=== PATIENT | male | born 1985 | race Caucasian/White ===

== ENCOUNTER 2019-04-16 21:51 | Emergency (ER) | payer SELFPAY ==
[~2019-04-16] VITALS: Ht 180.3 cm; Wt 70.3 kg
[~2019-04-16 21:51] MED LIST: ACHD5005 PO; NAPR-243 PO; PENI500T PO; TRM50T PO
--- NOTE | 2019-04-16 23:16 | NUR ---
pt relates alcohol tonoc and denies illegal drugs. positive pulse and sensation right foot. done seing pt now.
--- NOTE | 2019-04-16 23:56 | ED Lower Extremity ---
General Chief Complaint: Lower Extremity Stated Complaint: KICKED DEEP FREEZE/R FOOT PAIN Nursing Triage Note: pt here with " lizabeth and my stepson" who is a child. pt alert gcs 15. pt relates he kicked a deep freezer 3 hrs ago. pt c/o pain right lateral foot. pain rating 10. positive pulse and sensation right foot. on exam pt has ? deformity right lateral foot just below lateral ankle. no obvious injury right ankle and pt denies pain in ankle. no obvious injury toes or dorsal foot noted. Nursing Sepsis Screen: No Definite Risk Source: patient, family Exam Limitations: no limitations (WIL TERRY) History of Present Illness Date Seen by Provider: Apr 16, 2019 Time Seen by Provider: 23:45 Initial Comments Pt presents with left foot pain from kicking a deep freezer about 3 hours ago. He was drinking a little earlier tonight and kicked the freezer. The pain is over the 4th and 5 metatarsal area with mild bruising and swelling. The pain is worse with movement of the toes and to pressure. He states it is difficult to wa lk on the foot. Onset: this evening Pain/Injury Location: right 4th toe, right 5th toe Method of Injury: direct blow Modifying Factors: Worse With Movement (WIL TERRY) Onset: this evening Severity: moderate Method of Injury: direct blow Modifying Factors: Worse With Movement; Improves With Rest (SIL KERN MD) Allergies and Home Medications Allergies Coded Allergies: No Known Allergies (Unverified Allergy, Mild, 10/15/09) Home Medications Hydrocodone Bit/Acetaminophen 1 Each Tablet, 1-2 EACH PO Q 4 HOURS PRN PAIN Prescribed by: JOSE RAUL TOPETE on 12/21/11 1051 Patient Home Medication List Home Medication List Reviewed: Yes (SIL KERN MD) Review of Systems Constitutional: no symptoms reported EENTM: no symptoms reported Respiratory: no symptoms reported Cardiovascular: no symptoms reported Gastrointestinal: no symptoms reported Genitourinary: no symptoms reported Musculoskeletal: see HPI Skin: other (Mild edema and bruising over the injured area) Psychiatric/Neurological: No Symptoms Reported (WIL TERRY) Constitutional: no symptoms reported Respiratory: no symptoms reported Cardiovascular: no symptoms reported Musculoskeletal: joint pain, muscle pain Skin: change in color; No lesions (SIL KERN MD) Past Jtpsaax-Eckjel-Vlhyiy Hx Past Med/Social Hx: Reviewed Nursing Past Med/Soc Hx (SIL KERN MD) Patient Social History Alcohol Use: Occasionally Uses Recreational Drug Use: No Smoking Status: Current Everyday Smoker Recent Foreign Travel: No Contact w/Someone Who Travel: No Recent Infectious Disease Expo: No Physical Abuse: No Sexual Abuse: No (WIL TERRY) Alcohol Use: Regular Use (SIL KERN MD) Family Medical History No Pertinent Family Hx (SIL KERN MD) Physical Exam Vital Signs Vital Signs - First Documented 04/16/19 23:06 Temp 98.0 Pulse 88 Resp 16 B/P (MAP) 127/103 (111) Pulse Ox 94 O2 Delivery Room Air (SIL KERN MD) Vital Signs Capillary Refill : Less Than 3 Seconds (WIL TERRY) Height, Weight, BMI Height: 5'11.00" Weight: 155lbs. oz. 70.561598ms; BMI Method:Stated General Appearance: WD/WN, no apparent distress Cardiovascular: normal peripheral pulses, no edema, no JVD Feet: left foot non-tender, left foot normal range of motion; right foot bone tenderness, right foot limited range of motion, right foot pain, right foot swelling Neurologic/Tendon: normal sensation, normal motor functions, normal tendon functions, responds to pain, no evidence tendon injury Skin: normal color, warm/dry (WIL TERRY) General Appearance: WD/WN, no apparent distress Cardiovascular: regular rate, rhythm, no murmur Respiratory: lungs clear, normal breath sounds Feet: right foot other (small amount of ecchymosis to the lateral aspect of the foot over the fourth/fifth metatarsal base. Good range of motion. No obvious lesions otherwise.) Neurologic/Psychiatric: alert, oriented x 3 Skin: warm/dry, ecchymosis (as described above) (SIL KERN MD) Progress/Results/Core Measures Results/Orders My Orders Orders - SIL KERN MD Foot, Right, 3 View (04/16/19 23:46) (SIL KERN MD) Vital Signs/I&O 04/16/19 23:06 Temp 98.0 Pulse 88 Resp 16 B/P (MAP) 127/103 (111) Pulse Ox 94 O2 Delivery Room Air (SIL KERN MD) Blood Pressure Mean: 111 Progress Progress Note : Time: 23:45 Progress Note Seen by me. Pt has mild bruising and swelling over the right 4th and 5th metatarsals. It is tender to touch. Possible fracture. Xray of foot order by Dr. Kern. (WIL TERRY) Progress Note : Progress Note Seen and evaluated. I agree with above except as indicated. Have directed the plan of care. Patient is here with right foot pain after kicking a freezer. He admits to drinking alcohol tonight. States he does not think he has a problem with that but we'll continue to monitor. We did discuss concerns for alcoholism. X-ray ordered and shows no acute fracture. Discharged home with return precautions. Patient verbalize understanding instructions and agreement with plan. (SIL KERN MD) Diagnostic Imaging Diagonstic Imaging: Xray Plain Films/CT/US/NM/MRI: other Comments Right foot 3 views shows no acute fracture Reviewed: Reviewed by Me (SIL KERN MD) Departure Impression Primary Impression: Contusion of foot Qualified Codes: S90.31XA - Contusion of right foot, initial encounter Disposition: 01 HOME, SELF-CARE Condition: Improved Departure-Patient Inst. Decision time for Depature: 00:38 (SIL KERN MD) Referrals: NO,LOCAL PHYSICIAN (PCP/Family) Primary Care Physician Patient Instructions: Contusion (DC) Add. Discharge Instructions: All discharge instructions reviewed with patient and/or family. Voiced u nderstanding. Use ice packs over areas of concern 20 minutes per hour as needed for pain and swelling. You may take ibuprofen 600 mg every 8 hours as needed for pain. You may also take Tylenol/acetaminophen 1000 mg every 8 hours as needed for pain. Follow-up with her in a few days for recheck. Return for worse pain, swelling, difficulty walking or other concerns as needed. Work/School Note: Work Release Form Date Seen in the Emergency Department: Apr 16, 2019 Return to Work: Apr 18, 2019 Restrictions: No Restrictions WIL TERRY Apr 16, 2019 23:56 SIL KERN MD Apr 17, 2019 00:40
--- NOTE | 2019-04-17 00:31 | NUR ---
SAID JUST ICE BAG. TECH GOT THAT FOR PT.
[2019-04-17 00:47] VITALS: BP 0/0
--- NOTE | 2019-04-17 00:47 | NUR ---
D/C INSTRUCTIONS TO PT. TOLD TO READ ALL PAPERS. NO SCRIPTS GIVEN. PT LEFT IN W/C WITH SAVANNAH. I HELPED PT TO THE CAR. PT KNOWS F/I./ I WENT OVER THE HANDTYPED BY DR GUAJARDO ON THE CHART. PT HAD NO IV. WORK RELEASE GIVEN. NO D/C VS TAKEN. PT WAS OUT IN W/R WAITING FOR HIS D/C INSTRUCTIONS.
--- NOTE | 2019-04-17 05:50 | Diagnostic Imaging Report ---
EXAMINATION: Right foot at 1157 PM INDICATION: Injury, foot pain Three views were obtained. There are no prior studies available for comparison. There is no fracture, dislocation or acute bony abnormality evident. The Lisfranc joint is well maintained. The soft tissues are unremarkable. IMPRESSION: There is no evidence for an acute bony abnormality. Dictated on workstation # [id number]
== END 2019-04-17 00:47 | disposition home or self-care (01) ==
LOC: EDUNIT# 21:51 → ER 21:52
DX: S90.31XA Contusion of right foot, initial encounter (principal); R40.2412 Glasgow coma scale score 13-15, at arrival to emergency department; F17.200 Nicotine dependence, unspecified, uncomplicated; W22.8XXA Striking against or struck by other objects, initial encounter
CPT/HCPCS: 73630

== ENCOUNTER 2019-05-21 14:10 | Outpatient (CLI) | payer OTHER ==
[~2019-05-21] VITALS: Ht 180.3 cm; Wt 70.4 kg
[2019-05-23] MEDS ORDERED: ACHD5005 PO (09:01)
== END 2019-05-21 16:07 | disposition home or self-care (01) ==
LOC: PREOP 14:10
PROVIDERS: ATTEND Surgery
DX: Z01.818 Encounter for other preprocedural examination (principal)

== ENCOUNTER 2020-04-23 20:43 | Emergency (ER) | payer SELFPAY ==
[2020-04-23] MEDS ORDERED: HYDROcodone/APAP 5 MG/325 MG (LORTAB) TAB ONE (20:59)
[2020-04-23] MEDS ORDERED: RX-HYDROCODONE/APAP 5/325 MG #4 TAB PK PO ONE (22:11)
--- NOTE | 2020-04-24 14:09 | Diagnostic Imaging Report ---
Chuckie Brito Date of : 1985. Right foot 3 views on 04/23 at 9:41 PM. Indication: Fall from a ladder. 3 views of the right foot were obtained. There is a comminuted fracture of the calcaneus with loss of Boehler's angle. Fracture lines extend into the subtalar joint. Midfoot is unremarkable. The metatarsals and phalanges appear to be intact. IMPRESSION: Comminuted intra-articular calcaneus fracture. Dictated by: Dictated on workstation # [id number]
--- NOTE | 2020-04-24 14:09 | Diagnostic Imaging Report ---
Chuckie Brito Date of : 1985 Right ankle 3 views on 04/23 at 9:35 PM. Indication: Fall from a ladder. 3 views of the right ankle were obtained. Ankle mortise is well maintained. Talar dome is smooth. There is a comminuted fracture of the calcaneus with loss of Boehler's angle. Fracture lines extend into this subtalar joint. Moderate soft tissue swelling about the lateral ankle is noted. IMPRESSION: Comminuted intra-articular calcaneus fracture. Dictated by: Dictated on workstation # [id number]
--- NOTE | 2020-04-24 14:10 | Diagnostic Imaging Report ---
Chuckie Brito Date of : 1985. Right tibia and fibula 2 views on 04/23 at 9:44 PM. Indication: Fall from ladder. 2 views of the right tibia and fibula were obtained. Alignment at the knee and ankle appears normal. There is comminuted fracture of the calcaneus with intra-articular extension into the subtalar joint. Impression: Calcaneus fracture. Tibia and fibula appear to be intact. There is moderate soft tissue swelling about the ankle. Dictated by: Dictated on workstation # [id number]
[2020-04-24 16:44] LABS: HEMATOCRIT 41 % (40-54); HEMOGLOBIN 14.4 G/DL (13.3-17.7); MEAN CORPUSCULAR HEMOGLOBIN 33 PG (25-34); MEAN CORPUSCULAR HGB CONC 35 G/DL (32-36); MEAN CORPUSCULAR VOLUME 96 FL (80-99); PLATELET COUNT 181 10^3/uL (130-400); RED CELL DISTRIBUTION WIDTH 13.4 % (10.0-14.5); WHITE BLOOD COUNT 6.9 10^3/uL (4.3-11.0)
[2020-04-24 16:45] LABS: BASOPHILS % (AUTO) 0 % (0-10); EOSINOPHILS # (AUTO) 0.1 10^3/uL (0.0-0.3); EOSINOPHILS % (AUTO) 1 % (0-10); LYMPHOCYTES # (AUTO) 0.9 X 10^3 (1.0-4.0); LYMPHOCYTES % (AUTO) 13 % (12-44); MEAN PLATELET VOLUME 9.4 FL (7.4-10.4); MONOCYTES # (AUTO) 0.9 X 10^3 (0.0-1.0); MONOCYTES % (AUTO) 14 % (0-12); NEUTROPHILS % (AUTO) 73 % (42-75); SODIUM 139 MMOL/L (135-145)
[2020-04-24 16:46] LABS: ALANINE AMINOTRANSFERASE 28 U/L (0-55); ALBUMIN 4.5 GM/DL (3.2-4.5); ALKALINE PHOSPHATASE 90 U/L (40-136); BILIRUBIN,TOTAL 0.8 MG/DL (0.1-1.0); BUN/CREATININE RATIO 15; CALCIUM 9.5 MG/DL (8.5-10.1); CARBON DIOXIDE 22 MMOL/L (21-32); CHLORIDE 103 MMOL/L (98-107); CREATININE SERUM 0.92 MG/DL (0.60-1.30); GFR ESTIMATED > 60; GLUCOSE 88 MG/DL (70-105); POTASSIUM 3.5 MMOL/L (3.6-5.0); TOTAL PROTEIN 7.3 GM/DL (6.4-8.2)
== END 2020-04-23 23:10 | disposition home or self-care (01) ==
LOC: EDUNIT# 20:43 → ER 20:43
DX: S92.062A Displaced intraarticular fracture of left calcaneus, initial encounter for closed fracture (principal); S92.061A Displaced intraarticular fracture of right calcaneus, initial encounter for closed fracture; W11.XXXA Fall on and from ladder, initial encounter; Y92.59 Other trade areas as the place of occurrence of the external cause; Y99.0 Civilian activity done for income or pay
CPT/HCPCS: 29515; 73590; 73610; 73630; 80053; 85025; 99284; G0480; 36415; 80320

== ENCOUNTER 2020-10-05 10:03 | Emergency (ER) | payer MEDICAID ==
[~2020-10-05] VITALS: Ht 177 cm; Wt 68.0 kg
--- NOTE | 2020-10-05 11:45 | ED Upper Extremity ---
General Chief Complaint: Laceration Stated Complaint: R HAND LACERATION Nursing Triage Note: laceration of right 2nd finger Nursing Sepsis Screen: No Definite Risk Source: patient Exam Limitations: no limitations History of Present Illness Date Seen by Provider: Oct 05, 2020 Time Seen by Provider: 11:43 Initial Comments Laceration to the pad of the middle phalanx middle finger right hand. Tetanus up-to-date. This is from the sharp edge of a toaster at home just prior to arrival. Onset: just prior to arrival Severity: moderate Pain/Injury Location: right hand Modifying Factors: Worse With Movement Allergies and Home Medications Allergies Coded Allergies: NKANo Known Allergies (Unverified Allergy, Mild, 10/15/09) Home Medications Hydrocodone Bit/Acetaminophen 1 Tab Tab, 1 TAB PO Q6H PRN for PAIN-MODERATE Prescribed by: JOSHUA BENJAMIN on 05/23/19 0901 Patient Home Medication List Home Medication List Reviewed: Yes Review of Systems Constitutional: see HPI EENTM: see HPI Respiratory: no symptoms reported Cardiovascular: no symptoms reported Genitourinary: no symptoms reported Musculoskeletal: no symptoms reported Skin: no symptoms reported Psychiatric/Neurological: No Symptoms Reported Past Ncpokmo-Opjpji-Wmhfsf Hx Patient Social History Type Used: Cigarettes Recent Infectious Disease Expo: No Recent Hopitalizations: No Seasonal Allergies Seasonal Allergies: No Past Medical History Surgeries: Yes (teeth removed, ) Respiratory: No Currently Using CPAP: No Currently Using BIPAP: No Cardiac: No Neurological: No Genitourinary: No Gastrointestinal: No Musculoskeletal: No Endocrine: No HEENT: No Cancer: No Psychosocial: No Integumentary: No Blood Disorders: No Family Medical History No Pertinent Family Hx Physical Exam Vital Signs Vital Signs - First Documented 10/05/20 10:56 Temp 36.8 Pulse 77 Resp 16 B/P (MAP) 114/79 (91) Capillary Refill : Less Than 3 Seconds Height, Weight, BMI Height: 5'11.00" Weight: 155lbs. oz. 70.063408es; 21.00 BMI Method:Stated General Appearance: WD/WN, no apparent distress Respiratory: no respiratory distress, no accessory muscle use Shoulder: normal inspection, non-tender Hand: normal inspection, non-tender, laceration (1 cm superficial laceration to the pad of the middle phalanx middle finger right hand without active bleeding. Closed with skin affix tissue adhesive) Neurologic/Psychiatric: alert, normal mood/affect, oriented x 3 Skin: normal color, warm/dry Progress/Results/Core Measures Results/Orders Vital Signs/I&O 10/05/20 10:56 Temp 36.8 Pulse 77 Resp 16 B/P (MAP) 114/79 (91) Blood Pressure Mean: 91 Departure Impression Primary Impression: Finger laceration Disposition: 01 HOME, SELF-CARE Condition: Stable Departure-Patient Inst. Decision time for Depature: 11:45 Referrals: NO,LOCAL PHYSICIAN (PCP/Family) Primary Care Physician Patient Instructions: Laceration Repair With Glue (DC) Add. Discharge Instructions: 1. Let the glue fall off on its own in 3 to 5 days. Do not apply any lotions creams or ointments. Try to keep from bending the finger much. All discharge instructions reviewed with patient and/or family. Voiced understanding. CED SCHUMACHER APRN Oct 05, 2020 11:45
[2020-10-05 12:00] VITALS: BP 114/79
== END 2020-10-05 12:00 | disposition home or self-care (01) ==
LOC: EDUNIT# 10:03 → ER 10:05
DX: S61.312A Laceration without foreign body of right middle finger with damage to nail, initial encounter (principal); W45.8XXA Other foreign body or object entering through skin, initial encounter
CPT/HCPCS: 99282

== ENCOUNTER 2020-10-24 23:58 | Emergency (ER) | payer MEDICAID ==
[~2020-10-24] VITALS: Ht 177 cm; Wt 68.0 kg
--- NOTE | 2020-10-25 00:08 | ED Psychosocial ---
General Stated Complaint: ETOH Source: patient, EMS, spouse Exam Limitations: no limitations History of Present Illness Date Seen by Provider: Oct 24, 2020 Time Seen by Provider: 23:57 Initial Comments Patient presents ER by EMS from side of the road where police found him wandering. EMS says the relates he had been drinking vodka tonight and was asleep on the couch when she went to bed and he could not have been gone for more than about 90 minutes. Temperature was 93 degrees when EMS encountered him. They initiated 2 IVs and a liter of warm saline. Patient does not give much meaningful history about what he was doing tonight of them drinking and he needs to urinate. He denies pain anywhere, shortness of air. He was able to move himself across the bed under his own power. Allergies and Home Medications Allergies Coded Allergies: DENISEANo Known Allergies (Unverified Allergy, Mild, 10/15/09) Home Medications Hydrocodone Bit/Acetaminophen 1 Tab Tab, 1 TAB PO Q6H PRN for PAIN-MODERATE Prescribed by: JOSHUA BENJAMIN on 05/23/19 0901 Patient Home Medication List Home Medication List Reviewed: Yes Review of Systems Constitutional: No chills, No diaphoresis EENTM: No ear discharge, No ear pain Respiratory: No cough, No short of breath Cardiovascular: No edema, No palpitations Gastrointestinal: No abdominal pain, No nausea, No vomiting Genitourinary: No discharge, No dysuria Musculoskeletal: No back pain, No joint pain All Other Systems Reviewed Negative Unless Noted: Yes Past Ndivewx-Ppzuhq-Bfkjxu Hx Patient Social History Alcohol Use: Regular Use Smoking Status: Current Everyday Smoker Type Used: Cigarettes Recent Hopitalizations: No Seasonal Allergies Seasonal Allergies: No Past Medical History Surgeries: Yes (teeth removed, "FATTY TUMOR REMOVED FROM RT CHIN/NECK) Respiratory: No Currently Using CPAP: No Currently Using BIPAP: No Cardiac: No Neurological: No Genitourinary: No Gastrointestinal: No Musculoskeletal: No Endocrine: No HEENT: No Cancer: No Psychosocial: No Integumentary: No Blood Disorders: No Family Medical History No Pertinent Family Hx Physical Exam Vital Signs - First Documented 10/24/20 23:58 Temp 34.7 Pulse 79 Resp 18 B/P (MAP) 127/97 (107) Pulse Ox 97 O2 Delivery Room Air Capillary Refill : Height, Weight, BMI Height: 5'11.00" Weight: 155lbs. oz. 70.602415mf; 21.00 BMI Method:Stated General Appearance: WD/WN, mild distress HEENT: PERRL/EOMI (4 mm bilateral reactive. Negative for raccoon sign.), normal ENT inspection, TMs normal (Negative for hemotympanum or arcos sign), pharynx normal Neck: non-tender, full range of motion, normal inspection Respiratory: lungs clear, normal breath sounds, no respiratory distress, no accessory muscle use Cardiovascular: normal peripheral pulses, regular rate, rhythm Peripheral Pulses: 2+ Radial Pulses (R), 2+ Radial Pulses (L) Gastrointestinal: non tender, soft Neurologic/Psychiatric: alert, normal mood/affect, other (Oriented to person but not time place or situation. Cooperative.) Behavior/Eye Contact: cooperative, good eye contact Thoughts/Hallucinations: normal thought pattern, no apparent hallucination Skin: normal color, cool Progress/Results/Core Measures Results/Orders Lab Results Laboratory Tests Test 10/25/20 00:00 10/25/20 00:08 Range/Units White Blood Count 7.1 4.3-11.0 10^3/uL Red Blood Count 4.85 4.30-5.52 10^6/uL Hemoglobin 15.3 13.3-17.7 g/dL Hematocrit 45 40-54 % Mean Corpuscular Volume 93 80-99 fL Mean Corpuscular Hemoglobin 32 25-34 pg Mean Corpuscular Hemoglobin Concent 34 32-36 g/dL Red Cell Distribution Width 13.5 10.0-14.5 % Platelet Count 246 130-400 10^3/uL Mean Platelet Volume 9.3 9.0-12.2 fL Immature Granulocyte % (Auto) 0 % Neutrophils (%) (Auto) 62 42-75 % Lymphocytes (%) (Auto) 28 12-44 % Monocytes (%) (Auto) 7 0-12 % Eosinophils (%) (Auto) 2 0-10 % Basophils (%) (Auto) 1 0-10 % Neutrophils # (Auto) 4.4 1.8-7.8 10^3/uL Lymphocytes # (Auto) 2.0 1.0-4.0 10^3/uL Monocytes # (Auto) 0.5 0.0-1.0 10^3/uL Eosinophils # (Auto) 0.2 0.0-0.3 10^3/uL Basophils # (Auto) 0.0 0.0-0.1 10^3/uL Immature Granulocyte # (Auto) 0.0 0.0-0.1 10^3/uL Sodium Level 144 135-145 MMOL/L Potassium Level 4.1 3.6-5.0 MMOL/L Chloride Level 111 H 98-107 MMOL/L Carbon Dioxide Level 20 L 21-32 MMOL/L Anion Gap 13 5-14 MMOL/L Blood Urea Nitrogen 12 7-18 MG/DL Creatinine 0.94 0.60-1.30 MG/DL Estimat Glomerular Filtration Rate > 60 BUN/Creatinine Ratio 13 Glucose Level 92 70-105 MG/DL Calcium Level 8.2 L 8.5-10.1 MG/DL Corrected Calcium 7.9 L 8.5-10.1 MG/DL Magnesium Level 2.3 1.6-2.4 MG/DL Total Bilirubin 0.2 0.1-1.0 MG/DL Aspartate Amino Transf (AST/SGOT) 20 5-34 U/L Alanine Aminotransferase (ALT/SGPT) 13 0-55 U/L Alkaline Phosphatase 109 40-136 U/L Total Protein 7.4 6.4-8.2 GM/DL Albumin 4.4 3.2-4.5 GM/DL Serum Alcohol 368 *H <10 MG/DL Urine Color YELLOW Urine Clarity CLEAR Urine pH 6.0 5-9 Urine Specific [place] <=1.005 1.016-1.022 Urine Protein NEGATIVE NEGATIVE Urine Glucose (UA) NEGATIVE NEGATIVE Urine Ketones NEGATIVE NEGATIVE Urine Nitrite NEGATIVE NEGATIVE Urine Bilirubin NEGATIVE NEGATIVE Urine Urobilinogen 0.2 < = 1.0 MG/DL Urine Leukocyte Esterase NEGATIVE NEGATIVE Urine RBC (Auto) NEGATIVE NEGATIVE Urine RBC NONE /HPF Urine WBC NONE /HPF Urine Squamous Epithelial Cells 0-2 /HPF Urine Crystals NONE /LPF Urine Bacteria NEGATIVE /HPF Urine Casts NONE /LPF Urine Mucus SMALL H /LPF Urine Culture Indicated NO Urine Opiates Screen NEGATIVE NEGATIVE Urine Oxycodone Screen NEGATIVE NEGATIVE Urine Methadone Screen NEGATIVE NEGATIVE Urine Propoxyphene Screen NEGATIVE NEGATIVE Urine Barbiturates Screen NEGATIVE NEGATIVE Ur Tricyclic Antidepressants Screen NEGATIVE NEGATIVE Urine Phencyclidine Screen NEGATIVE NEGATIVE Urine Amphetamines Screen NEGATIVE NEGATIVE Urine Methamphetamines Screen NEGATIVE NEGATIVE Urine Benzodiazepines Screen NEGATIVE NEGATIVE Urine Cocaine Screen NEGATIVE NEGATIVE Urine Cannabinoids Screen NEGATIVE NEGATIVE My Orders Orders - ZOFIA CALERO Cbc With Automated Diff (10/25/20 00:02) Comprehensive Metabolic Panel (10/25/20 00:02) Magnesium (10/25/20 00:02) Alcohol (10/25/20 00:02) Ua Culture If Indicated (10/25/20 00:02) Drug Screen Stat (Urine) (10/25/20 00:02) Ct Head/Cervical Spine Wo (10/25/20 00:02) Vital Signs/I&O 10/24/20 23:58 Temp 34.7 Pulse 79 Resp 18 B/P (MAP) 127/97 (107) Pulse Ox 97 O2 Delivery Room Air Progress Progress Note : Time: 00:07 Progress Note The patient is about 95 degrees at the time he arrives. We are going to continue some warming fluids, blankets and get some blood in urine. Diagnostic Imaging Diagonstic Imaging: CT Plain Films/CT/US/NM/MRI: c-spine, head Comments No acute intracranial hemorrhage, mass-effect, midline shift, tumor or fracture of the calvarium. Normal cervical spine CT. Reviewed: Reviewed [facility] Study, Reviewed by Me Departure Impression Primary Impression: Alcohol intoxication Qualified Codes: F10.920 - Alcohol use, unspecified with intoxication, uncomplicated Additional Impression: Hypothermia Qualified Codes: T68.XXXA - Hypothermia, initial encounter Disposition: 01 HOME, SELF-CARE Condition: Improved Departure-Patient Inst. Decision time for Depature: 00:52 Referrals: NO,LOCAL PHYSICIAN (PCP/Family) Primary Care Physician Patient Instructions: Alcohol Intoxication ED, Hypothermia Add. Discharge Instructions: Stay home under supervision. Use of blankets, drinking of mildly warm fluids such as water, tea etc. are recommended. Abstain from alcohol for now. Follow-up with your primary care doctor as necessary. Work/School Note: Work Release Form Date Seen in the Emergency Department: Oct 25, 2020 Return to Work: Oct 26, 2020 Restrictions: No Restrictions ZOFIA CALERO Oct 25, 2020 00:08
[2020-10-25 00:17] LABS: BILIRUBIN,URINE NEGATIVE (NEGATIVE); CLARITY,URINE CLEAR; COLOR,URINE YELLOW; GLUCOSE, URINE (UA) NEGATIVE (NEGATIVE); KETONES,URINE NEGATIVE (NEGATIVE); LEUKOCYTE ESTERASE ,URINE NEGATIVE (NEGATIVE); NITRITE,URINE NEGATIVE (NEGATIVE); PROTEIN,URINE NEGATIVE (NEGATIVE)
[2020-10-25 00:20] LABS: ALBUMIN 4.4 GM/DL (3.2-4.5)
[2020-10-25 00:21] LABS: BASOPHILS % (AUTO) 1 % (0-10); CHLORIDE 111 MMOL/L (98-107); EOSINOPHILS # (AUTO) 0.2 10^3/uL (0.0-0.3); EOSINOPHILS % (AUTO) 2 % (0-10); HEMATOCRIT 45 % (40-54); HEMOGLOBIN 15.3 g/dL (13.3-17.7); LYMPHOCYTES % (AUTO) 28 % (12-44); MEAN CORPUSCULAR HEMOGLOBIN 32 pg (25-34); MEAN CORPUSCULAR HGB CONC 34 g/dL (32-36); MEAN CORPUSCULAR VOLUME 93 fL (80-99); MEAN PLATELET VOLUME 9.3 fL (9.0-12.2); MONOCYTES # (AUTO) 0.5 10^3/uL (0.0-1.0); MONOCYTES % (AUTO) 7 % (0-12); NEUTROPHILS # (AUTO) 4.4 10^3/uL (1.8-7.8); NEUTROPHILS % (AUTO) 62 % (42-75); PLATELET COUNT 246 10^3/uL (130-400); POTASSIUM 4.1 MMOL/L (3.6-5.0); SODIUM 144 MMOL/L (135-145); WHITE BLOOD COUNT 7.1 10^3/uL (4.3-11.0)
[2020-10-25 00:22] LABS: CALCIUM 8.2 MG/DL (8.5-10.1)
[2020-10-25 00:23] LABS: GLUCOSE 92 MG/DL (70-105); TOTAL PROTEIN 7.4 GM/DL (6.4-8.2)
[2020-10-25 00:24] LABS: CARBON DIOXIDE 20 MMOL/L (21-32)
[2020-10-25 00:25] LABS: BILIRUBIN,TOTAL 0.2 MG/DL (0.1-1.0)
[2020-10-25 00:26] LABS: BACTERIA,URINE NEGATIVE /HPF; SQUAMOUS EPITHELIAL CELL,UR 0-2 /HPF
[2020-10-25 00:26] LABS: ALKALINE PHOSPHATASE 109 U/L (40-136)
[2020-10-25 00:27] LABS: CREATININE SERUM 0.94 MG/DL (0.60-1.30); GFR ESTIMATED > 60
[2020-10-25 00:28] LABS: BUN/CREATININE RATIO 13
[2020-10-25 00:30] LABS: ALANINE AMINOTRANSFERASE 13 U/L (0-55); MAGNESIUM 2.3 MG/DL (1.6-2.4)
[2020-10-25 00:31] LABS: AMPHETAMINE SCREEN, URINE NEGATIVE (NEGATIVE); BARBITURATE SCREEN URINE NEGATIVE (NEGATIVE); BENZODIAZEPINES SCREEN URINE NEGATIVE (NEGATIVE); CANNABINOID SCREEN, URINE NEGATIVE (NEGATIVE); COCAINE SCREEN URINE NEGATIVE (NEGATIVE); METHADONE STAT NEGATIVE (NEGATIVE); METHAMPHETAMINE SCREEN URINE S NEGATIVE (NEGATIVE); OPIATE SCREEN URINE NEGATIVE (NEGATIVE); OXYCODONE STAT NEGATIVE (NEGATIVE); PROPOXYPHENE STAT NEGATIVE (NEGATIVE); TRICYCLIC ANTIDEPRESSANTS SCRE NEGATIVE (NEGATIVE)
[2020-10-25 00:59] VITALS: BP 118/79
--- NOTE | 2020-10-25 05:16 | Diagnostic Imaging Report ---
PROCEDURE: CT head and CT cervical spine without contrast. TECHNIQUE: Multiple contiguous axial images were obtained through the brain and cervical spine without the use of intravenous contrast. Sagittal and coronal reformations through the cervical spine were then performed. Auto Exposure Controls were utilized during the CT exam to meet ALARA standards for radiation dose reduction. INDICATION: Trauma There are no prior studies available for comparison. CT HEAD: There is no mass, shift of the midline or hemorrhage to suggest an acute intracranial abnormality. The ventricles are not abnormally dilated. The bone windows show no evidence for a fracture or for a destructive lesion. The orbits are symmetrical and within normal limits. There is mucosal thickening of both maxillary antra. The sinuses are otherwise generally clear. IMPRESSION: 1. There is no evidence for an acute intracranial abnormality. 2. If clinical concern regarding an underlying abnormality persists, then MRI would be recommended for further study. CT cervical spine: The reconstructed parasagittal images show the vertebral body heights and alignment to be generally within normal limits. The intervertebral disc spaces are fairly well-maintained. There is no high-grade central stenosis noted. There is no fracture or acute bony abnormality appreciated. There is no sign of retropharyngeal edema. The thyroid gland is not well visualized. The lung apices were not included on this exam either. IMPRESSION: 1. There is no evidence for an acute bony abnormality in the cervical spine. 2. I agree with the [facility] interpretation of the study. Dictated by: Dictated on workstation # [id number]
== END 2020-10-25 01:10 | disposition home or self-care (01) ==
LOC: EDUNIT# 23:58 → ER 10-25
DX: F10.129 Alcohol abuse with intoxication, unspecified (principal); T68.XXXA Hypothermia, initial encounter; F17.210 Nicotine dependence, cigarettes, uncomplicated; X31.XXXA Exposure to excessive natural cold, initial encounter
CPT/HCPCS: 70450; 72125; 80053; 80306; 81000; 83735; 85025; 99283; G0480; 36415; 80320

== ENCOUNTER 2021-01-08 23:55 | Observation (INO) | payer MEDICAID ==
[~2021-01-08] VITALS: Ht 177.8 cm; Wt 65.4 kg
[2021-01-09] MEDS ORDERED: LACTATED RINGERS 1,000 ML IV ONE (00:15)
[2021-01-09 00:20] LABS: BILIRUBIN,URINE NEGATIVE (NEGATIVE); CLARITY,URINE CLEAR; COLOR,URINE YELLOW; GLUCOSE, URINE (UA) NEGATIVE (NEGATIVE); KETONES,URINE NEGATIVE (NEGATIVE); LEUKOCYTE ESTERASE ,URINE NEGATIVE (NEGATIVE); NITRITE,URINE NEGATIVE (NEGATIVE); PROTEIN,URINE NEGATIVE (NEGATIVE)
[2021-01-09 00:36] LABS: CHLORIDE 106 MMOL/L (98-107); POTASSIUM 3.6 MMOL/L (3.6-5.0); SODIUM 143 MMOL/L (135-145)
[2021-01-09 00:37] LABS: ALBUMIN 4.7 GM/DL (3.2-4.5); BASOPHILS % (AUTO) 1 % (0-10); EOSINOPHILS # (AUTO) 0.1 10^3/uL (0.0-0.3); EOSINOPHILS % (AUTO) 2 % (0-10); HEMATOCRIT 46 % (40-54); HEMOGLOBIN 15.7 g/dL (13.3-17.7); LYMPHOCYTES % (AUTO) 36 % (12-44); MEAN CORPUSCULAR HEMOGLOBIN 32 pg (25-34); MEAN CORPUSCULAR HGB CONC 34 g/dL (32-36); MEAN CORPUSCULAR VOLUME 93 fL (80-99); MEAN PLATELET VOLUME 9.3 fL (9.0-12.2); MONOCYTES # (AUTO) 0.6 10^3/uL (0.0-1.0); MONOCYTES % (AUTO) 10 % (0-12); NEUTROPHILS # (AUTO) 2.9 10^3/uL (1.8-7.8); NEUTROPHILS % (AUTO) 52 % (42-75); PLATELET COUNT 289 10^3/uL (130-400); WHITE BLOOD COUNT 5.7 10^3/uL (4.3-11.0)
--- NOTE | 2021-01-09 00:38 | ED General ---
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 ) History of Present Illness Date Seen by Provider: January 09, 2021 Time Seen by Provider: 00:10 Initial Comments PT ARRIVES VIA EMS FROM HOME EMS REPORT THAT FAMILY/ CALLED FOR PATIENT THAT WAS "UNRESPONSIVE" WHEN EMS ARRIVED, PT WAS AWAKE, SITTING UP AND TALKING AND IS INTOXICATED ON ARRIVAL HERE, ASKED PT WHY HE IS HERE AND HE STATES "BECAUSE I HAD TOO MUCH TO DRINK" STATES HE DRINKS HEAVILY EVERY DAY--ADMITS TO DRINKING 1/2 TO 1 PINT OF VODKA EVERY DAY STATES "I'VE HAD ALOT MORE THAN THAT" BUT STATES HE HAS NO IDEA HOW MUCH HE HAS ACTUALLY DRANK TONIGHT STATES HE STARTED DRINKING WHEN HE GOT HOME FROM WORK BETWEEN 1700 AND 1800. PT HAS NO COMPLAINTS IS UNKNOWN IF HE HAS EVER HAD ANY ALCOHOL WITHDRAWL SYMPTOMS IN THE PAST EMS REPORT THAT WAS UNABLE TO GIVE ANY HISTORY ON PT, STATING "WE HAVEN'T REALLY BEEN VERY LONG" DID NOT ACCOMPANY PT TO HOSPITAL OR CALL AT ANY TIME DURING ER STAY PCP: DINORA-K, PER PT Allergies and Home Medications Allergies Coded Allergies: NKANo Known Allergies (Unverified Allergy, Mild, 10/15/09) Home Medications Hydrocodone Bit/Acetaminophen 1 Tab Tab, 1 TAB PO Q6H PRN for PAIN-MODERATE Prescribed by: JOSHUA BENJAMIN on 05/23/19 0901 Patient Home Medication List Home Medication List Reviewed: Yes Review of Systems Review of Systems Constitutional: see HPI Respiratory: no symptoms reported Cardiovascular: no symptoms reported Gastrointestinal: no symptoms reported Genitourinary: no symptoms reported Musculoskeletal: no symptoms reported Skin: other (ABRASION ON RIGHT LOWER LEG. CHRONIC PSORIASIS) Psychiatric/Neurological: See HPI Hematologic/Lymphatic: No Symptoms Reported Immunological/Allergic: no symptoms reported Past Srqmaha-Vjmknn-Ukkgmd Hx Past Med/Social Hx: Reviewed and Corrections made Patient Social History Alcohol Use: Regular Use Alcohol Beverage of Choice: Vodka Drug of Choice: THC Smoking Status: Current Everyday Smoker Type Used: Cigarettes Recent Hopitalizations: No Substance type: Marijuana Immunizations Up To Date Tetanus Booster (TDap): Less than 5yrs Seasonal Allergies Seasonal Allergies: No Past Medical History Surgeries: Yes (TEETH REMOVED, "FATTY TUMOR" REMOVED FROM RT CHIN/NECK) Respiratory: No Currently Using CPAP: No Currently Using BIPAP: No Cardiac: No Neurological: No Genitourinary: No Gastrointestinal: No Musculoskeletal: Yes ("BROKE HIS BACK" --NO SURGERY, PER PT ) Endocrine: No HEENT: Yes (MULTIPLE DENTAL EXTRACTIONS) Cancer: No Psychosocial: Yes (SUBSTANCE ABUSE) Integumentary: Yes Psoriasis Blood Disorders: No Family Medical History No Pertinent Family Hx SOCIAL HISTORY: -ETOH--DRINKS 1/2 TO 1 PINT OF VODKA EVERY DAY, SOMETIMES MORE THAN THAT -DRUGS--REGULAR MARIJUANA USE -SMOKES 1 PPD Physical Exam Vital Signs Vital Signs - First Documented 01/09/21 00:15 Temp 36.2 Pulse 81 Resp 20 B/P (MAP) 113/92 (99) Pulse Ox 100 O2 Delivery Room Air Capillary Refill : Height, Weight, BMI Height: 5'11.00" Weight: 155lbs. oz. 70.926378ms; 21.00 BMI Method:Stated General Appearance: No Apparent Distress, WD/WN, Thin, Other (REEKS OF ETOH, DESPITE WEARING N95 PLUS SURGICAL MASK. PT IS AWAKE AND COOPERATIVE, WITH MODERATELY SLURRED SPEECH. ) HEENT: PERRL/EOMI, Normal ENT Inspection Neck: Normal Inspection, Non Tender Respiratory: Normal Breath Sounds, No Accessory Muscle Use, No Respiratory D istress Cardiovascular: Regular Rate, Rhythm, No Edema, No Murmur Gastrointestinal: Non Tender, Soft Back: Normal Inspection, No CVA Tenderness, No Vertebral Tenderness Extremity: Normal Capillary Refill, Normal Range of Motion, Non Tender, No Calf Tenderness, No Pedal Edema, Other (HAS SUPERFICIAL ABRASION TO LATERAL ASPECT OF RIGHT LOWER LEG--NO BLEEDING OR FOREIGN BODY) Neurologic/Psychiatric: Alert, Oriented x3, No Motor/Sensory Deficits, lead quality technician II- XII Norm as Tested, Other (DOES APPEAR INTOXICATED, BUT IS FAIR HISTORIAN ABOUT EVENTS OF THIS EVENING, ABLE TO FOLLOW COMMANDS, AND IS VERY COOPERATIVE AND RESPECTFUL AT THIS TIME. ) Skin: Normal Color, Warm/Dry, Other (ABRASION NOTED ABOVE. PT WITH EXTENSIVE PSORIATIC PLAQUES OVER ENTIRE BODY) Progress/Results/Core Measures Suspected Sepsis SIRS Temperature: Pulse: Respiratory Rate: Laboratory Tests 01/09/21 00:15: White Blood Count 5.7 Blood Pressure / Mean: Laboratory Tests 01/09/21 00:15: Creatinine 0.96, INR Comment 1.0, Platelet Count 289, Total Bilirubin 0.3 Results/Orders Lab Results Laboratory Tests Test 01/09/21 00:08 01/09/21 00:15 Range/Units Urine Color YELLOW Urine Clarity CLEAR Urine pH 6.0 5-9 Urine Specific Lott <=1.005 1.016-1.022 Urine Protein NEGATIVE NEGATIVE Urine Glucose (UA) NEGATIVE NEGATIVE Urine Ketones NEGATIVE NEGATIVE Urine Nitrite NEGATIVE NEGATIVE Urine Bilirubin NEGATIVE NEGATIVE Urine Urobilinogen 0.2 < = 1.0 MG/DL Urine Leukocyte Esterase NEGATIVE NEGATIVE Urine RBC (Auto) NEGATIVE NEGATIVE Urine RBC NONE /HPF Urine WBC NONE /HPF Urine Crystals PRESENT H /LPF Urine Bacteria NEGATIVE /HPF Urine Casts NONE /LPF Urine Mucus NEGATIVE /LPF Urine Culture Indicated NO Urine Opiates Screen NEGATIVE NEGATIVE Urine Oxycodone Screen NEGATIVE NEGATIVE Urine Methadone Screen NEGATIVE NEGATIVE Urine Propoxyphene Screen NEGATIVE NEGATIVE Urine Barbiturates Screen NEGATIVE NEGATIVE Ur Tricyclic Antidepressants Screen NEGATIVE NEGATIVE Urine Phencyclidine Screen NEGATIVE NEGATIVE Urine Amphetamines Screen NEGATIVE NEGATIVE Urine Methamphetamines Screen NEGATIVE NEGATIVE Urine Benzodiazepines Screen NEGATIVE NEGATIVE Urine Cocaine Screen NEGATIVE NEGATIVE Urine Cannabinoids Screen NEGATIVE NEGATIVE White Blood Count 5.7 4.3-11.0 10^3/uL Red Blood Count 4.93 4.30-5.52 10^6/uL Hemoglobin 15.7 13.3-17.7 g/dL Hematocrit 46 40-54 % Mean Corpuscular Volume 93 80-99 fL Mean Corpuscular Hemoglobin 32 25-34 pg Mean Corpuscular Hemoglobin Concent 34 32-36 g/dL Red Cell Distribution Width 13.6 10.0-14.5 % Platelet Count 289 130-400 10^3/uL Mean Platelet Volume 9.3 9.0-12.2 fL Immature Granulocyte % (Auto) 0 % Neutrophils (%) (Auto) 52 42-75 % Lymphocytes (%) (Auto) 36 12-44 % Monocytes (%) (Auto) 10 0-12 % Eosinophils (%) (Auto) 2 0-10 % Basophils (%) (Auto) 1 0-10 % Neutrophils # (Auto) 2.9 1.8-7.8 10^3/uL Lymphocytes # (Auto) 2.0 1.0-4.0 10^3/uL Monocytes # (Auto) 0.6 0.0-1.0 10^3/uL Eosinophils # (Auto) 0.1 0.0-0.3 10^3/uL Basophils # (Auto) 0.0 0.0-0.1 10^3/uL Immature Granulocyte # (Auto) 0.0 0.0-0.1 10^3/uL Prothrombin Time 13.6 12.2-14.7 SEC INR Comment 1.0 0.8-1.4 Activated Partial Thromboplast Time 32 24-35 SEC Sodium Level 143 135-145 MMOL/L Potassium Level 3.6 3.6-5.0 MMOL/L Chloride Level 106 98-107 MMOL/L Carbon Dioxide Level 22 21-32 MMOL/L Anion Gap 15 H 5-14 MMOL/L Blood Urea Nitrogen 13 7-18 MG/DL Creatinine 0.96 0.60-1.30 MG/DL Estimat Glomerular Filtration Rate > 60 BUN/Creatinine Ratio 14 Glucose Level 94 70-105 MG/DL Calcium Level 9.0 8.5-10.1 MG/DL Corrected Calcium 8.5-10.1 MG/DL Magnesium Level 2.3 1.6-2.4 MG/DL Total Bilirubin 0.3 0.1-1.0 MG/DL Aspartate Amino Transf (AST/SGOT) 31 5-34 U/L Alanine Aminotransferase (ALT/SGPT) 18 0-55 U/L Alkaline Phosphatase 112 40-136 U/L Total Protein 7.8 6.4-8.2 GM/DL Albumin 4.7 H 3.2-4.5 GM/DL Acetaminophen Level < 10 L 10-30 UG/ML Serum Alcohol 381 *H <10 MG/DL My Orders Orders - OCHOA DILLON DO Ed Iv/Invasive Line Start (01/09/21 00:12) Acetaminophen (01/09/21 00:12) Alcohol (01/09/21 00:12) Cbc With Automated Diff (01/09/21 00:12) Comprehensive Metabolic Panel (01/09/21 00:12) Drug Screen Stat (Urine) (01/09/21 00:12) Magnesium (01/09/21 00:12) Protime With Inr (01/09/21 00:12) Partial Thromboplastin Time (01/09/21 00:12) Ua Culture If Indicated (01/09/21 00:12) Ed Iv/Invasive Line Start (01/09/21 00:12) Lactated Ringers (Lr 1000 Ml Iv Solution (01/09/21 00:15) Dipht,Pertuss(Acell),Tet Adult (Boostrix (01/09/21 00:45) Wound Dressing-Ed (01/09/21 00:38) Medications Given in ED Current Medications Medications Dose Ordered Sig/Kaiden Route Start Time Stop Time Status Last Admin Dose Admin Diphtheria/ Tetanus/Acell Pertussis 0.5 ml ONCE ONCE IM 01/09/21 00:45 01/09/21 00:46 DC 01/09/21 00:43 0.5 ML Lactated Ringer's 1,000 ml @ 0 mls/hr Q0M ONCE IV 01/09/21 00:15 01/09/21 00:16 DC 01/09/21 00:28 1,000 MLS/HR Vital Signs/I&O 01/09/21 00:15 Temp 36.2 Pulse 81 Resp 20 B/P (MAP) 113/92 (99) Pulse Ox 100 O2 Delivery Room Air Capillary Refill : Progress Note : Progress Note GIVEN IV FLUIDS PT SLEPT VERY SOUNDLY FOR REMAINDER OF ER STAY--ROUSES BRIEFLY TO MODERATE AMOUNT OF VERBAL AND TACTILE STIMULI O2 SATS 98% ON ROOM AIR AND NO SNORING OR DIFFICULTY BREATHING. NO DETERIORATION IN PT'S CONDITION DURING ER STAY Departure Communication (Admissions) 0107--SPOKE WITH DR. UNDERWOOD, HOSPITALIST FOR [facility]. ACCEPTS PT FOR ADMIT TO ICU 0108--REPORT GIVEN TO E-ICU PHYSICIAN. NO ADDITIONAL RECOMMENDATIONS AT THIS TIME Impression Primary Impression: Alcohol intoxication in active alcoholic Additional Impressions: Nsxkpfxyig-iczizzkmz-tgukifi (DPT) vaccination administered at current visit Abrasion, right lower leg, initial encounter Disposition: ADMITTED INPATIENT Condition: Stable Admissions Decision to Admit Reason: Admit from ER (General) Decision to Admit/Date: January 09, 2021 Time/Decision to Admit Time: 01:05 Departure-Patient Inst. Referrals: NO,LOCAL PHYSICIAN (PCP/Family) Primary Care Physician OCHOA DILLON DO January 09, 2021 00:38
[2021-01-09 00:39] LABS: GLUCOSE 94 MG/DL (70-105); TOTAL PROTEIN 7.8 GM/DL (6.4-8.2)
[2021-01-09 00:40] LABS: CARBON DIOXIDE 22 MMOL/L (21-32)
[2021-01-09 00:41] LABS: BILIRUBIN,TOTAL 0.3 MG/DL (0.1-1.0)
[2021-01-09 00:42] LABS: BACTERIA,URINE NEGATIVE /HPF
[2021-01-09 00:43] LABS: ALKALINE PHOSPHATASE 112 U/L (40-136); CREATININE SERUM 0.96 MG/DL (0.60-1.30); GFR ESTIMATED > 60
[2021-01-09 00:44] LABS: BUN/CREATININE RATIO 14
[2021-01-09 00:45] LABS: MAGNESIUM 2.3 MG/DL (1.6-2.4)
[2021-01-09] MEDS ORDERED: TETANUS,DIPTH,PERTUSS P/F (BOOSTRIX) 0.5 ML VIAL IM ONE (00:45)
[2021-01-09 00:46] LABS: ALANINE AMINOTRANSFERASE 18 U/L (0-55)
[2021-01-09 00:48] LABS: AMPHETAMINE SCREEN, URINE NEGATIVE (NEGATIVE); BARBITURATE SCREEN URINE NEGATIVE (NEGATIVE); BENZODIAZEPINES SCREEN URINE NEGATIVE (NEGATIVE); CANNABINOID SCREEN, URINE NEGATIVE (NEGATIVE); COCAINE SCREEN URINE NEGATIVE (NEGATIVE); METHADONE STAT NEGATIVE (NEGATIVE); METHAMPHETAMINE SCREEN URINE S NEGATIVE (NEGATIVE); OPIATE SCREEN URINE NEGATIVE (NEGATIVE); OXYCODONE STAT NEGATIVE (NEGATIVE); PROPOXYPHENE STAT NEGATIVE (NEGATIVE); TRICYCLIC ANTIDEPRESSANTS SCRE NEGATIVE (NEGATIVE)
[2021-01-09 00:49] LABS: ACETAMINOPHEN < 10 UG/ML (10-30)
[2021-01-09 00:53] LABS: PROTHROMBIN TIME PATIENT 13.6 SEC (12.2-14.7)
[2021-01-09 02:25] VITALS: BP 116/69
[2021-01-09] MEDS ORDERED: ONDANSETRON 4 MG (ZOFRAN) ORAL DISSOLVE TAB SL PRN (02:45)
[2021-01-09] MEDS ORDERED: ONDANSETRON 4 MG/2 ML (SDV) Z0FRAN IV PRN (02:45)
[2021-01-09] MEDS ORDERED: LORazepam INJ 2 MG/ML (ATIVAN) VIAL IV PRN (02:45)
[2021-01-09] MEDS ORDERED: LORazepam 1 MG (ATIVAN) TAB PO PRN (02:45)
[2021-01-09] MEDS ORDERED: ANTACID SUSP 30 ML UDC (MYLANTA) PO PRN (02:45)
[2021-01-09] MEDS ORDERED: D5 1/2 NS 1000 ML IV SOLUTION 1,000 ML IV PRN (02:45)
[2021-01-09] MEDS ORDERED: 1/2 NS IV SOLUTION 1,000 ML IV PRN (02:45)
[2021-01-09] MEDS ORDERED: LORazepam INJ 2 MG/ML (ATIVAN) VIAL IM/IV PRN (02:45)
[2021-01-09] MEDS ORDERED: SENNA W/DOCUSATE (SENOKOT S) TABLET PO PRN (02:45)
[2021-01-09] MEDS: D5 1/2 NS W/KCL 20 MEQ/L 1,000 ML IV SCH ×2 (05:29→09:20)
--- NOTE | 2021-01-09 06:16 | Short Stay Summary-Hospitalist ---
History of Present Illness HPI/Chief Complaint Chief complaint: Severe alcohol intoxication History of present illness: This is a 35-year-old white male who consumed and enormous amount of alcohol who became inebriated at home and became unresponsive and paramedics were called patient was brought to the ER found to be not requiring of intubation but required close monitoring due to such a high level of alcohol level in his system. Currently he is stable and doing very well and having no concerns and will discharge. Source: patient Date Seen 01/09/21 Time Seen by a Provider: 11:00 Attending Physician Tanisha Sinclair DO PCP [place] [facility] Referring Physician Date of Admission January 09, 2021 at 01:10 Home Medications & Allergies Home Medications Reviewed patient Home Medication Reconciliation performed by pharmacy medication reconciliations certified bench jeweler technician and/or nursing. Patients Allergies have been reviewed. Allergies Allergies Coded Allergies NKANo Known Allergies (Unverified Allergy, Mild, 10/15/09) Past Ebflvzs-Jwyhjt-Ttrvdt Hx Past Med/Social Hx: Reviewed Nursing Past Med/Soc Hx, Reviewed and Corrections made Patient Social History Marrital Status: Alcohol Use: Regular Use Alcohol Beverage of Choice: Vodka Recreational Drug Use: No Drug of Choice: THC Smoking Status: Current Everyday Smoker Type Used: Cigarettes Recent Foreign Travel: No Contact w/other who traveled: No Recent Hopitalizations: No Recent Infectious Disease Expo: No Immunizations Up To Date Tetanus Booster (TDap): Unknown Seasonal Allergies Seasonal Allergies: No Past Medical History Currently Using CPAP: No Currently Using BIPAP: No Skin/Integumentary: Psoriasis History of Blood Disorders: No Family History No Pertinent Family Hx SOCIAL HISTORY: -ETOH--DRINKS 1/2 TO 1 PINT OF VODKA EVERY DAY, SOMETIMES MORE THAN THAT -DRUGS--REGULAR MARIJUANA USE -SMOKES 1 PPD Review of Systems Constitutional: see HPI Physical Exam Physical Exam Vital Signs Vital Signs - First Documented 01/09/21 00:15 Temp 36.2 Pulse 81 Resp 20 B/P (MAP) 113/92 (99) Pulse Ox 100 O2 Delivery Room Air Capillary Refill : Less Than 3 Seconds Height, Weight, BMI Height: 5'11.00" Weight: 155lbs. oz. 70.194533bm; 20.68 BMI Method:Stated General Appearance: No Apparent Distress, WD/WN, Thin, Other (REEKS OF ETOH, DESPITE WEARING N95 PLUS SURGICAL MASK. PT IS AWAKE AND COOPERATIVE, WITH MODERATELY SLURRED SPEECH. ) HEENT: PERRL/EOMI, Normal ENT Inspection Neck: Normal Inspection, Non Tender Respiratory: Normal Breath Sounds, No Accessory Muscle Use, No Respiratory Distress Cardiovascular: Regular Rate, Rhythm, No Edema, No Murmur Gastrointestinal: Non Tender, Soft Back: Normal Inspection, No CVA Tenderness, No Vertebral Tenderness Extremity: Normal Capillary Refill, Normal Range of Motion, Non Tender, No Calf Tenderness, No Pedal Edema, Other (HAS SUPERFICIAL ABRASION TO LATERAL ASPECT OF RIGHT LOWER LEG--NO BLEEDING OR FOREIGN BODY) Neurologic/Psychiatric: Alert, Oriented x3, No Motor/Sensory Deficits, equipment oiler II- XII Norm as Tested, Other (DOES APPEAR INTOXICATED, BUT IS FAIR HISTORIAN ABOUT EVENTS OF THIS EVENING, ABLE TO FOLLOW COMMANDS, AND IS VERY COOPERATIVE AND RESPECTFUL AT THIS TIME. ) Skin: Normal Color, Warm/Dry, Other (ABRASION NOTED ABOVE. PT WITH EXTENSIVE PSORIATIC PLAQUES OVER ENTIRE BODY) Results Results/Procedures Labs Laboratory Tests 01/09/21 00:15 Patient resulted labs reviewed. Short Stay Diagnosis Discharge Diagnosis-Short Stay Admission Diagnosis Severe alcohol intoxication Final Discharge Diagnosis Severe alcohol intoxication Conclusion Plan Discharge home Diagnosis/Problems Diagnosis/Problems (1) Alcohol intoxication in active alcoholic Status: Acute TANISHA SINCLAIR DO January 09, 2021 06:16
[2021-01-09] MEDS ORDERED: IBUP-2473 PO (09:11)
[2021-01-09] MEDS ORDERED: THIAMINE INJECTION 100 MG, FOLIC ACID INJECTION 1 MG, MAGNESIUM SULFATE 2 GM, VITAMIN M... IV SCH ×5 (10:00)
== END 2021-01-09 11:34 | disposition home or self-care (01) ==
LOC: EDUNIT# 23:55 → ER 23:56 → ICU 01-09 01:10
PROVIDERS: ADMIT Internal Medicine; ATTEND Internal Medicine
DX: F10.229 Alcohol dependence with intoxication, unspecified (principal); S80.811A Abrasion, right lower leg, initial encounter; R40.4 Transient alteration of awareness; F17.210 Nicotine dependence, cigarettes, uncomplicated; Z79.891 Long term (current) use of opiate analgesic
CPT/HCPCS: 80053; 80306; 81000; 83735; 85025; 85610; 85730; 99285; G0480 ×2; 36415; 80320; 80329; 90715; G0378

== ENCOUNTER 2021-06-28 21:10 | Observation (INO) | payer MEDICAID ==
[~2021-06-28] VITALS: Ht 177.8 cm; Wt 68.0 kg
[~2021-06-28 21:10] MED LIST changes: +IBUP-2473 PO
[2021-06-28] MEDS ORDERED: LACTATED RINGERS 1,000 ML IV ONE (21:30)
--- NOTE | 2021-06-28 21:37 | ED General ---
General Chief Complaint: Substance Abuse Stated Complaint: SEIZURE/WITHDRAWAL Nursing Triage Note: brought in by [facility] s/p 15 sec seizure. no hx seizures. reports normally drinking 2 pints vodka dly. no etoh in 2 days. 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 PT IS NOT NAUSEATED NOW PT DENIES ACTUAL HEADACHE, BUT STATES HIS HEAD IS "PULSATING"/"THROBBING" AND HE FEELS LIGHTHEADED NO VISION CHANGES NO NECK OR BACK PAIN NO PARESTHESIAS OR MOTOR DEFICITS NO CHEST PAIN NO SHORTNESS OF BREATH PT DOES HAVE WOUND TO RIGHT ELBOW, WITH SLIGHT OOZING OF BLOOD PT HAS LONGSTANDING HISTORY OF ALCOHOL ABUSE--STATES HE HAS DRANK DAILY FOR 5-6 YEARS PT ADMITS TO DRINKING 2 PINTS OF VODKA EVERY DAY STATES HE INTENTIONALLY STOPPED DRINKING "COLD TURKEY" 2 DAYS AGO STATES HE WAS IN REHAB ABOUT 6 MONTHS AGO AT [facility]. STATES HE WENT 72 DAYS WITHOUT DRINKING AT THAT TIME, THEN WENT BACK TO HEAVY DRINKING DAILY, SINCE THEN HAS NEVER HAD A SEIZURE BEFORE STATES NORMALLY IF HE WOULD STOP DRINKING, HE WOULD GET THE SHAKES STATES YESTERDAY HE DIDN'T FEEL GOOD--LAID ON COUCH ALL DAY, WAS LIGHTHEADED, HIS HEAD WAS THROBBING LAST TETANUS WAS ABOUT 1 YEAR AGO PT HAS NOT HAD COVID-19 VACCINE OR HAD COVID-19 INFECTION PCP: [facility],. NO RECENT VISIT THERE Allergies and Home Medications Allergies Coded Allergies: NKANo Known Allergies (Unverified Allergy, Mild, 10/15/09) Patient Home Medication List Home Medication List Reviewed: Yes Discontinued Medications Ibuprofen (Ibuprofen) 200 Mg Tablet, 400-600 MG PO Q8H PRN for PAIN-MILD (1-4), (Reported) Discontinued Reason: No Longer Taking Entered as Reported by: RACQUEL HODGES on 01/09/21 0911 Last Action: Discontinued Review of Systems Review of Systems Constitutional: see HPI, diaphoresis, dizziness, malaise, weakness EENTM: no symptoms reported Respiratory: no symptoms reported Cardiovascular: no symptoms reported Gastrointestinal: see HPI, nausea, vomiting Genitourinary: no symptoms reported Musculoskeletal: see HPI Skin: see HPI Psychiatric/Neurological: See HPI, Headache, Seizure; Denies Tingling; Tremors Hematologic/Lymphatic: No Symptoms Reported Immunological/Allergic: no symptoms reported Past Kyuztzu-Riaavg-Vymnrf Hx Patient Social History Tobacco Use?: Yes Tobacco type used: Cigarettes Substance use?: Yes Substance type: Marijuana Alcohol Use?: Yes Alcohol type: Hard Liquor Alcohol Frequency: Daily Pt feels they are or have been: No Immunizations Up To Date Tetanus Booster (TDap): Unknown Seasonal Allergies Seasonal Allergies: No Past Medical History Surgery/Hospitalization HX: DENTAL EXTRACTIONS Surgeries: Yes (TEETH REMOVED, "FATTY TUMOR" REMOVED FROM RT CHIN/NECK) Respiratory: No Currently Using CPAP: No Currently Using BIPAP: No Cardiac: No Neurological: No Genitourinary: No Gastrointestinal: No Musculoskeletal: Yes ("BROKE HIS BACK" --NO SURGERY, PER PT ) Endocrine: No HEENT: Yes (MULTIPLE DENTAL EXTRACTIONS) Cancer: No Psychosocial: Yes (SUBSTANCE ABUSE) Integumentary: Yes Psoriasis Blood Disorders: No Family Medical History No Pertinent Family Hx SOCIAL HISTORY: -ETOH--DRINKS 2 PINTS OF VODKA EVERY DAY, SOMETIMES MORE THAN THAT -DRUGS--REGULAR MARIJUANA USE -SMOKES 1 PPD Physical Exam Vital Signs Vital Signs - First Documented 06/28/21 21:10 Temp 35.9 Pulse 102 Resp 16 B/P (MAP) 126/96 (106) Pulse Ox 94 O2 Delivery Room Air Capillary Refill : Less Than 3 Seconds Height, Weight, BMI Height: 5'11.00" Weight: 155lbs. oz. 70.186608ch; 20.00 BMI Method:Stated General Appearance: No Apparent Distress, WD/WN, Thin, Other (HAIR IS DAMP; DOES NOT APPEAR POST ICTAL AT THIS TIME) HEENT: PERRL/EOMI, Normal ENT Inspection, Pharynx Normal Neck: Full Range of Motion, Normal Inspection, Non Tender, Supple Respiratory: Normal Breath Sounds, No Accessory Muscle Use, No Respiratory Distress Cardiovascular: Regular Rate, Rhythm, No Murmur Gastrointestinal: Non Tender, Soft Back: Normal Inspection Extremity: No Pedal Edema, Other (HAS 1 CM LACERATION TO LEFT ELBOW. NO BLEEDING. DEEP STRUCTURES INTACT; HAS MILD DIFFUSE TENDERNESS TO DORSAL ASPECT OF ELBOW. NO SWELLING OR BRUISING NOTED. NO ACTIVE BLEEDING. 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 Skin: Normal Color, Warm/Dry, Tattoos/Piercings (EXTENSIVE TATTOOS), Other (PSORIATIC PLAQUES OVER MOST OF BODY) Focused Exam Lactate Level 06/28/21 01:00: Lactic Acid Level 0.76 Lactic Acid Level Laboratory Tests Test 06/28/21 01:00 Lactic Acid Level 0.76 MMOL/L (0.50-2.00) Procedures/Interventions Other Wound Location RIGHT ELBOW Wound Length (cm): 1 Wound's Depth, Shape: superficial, linear Wound Explored: clean Staple Repair: Stapler Skin Precise (#2 MANISH PLACED) Sterile Dressing Applied?: Yes Progress/Results/Core Measures Suspected Sepsis SIRS Temperature: Pulse: 102 Respiratory Rate: 16 Laboratory Tests 06/28/21 21:13: White Blood Count 6.9 Blood Pressure 126 /96 Mean: 106 06/28/21 01:00: Lactic Acid Level 0.76 Laboratory Tests 06/28/21 21:13: Creatinine 1.12, Platelet Count 84L, Total Bilirubin 1.4H Results/Orders Lab Results Laboratory Tests Test 06/28/21 01:00 06/28/21 21:13 06/28/21 21:27 06/28/21 21:30 Range/Units Lactic Acid Level 0.76 0.50-2.00 MMOL/L White Blood Count 6.9 4.3-11.0 10^3/uL Red Blood Count 5.04 4.30-5.52 10^6/uL Hemoglobin 15.8 13.3-17.7 g/dL Hematocrit 46 40-54 % Mean Corpuscular Volume 92 80-99 fL Mean Corpuscular Hemoglobin 31 25-34 pg Mean Corpuscular Hemoglobin Concent 34 32-36 g/dL Red Cell Distribution Width 14.7 H 10.0-14.5 % Platelet Count 84 L 130-400 10^3/uL Mean Platelet Volume 10.8 9.0-12.2 fL Immature Granulocyte % (Auto) 0 % Neutrophils (%) (Auto) 61 42-75 % Lymphocytes (%) (Auto) 26 12-44 % Monocytes (%) (Auto) 11 0-12 % Eosinophils (%) (Auto) 1 0-10 % Basophils (%) (Auto) 0 0-10 % Neutrophils # (Auto) 4.2 1.8-7.8 10^3/uL Lymphocytes # (Auto) 1.8 1.0-4.0 10^3/uL Monocytes # (Auto) 0.8 0.0-1.0 10^3/uL Eosinophils # (Auto) 0.1 0.0-0.3 10^3/uL Basophils # (Auto) 0.0 0.0-0.1 10^3/uL Immature Granulocyte # (Auto) 0.0 0.0-0.1 10^3/uL Percent Immature Platelet Fraction 6.3 0.0-7.6 % Sodium Level 136 135-145 MMOL/L Potassium Level 3.6 3.6-5.0 MMOL/L Chloride Level 98 98-107 MMOL/L Carbon Dioxide Level 13 L 21-32 MMOL/L Anion Gap 25 H 5-14 MMOL/L Blood Urea Nitrogen 9 7-18 MG/DL Creatinine 1.12 0.60-1.30 MG/DL Estimat Glomerular Filtration Rate 75 BUN/Creatinine Ratio 8 Glucose Level 121 H 70-105 MG/DL Calcium Level 10.2 H 8.5-10.1 MG/DL Corrected Calcium 8.5-10.1 MG/DL Magnesium Level 1.7 1.6-2.4 MG/DL Total Bilirubin 1.4 H 0.1-1.0 MG/DL Aspartate Amino Transf (AST/SGOT) 137 H 5-34 U/L Alanine Aminotransferase (ALT/SGPT) 83 H 0-55 U/L Alkaline Phosphatase 125 40-136 U/L Total Creatine Kinase 290 H 30-200 U/L Creatine Kinase MB 2.6 <6.6 NG/ML Myoglobin 247.0 H 10.0-92.0 NG/ML Total Protein 7.9 6.4-8.2 GM/DL Albumin 4.7 H 3.2-4.5 GM/DL Amylase Level 62 25-125 U/L Lipase 33 8-78 U/L Serum Alcohol < 10 <10 MG/DL SARS-CoV-2 RNA (RT-PCR) Not Detected Not Detecte Urine Color ORANGE Urine Clarity CLEAR Urine pH 6.5 5-9 Urine Specific [place] >=1.030 1.016-1.022 Urine Protein 2+ H NEGATIVE Urine Glucose (UA) NEGATIVE NEGATIVE Urine Ketones NEGATIVE NEGATIVE Urine Nitrite NEGATIVE NEGATIVE Urine Bilirubin 1+ H NEGATIVE Urine Urobilinogen 2.0 < = 1.0 MG/DL Urine Leukocyte Esterase NEGATIVE NEGATIVE Urine RBC (Auto) 1+ H NEGATIVE Urine RBC 0-2 /HPF Urine WBC 0-2 /HPF Urine Crystals PRESENT H /LPF Urine Amorphous Sediment FEW NISHANT URATES H /LPF Urine Bacteria TRACE /HPF Urine Casts NONE /LPF Urine Mucus LARGE H /LPF Urine Culture Indicated NO Urine Opiates Screen NEGATIVE NEGATIVE Urine Oxycodone Screen NEGATIVE NEGATIVE Urine Methadone Screen NEGATIVE NEGATIVE Urine Propoxyphene Screen NEGATIVE NEGATIVE Urine Barbiturates Screen NEGATIVE NEGATIVE Ur Tricyclic Antidepressants Screen NEGATIVE NEGATIVE Urine Phencyclidine Screen NEGATIVE NEGATIVE Urine Amphetamines Screen NEGATIVE NEGATIVE Urine Methamphetamines Screen NEGATIVE NEGATIVE Urine Benzodiazepines Screen NEGATIVE NEGATIVE Urine Cocaine Screen NEGATIVE NEGATIVE Urine Cannabinoids Screen POSITIVE H NEGATIVE My Orders Orders - OCHOA DILLON DO Ed Iv/Invasive Line Start (06/28/21 21:16) Ekg Tracing (06/28/21 21:16) Monitor-Rhythm Ecg Trace Only (06/28/21 21:16) Alcohol (06/28/21 21:16) Amylase (06/28/21 21:16) Cbc With Automated Diff (06/28/21 21:16) Comprehensive Metabolic Panel (06/28/21 21:16) Creatine Kinase (06/28/21 21:16) Creatine Kinase Mb (06/28/21 21:16) Drug Screen Stat (Urine) (06/28/21 21:16) Lipase (06/28/21 21:16) Magnesium (06/28/21 21:16) Ua Culture If Indicated (06/28/21 21:16) Myoglobin Serum (06/28/21 21:16) Ct Head Wo (06/28/21 21:16) Ed Iv/Invasive Line Start (06/28/21 21:16) Wound Dressing-Ed (06/28/21 21:16) Ed Iv/Invasive Line Start (06/28/21 21:16) Lactated Ringers (Lr 1000 Ml Iv Solution (06/28/21 21:30) Chest 1 View, Ap/Pa Only (06/28/21 21:22) Covid 19 Inhouse Test (06/28/21 21:22) Elbow, Right, 3 Views (06/28/21 21:29) Medications Given in ED Current Medications Medications Dose Ordered Sig/Kaiden Route Start Time Stop Time Status Last Admin Dose Admin Lactated Ringer's 1,000 ml @ 0 mls/hr Q0M ONCE IV 06/28/21 21:30 06/28/21 21:31 DC 06/28/21 21:26 0 MLS/HR Vital Signs/I&O 06/28/21 21:10 Temp 35.9 Pulse 102 Resp 16 B/P (MAP) 126/96 (106) Pulse Ox 94 O2 Delivery Room Air 06/29/21 00:00 Intake Total 300 ml Balance 300 ml Capillary Refill : Less Than 3 Seconds Blood Pressure Mean: 106 Progress Note : Progress Note GIVEN IV FLUIDS PT HAD NO COMPLAINTS DURING ER STAY PT CALM, COOPERATIVE AND RESPECTFUL THROUGHOUT ER STAY ECG Initial ECG Impression Date: Jun 28, 2021 Initial ECG Impression Time: 21:22 Initial ECG Rate: 93 Initial ECG Rhythm: Normal Sinus Initial ECG Impression: Normal Diagnostic Imaging Comments CT HEAD---PER RADIOLOGIST REPORT AT 2200 NO ACUTE PROCESS CXR--PER RADIOLOGIST REPORT AT 2200 NO ACUTE PROCESS RIGHT ELBOW XRAYS --PER RADIOLOGIST REPORT AT 2204 NO ACUTE BONY INJURY, MANISH IN SOFT TISSUES Reviewed: Reviewed by [facility] Departure Communication (Admissions) 2153--REPORT TO E-ICU PHYSICIAN, NO ADDITIONAL RECOMMENDATIONS AT THIS TIME 2204--SPOKE WITH DR. VASQUEZ, HOSPITALIST FOR [facility], ACCEPTS PT FOR ADMIT. NO ADDITIONAL RECOMMENDATIONS AT THIS TIME Impression Primary Impression: NEW ONSET ALCOHOL WITHDRAWL SEIZURE Additional Impressions: Alcoholism Laceration of right elbow Contusion of right elbow Alcohol withdrawal seizure Elevated liver enzymes Marijuana use Disposition: ADMITTED INPATIENT Condition: Stable Admissions Decision to Admit Reason: Admit from ER (General) Decision to Admit/Date: Jun 28, 2021 Time/Decision to Admit Time: 22:00 Departure-Patient Inst. Referrals: [facility] (PCP/Family) Primary Care Physician Patient Instructions: ALCOHOL AND SUBSTANCE ABUSE OCHOA DILLON DO Jun 28, 2021 21:37
[2021-06-28 21:38] LABS: BASOPHILS % (AUTO) 0 % (0-10)
[2021-06-28 21:39] LABS: CLARITY,URINE CLEAR; COLOR,URINE ORANGE; GLUCOSE, URINE (UA) NEGATIVE (NEGATIVE); KETONES,URINE NEGATIVE (NEGATIVE); LEUKOCYTE ESTERASE ,URINE NEGATIVE (NEGATIVE); NITRITE,URINE NEGATIVE (NEGATIVE); PH,URINE 6.5 (5-9); PROTEIN,URINE 2+ (NEGATIVE)
[2021-06-28 21:40] LABS: ALBUMIN 4.7 GM/DL (3.2-4.5); CHLORIDE 98 MMOL/L (98-107); EOSINOPHILS # (AUTO) 0.1 10^3/uL (0.0-0.3); EOSINOPHILS % (AUTO) 1 % (0-10); HEMATOCRIT 46 % (40-54); HEMOGLOBIN 15.8 g/dL (13.3-17.7); LYMPHOCYTES # (AUTO) 1.8 10^3/uL (1.0-4.0); LYMPHOCYTES % (AUTO) 26 % (12-44); MEAN CORPUSCULAR HEMOGLOBIN 31 pg (25-34); MEAN CORPUSCULAR HGB CONC 34 g/dL (32-36); MEAN CORPUSCULAR VOLUME 92 fL (80-99); MEAN PLATELET VOLUME 10.8 fL (9.0-12.2); MONOCYTES # (AUTO) 0.8 10^3/uL (0.0-1.0); MONOCYTES % (AUTO) 11 % (0-12); NEUTROPHILS # (AUTO) 4.2 10^3/uL (1.8-7.8); NEUTROPHILS % (AUTO) 61 % (42-75); PLATELET COUNT 84 10^3/uL (130-400); POTASSIUM 3.6 MMOL/L (3.6-5.0); SODIUM 136 MMOL/L (135-145); WHITE BLOOD COUNT 6.9 10^3/uL (4.3-11.0)
[2021-06-28 21:41] LABS: AMYLASE 62 U/L (25-125); CALCIUM 10.2 MG/DL (8.5-10.1)
[2021-06-28 21:42] LABS: GLUCOSE 121 MG/DL (70-105); TOTAL PROTEIN 7.9 GM/DL (6.4-8.2)
[2021-06-28 21:43] LABS: CARBON DIOXIDE 13 MMOL/L (21-32)
[2021-06-28 21:44] LABS: BILIRUBIN,TOTAL 1.4 MG/DL (0.1-1.0)
[2021-06-28 21:46] LABS: ALKALINE PHOSPHATASE 125 U/L (40-136); CREATININE SERUM 1.12 MG/DL (0.60-1.30); GFR ESTIMATED 75
[2021-06-28 21:47] LABS: BUN/CREATININE RATIO 8
[2021-06-28 21:48] LABS: MAGNESIUM 1.7 MG/DL (1.6-2.4)
[2021-06-28 21:49] LABS: BILIRUBIN,URINE 1+ (NEGATIVE)
[2021-06-28 21:49] LABS: ALANINE AMINOTRANSFERASE 83 U/L (0-55)
[2021-06-28 21:50] LABS: CREATINE KINASE 290 U/L (30-200); LIPASE 33 U/L (8-78)
[2021-06-28 21:52] LABS: AMORPHOUS SEDIMENT,UR FEW AMOR URATES /LPF; BACTERIA,URINE TRACE /HPF; RBC,URINE 0-2 /HPF; WBC,URINE 0-2 /HPF
--- NOTE | 2021-06-28 21:56 | Diagnostic Imaging Report ---
PROCEDURE: CT head without contrast. TECHNIQUE: Multiple contiguous axial images were obtained through the brain without the use of intravenous contrast. Auto Exposure Controls were utilized during the CT exam to meet ALARA standards for radiation dose reduction. INDICATION: New onset seizure. COMPARISON: 10/25/2020. FINDINGS: There is no CT evidence of an acute intracranial abnormality. There is no evidence of intracranial hemorrhage. There is no mass effect or shift. There is no hydrocephalus. The basilar cisterns are patent. There is no abnormal extra-axial fluid collection. Hernandez-white matter differentiation appears maintained. There is no abnormal hypodensity evident within the basal ganglia or within the posterior fossa. The mastoid air cells are clear. The visualized paranasal sinuses clear. Orbital contents unremarkable. No calvarial abnormality is demonstrated. IMPRESSION: 1. No CT evidence of an acute intracranial abnormality. Dictated by: Dictated on workstation # [id number]
[2021-06-28 21:57] LABS: CREATINE KINASE MB 2.6 NG/ML (<6.6)
--- NOTE | 2021-06-28 21:59 | Diagnostic Imaging Report ---
INDICATION: Seizure. COMPARISON: None available. FINDINGS: The lungs appear clear without focal infiltrate or consolidation. There are no findings of an effusion. There is no evidence of a pneumothorax. Heart size and mediastinal contours appear appropriate. Pulmonary vascularity appears within normal limits. There is no acute or suspicious osseous abnormality demonstrated. IMPRESSION: No radiographic evidence of an acute cardiopulmonary process. Dictated by: Dictated on workstation # [id number]
--- NOTE | 2021-06-28 22:05 | Diagnostic Imaging Report ---
INDICATION: Elbow pain. Seizure. FINDINGS: There are skin shabana overlying the olecranon. Elbow alignment appears appropriate with a normal anterior humeral and radiocapitellar line. There is no elevation of the fat pads to suggest the presence of a joint effusion. No acute fracture is evident. IMPRESSION: 1. Normal elbow alignment without evidence of fracture or joint effusion. 2. Skin shabana and soft tissue swelling overlying the olecranon. Dictated by: Dictated on workstation # [id number]
[2021-06-28 22:07] LABS: AMPHETAMINE SCREEN, URINE NEGATIVE (NEGATIVE); BARBITURATE SCREEN URINE NEGATIVE (NEGATIVE); BENZODIAZEPINES SCREEN URINE NEGATIVE (NEGATIVE); CANNABINOID SCREEN, URINE POSITIVE (NEGATIVE); COCAINE SCREEN URINE NEGATIVE (NEGATIVE); METHADONE STAT NEGATIVE (NEGATIVE); METHAMPHETAMINE SCREEN URINE S NEGATIVE (NEGATIVE); OPIATE SCREEN URINE NEGATIVE (NEGATIVE); OXYCODONE STAT NEGATIVE (NEGATIVE); PROPOXYPHENE STAT NEGATIVE (NEGATIVE); TRICYCLIC ANTIDEPRESSANTS SCRE NEGATIVE (NEGATIVE)
--- NOTE | 2021-06-28 22:57 | Tele-ICU Consult ---
History of Present Illness History of Present Illness Date Seen by Provider: Jun 28, 2021 Time Seen by Provider: 22:53 Date of Admission 36 y old man with hx of eto habuse, presented with etoh related seizures/ withdrawal. Pt complained of headaches/ lightheadedness. ct head negative Allergies and Home Medications Allergies Coded Allergies: NKANo Known Allergies (Unverified Allergy, Mild, 10/15/09) Past Medical/Social/Family Hx Patient Social History Tobacco Use?: Yes Tobacco type used: Cigarettes Substance use?: Yes Substance type: Marijuana Alcohol Use?: Yes Alcohol type: Hard Liquor Alcohol Frequency: Daily Pt stated abuse/neglect: No Immunizations Up To Date Tetanus Booster (TDap): Less Than 5 Years Current Status Advance Directives: No Primary Language: Kiswahili Preferred Spoken Language: Kiswahili Implanted or Applied Medical D: None Family Medical History Family Hx: SOCIAL HISTORY: -ETOH--DRINKS 2 PINTS OF VODKA EVERY DAY, SOMETIMES MORE THAN THAT -DRUGS--REGULAR MARIJUANA USE -SMOKES 1 PPD Review of Systems Constitutional: see HPI Sepsis Event Evaluation Height, Weight, BMI Height: 5'11.00" Weight: 155lbs. oz. 70.399198eb; 20.00 BMI Method:Stated Exam Exam Patient acknowledged, consented, and participated in this virtual visit which was conducted using real time audio/video Vital Signs Date Time Temp Pulse Resp B/P (MAP) Pulse Ox O2 Delivery O2 Flow Rate FiO2 06/28/21 21:10 35.9 102 16 126/96 (106) 94 Room Air Height & Weight Height: 5'11.00" Weight: 155lbs. oz. 70.997713dj; 20.00 BMI Method:Stated General Appearance: No Apparent Distress, WD/WN, Thin, Other (HAIR IS DAMP; DOES NOT APPEAR POST ICTAL AT THIS TIME) HEENT: PERRL/EOMI, Normal ENT Inspection, Pharynx Normal Neck: Full Range of Motion, Normal Inspection, Non Tender, Supple Respiratory: Normal Breath Sounds, No Accessory Muscle Use, No Respiratory Distress Cardiovascular: Regular Rate, Rhythm, No Murmur Capillary Refill: Less Than 3 Seconds Extremity: No Pedal Edema, Other (HAS 1 CM LACERATION TO LEFT ELBOW. NO BLEEDING. DEEP STRUCTURES INTACT; HAS MILD DIFFUSE TENDERNESS TO DORSAL ASPECT OF ELBOW. NO SWELLING OR BRUISING NOTED. NO ACTIVE BLEEDING. 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 labs/ diagnostics/ notes reviewed; dw DIANE Spears MD Jun 28, 2021 22:57
[2021-06-28] MEDS ORDERED: ENOXAPARIN 40 MG/0.4 ML (LOVENOX) SYR SC SCH (23:00)
[2021-06-28 23:25] VITALS: BP 120/91
[2021-06-29] MEDS: D5 LR IV SOLUTION 1,000 ML IV SCH ×2 (00:10→06:44)
[2021-06-29] MEDS ORDERED: LORazepam INJ 2 MG/ML (ATIVAN) VIAL IV PRN (00:30)
[2021-06-29] MEDS ORDERED: ONDANSETRON 4 MG/2 ML (SDV) Z0FRAN IV PRN (00:30)
[2021-06-29] MEDS ORDERED: LORazepam 1 MG (ATIVAN) TAB PO PRN (00:30)
[2021-06-29] MEDS ORDERED: 1/2 NS IV SOLUTION 1,000 ML IV PRN (00:30)
[2021-06-29] MEDS ORDERED: SENNA W/DOCUSATE (SENOKOT S) TABLET PO PRN (00:30)
[2021-06-29] MEDS ORDERED: D5 1/2 NS 1000 ML IV SOLUTION 1,000 ML IV PRN (00:30)
[2021-06-29] MEDS ORDERED: ONDANSETRON 4 MG (ZOFRAN) ORAL DISSOLVE TAB SL PRN (00:30)
[2021-06-29] MEDS ORDERED: LORazepam INJ 2 MG/ML (ATIVAN) VIAL IM/IV PRN (00:30)
[2021-06-29] MEDS ORDERED: ANTACID SUSP 30 ML UDC (MYLANTA) PO PRN (00:30)
[2021-06-29] MEDS: ACETAMINOPHEN 500 MG TAB (TYLENOL) PO PRN ×2 (01:47→07:52)
[2021-06-29 06:08] LABS: MEAN CORPUSCULAR VOLUME 92 fL (80-99)
[2021-06-29 06:09] LABS: BASOPHILS % (AUTO) 1 % (0-10); EOSINOPHILS # (AUTO) 0.1 10^3/uL (0.0-0.3); EOSINOPHILS % (AUTO) 2 % (0-10); HEMATOCRIT 39 % (40-54); HEMOGLOBIN 13.8 g/dL (13.3-17.7); LYMPHOCYTES # (AUTO) 0.6 10^3/uL (1.0-4.0); LYMPHOCYTES % (AUTO) 16 % (12-44); MEAN CORPUSCULAR HEMOGLOBIN 32 pg (25-34); MEAN CORPUSCULAR HGB CONC 35 g/dL (32-36); MEAN PLATELET VOLUME 10.8 fL (9.0-12.2); MONOCYTES # (AUTO) 0.3 10^3/uL (0.0-1.0); MONOCYTES % (AUTO) 8 % (0-12); NEUTROPHILS # (AUTO) 2.7 10^3/uL (1.8-7.8); NEUTROPHILS % (AUTO) 74 % (42-75); PLATELET COUNT 43 10^3/uL (130-400); WHITE BLOOD COUNT 3.7 10^3/uL (4.3-11.0)
[2021-06-29 06:23] LABS: POTASSIUM 3.1 MMOL/L (3.6-5.0)
[2021-06-29 06:24] LABS: CALCIUM 9.1 MG/DL (8.5-10.1)
[2021-06-29 06:29] LABS: CREATININE SERUM 0.79 MG/DL (0.60-1.30); PHOSPHORUS 2.4 MG/DL (2.3-4.7)
[2021-06-29 06:31] LABS: MAGNESIUM 1.7 MG/DL (1.6-2.4)
[2021-06-29] MEDS ORDERED: MAGNESIUM 1 GM/100 ML IVPB 200 ML IV ONE (06:41)
[2021-06-29] MEDS ORDERED: KCL 20 MEQ TAB (K-DUR) PO ONE ×3 (06:41→09:00)
[2021-06-29] MEDS: MAGNESIUM 1 GM/100 ML IVPB 100 ML IV SCH ×2 (06:43→07:46)
[2021-06-29] MEDS ORDERED: MULTIVIT W/MINERALS TAB (THERAGRAN M) PO SCH (07:00)
[2021-06-29] MEDS ORDERED: THIAMINE 100 MG (VITAMIN B-1) TAB PO SCH (07:00)
--- NOTE | 2021-06-29 08:04 | Tele-ICU Progress Note ---
Subjective Date Seen by a Provider: Jun 29, 2021 Time Seen by a Provider: 13:31 Subjective/Events-last exam 35 yo M being treated for EtOH withdrawal, Not on IV Precedex, thiamine, folic acid, Does not need IV Atvian, CIWA score 0 anion gap has resolved, Mg 1.7, Sepsis Event Evaluation Height, Weight, BMI Height: 5'11.00" Weight: 155lbs. oz. 70.538102np; 21.51 BMI Method:Stated Focused Exam Lactate Level 06/28/21 01:00: Lactic Acid Level 0.76 Exam Exam Patient acknowledged, consented, and participated in this virtual visit which was conducted using real time audio/video Vital Signs Date Time Temp Pulse Resp B/P (MAP) Pulse Ox O2 Delivery O2 Flow Rate FiO2 06/29/21 07:30 36.5 06/29/21 06:00 76 16 119/91 97 Room Air 06/29/21 05:00 69 11 112/87 95 Room Air 06/29/21 04:00 64 15 117/90 96 Room Air 06/29/21 04:00 36.9 Room Air 06/29/21 03:15 99 Room Air 06/29/21 03:00 63 14 117/109 98 Room Air 06/29/21 02:00 64 15 140/80 96 Room Air 06/29/21 01:45 65 16 137/74 96 Room Air 06/29/21 01:30 70 8 131/91 95 Room Air 06/29/21 01:15 68 12 124/84 98 Room Air 06/29/21 01:00 80 10 130/89 99 Room Air 06/29/21 01:00 69 06/29/21 00:45 73 10 123/89 99 Room Air 06/29/21 00:30 72 13 126/94 98 Room Air 06/29/21 00:21 98 Room Air 06/29/21 00:17 36.7 76 20 126/94 98 Room Air 06/29/21 00:07 78 06/28/21 23:25 36.3 71 16 120/91 98 Room Air 06/28/21 21:10 35.9 102 16 126/96 (106) 94 Room Air I & O 06/29/21 07:00 Intake Total 3000 ml Output Total 1000 ml Balance 2000 ml Height & Weight Height: 5'11.00" Weight: 155lbs. oz. 70.123518fj; 21.51 BMI Method:Stated General Appearance: No Apparent Distress, WD/WN, Thin, Other (HAIR IS DAMP; DOES NOT APPEAR POST ICTAL AT THIS TIME) HEENT: PERRL/EOMI, Normal ENT Inspection, Pharynx Normal Neck: Full Range of Motion, Normal Inspection, Non Tender, Supple Respiratory: Lungs Clear, Normal Breath Sounds, No Accessory Muscle Use, No Respiratory Distress Cardiovascular: Regular Rate, Rhythm, No Edema, No Murmur Capillary Refill: Less Than 3 Seconds Extremity: No Pedal Edema, Other (HAS 1 CM LACERATION TO LEFT ELBOW. NO BLEEDING. DEEP STRUCTURES INTACT; HAS MILD DIFFUSE TENDERNESS TO DORSAL ASPECT OF ELBOW. NO SWELLING OR BRUISING NOTED. NO ACTIVE BLEEDING. 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
[2021-06-29] MEDS ORDERED: FOLIC ACID 1 MG TAB PO SCH (09:00)
[2021-06-29] MEDS ORDERED: IBUP-2473 PO (10:11)
--- NOTE | 2021-06-29 13:18 | Short Stay Summary ---
HPI History of Present Illness: 35 yo M with known alcholism. Brought in after witnessed seizure at home. This AM patient states that he is feeling much better. He denies ever having a seizure in the past when coming off alcohol. Patient has been a heavy drinker for about 5-6 years. Earlier this year he went thru inpatient rehab. States that he was drinking 2 pints of liquor a day. He has been apart of the outpatient program at [facility] but had stopped going for a few months. Denies any chest pain, shortness of breath. States that his left elbow is sore where he has the abrasion. Source: patient Exam Limitations: no limitations Date seen by provider: Jun 29, 2021 Time Seen by Provider: 12:20 Attending Physician Geeta Wallace MD PCP [facility] Date of Admission Jun 28, 2021 at 22:00 Home Medications Home Medications Reviewed patient Home Medication Reconciliation performed by pharmacy medication reconciliations hvac field service technician and/or nursing. Patients Allergies have been reviewed. Allergies Coded Allergies: NKANo Known Allergies (Unverified Allergy, Mild, 10/15/09) WUA-Pkiztr-Kvufmb Hx Patient Social History Living Status: Lives at home with and kids Employed/Student: unemployed Drug of Choice: THC Smoking Status: Current Everyday Smoker Recent Hopitalizations: No Alcohol Use?: Yes Substance type: Marijuana Tobacco type used: Cigarettes Have you traveled recently?: No Immunizations Up To Date Tetanus Booster (TDap): Unknown Past Medical History Alcholism Family Medical History Significant Family History: No Pertinent Family Hx Other Significan Family Hx: SOCIAL HISTORY: -ETOH--DRINKS 2 PINTS OF VODKA EVERY DAY, SOMETIMES MORE THAN THAT -DRUGS--REGULAR MARIJUANA USE -SMOKES 1 PPD Review of Systems ([facility]) Constitutional: no symptoms reported; No chills, No dizziness, No malaise EENTM: no symptoms reported Respiratory: no symptoms reported; No cough, No dyspnea on exertion, No short of breath Cardiovascular: no symptoms reported; No chest pain, No edema, No palpitations Gastrointestinal: no symptoms reported; No abdominal pain, No constipation, No diarrhea, No nausea, No vomiting Genitourinary: no symptoms reported; No dysuria, No frequency, No hematuria Musculoskeletal: joint pain (Right elbow and left shoulder) Skin: no symptoms reported Psychiatric/Neurological: Anxiety, Depressed Reviewed Test Results Reviewed Test Results Lab Laboratory Tests Test 06/28/21 21:13 06/28/21 21:27 06/28/21 21:30 06/29/21 05:36 Range/Units White Blood Count 6.9 3.7 L 4.3-11.0 10^3/uL Red Blood Count 5.04 4.26 L 4.30-5.52 10^6/uL Hemoglobin 15.8 13.8 13.3-17.7 g/dL Hematocrit 46 39 L 40-54 % Mean Corpuscular Volume 92 92 80-99 fL Mean Corpuscular Hemoglobin 31 32 25-34 pg Mean Corpuscular Hemoglobin Concent 34 35 32-36 g/dL Red Cell Distribution Width 14.7 H 14.6 H 10.0-14.5 % Platelet Count 84 L 43 L 130-400 10^3/uL Mean Platelet Volume 10.8 10.8 9.0-12.2 fL Immature Granulocyte % (Auto) 0 0 % Neutrophils (%) (Auto) 61 74 42-75 % Lymphocytes (%) (Auto) 26 16 12-44 % Monocytes (%) (Auto) 11 8 0-12 % Eosinophils (%) (Auto) 1 2 0-10 % Basophils (%) (Auto) 0 1 0-10 % Neutrophils # (Auto) 4.2 2.7 1.8-7.8 10^3/uL Lymphocytes # (Auto) 1.8 0.6 L 1.0-4.0 10^3/uL Monocytes # (Auto) 0.8 0.3 0.0-1.0 10^3/uL Eosinophils # (Auto) 0.1 0.1 0.0-0.3 10^3/uL Basophils # (Auto) 0.0 0.0 0.0-0.1 10^3/uL Immature Granulocyte # (Auto) 0.0 0.0 0.0-0.1 10^3/uL Percent Immature Platelet Fraction 6.3 5.8 0.0-7.6 % Sodium Level 136 136 135-145 MMOL/L Potassium Level 3.6 3.1 L 3.6-5.0 MMOL/L Chloride Level 98 103 98-107 MMOL/L Carbon Dioxide Level 13 L 23 21-32 MMOL/L Anion Gap 25 H 10 5-14 MMOL/L Blood Urea Nitrogen 9 6 L 7-18 MG/DL Creatinine 1.12 0.79 0.60-1.30 MG/DL Estimat Glomerular Filtration Rate 75 112 BUN/Creatinine Ratio 8 8 Glucose Level 121 H 100 70-105 MG/DL Calcium Level 10.2 H 9.1 8.5-10.1 MG/DL Corrected Calcium 8.5-10.1 MG/DL Magnesium Level 1.7 1.7 1.6-2.4 MG/DL Total Bilirubin 1.4 H 0.1-1.0 MG/DL Aspartate Amino Transf (AST/SGOT) 137 H 5-34 U/L Alanine Aminotransferase (ALT/SGPT) 83 H 0-55 U/L Alkaline Phosphatase 125 40-136 U/L Total Creatine Kinase 290 H 30-200 U/L Creatine Kinase MB 2.6 <6.6 NG/ML Myoglobin 247.0 H 10.0-92.0 NG/ML Total Protein 7.9 6.4-8.2 GM/DL Albumin 4.7 H 3.2-4.5 GM/DL Amylase Level 62 25-125 U/L Lipase 33 8-78 U/L Serum Alcohol < 10 <10 MG/DL SARS-CoV-2 RNA (RT-PCR) Not Detected Not Detecte Urine Color ORANGE Urine Clarity CLEAR Urine pH 6.5 5-9 Urine Specific Clifford >=1.030 1.016-1.022 Urine Protein 2+ H NEGATIVE Urine Glucose (UA) NEGATIVE NEGATIVE Urine Ketones NEGATIVE NEGATIVE Urine Nitrite NEGATIVE NEGATIVE Urine Bilirubin 1+ H NEGATIVE Urine Urobilinogen 2.0 < = 1.0 MG/DL Urine Leukocyte Esterase NEGATIVE NEGATIVE Urine RBC (Auto) 1+ H NEGATIVE Urine RBC 0-2 /HPF Urine WBC 0-2 /HPF Urine Crystals PRESENT H /LPF Urine Amorphous Sediment FEW NISHANT URATES H /LPF Urine Bacteria TRACE /HPF Urine Casts NONE /LPF Urine Mucus LARGE H /LPF Urine Culture Indicated NO Urine Opiates Screen NEGATIVE NEGATIVE Urine Oxycodone Screen NEGATIVE NEGATIVE Urine Methadone Screen NEGATIVE NEGATIVE Urine Propoxyphene Screen NEGATIVE NEGATIVE Urine Barbiturates Screen NEGATIVE NEGATIVE Ur Tricyclic Antidepressants Screen NEGATIVE NEGATIVE Urine Phencyclidine Screen NEGATIVE NEGATIVE Urine Amphetamines Screen NEGATIVE NEGATIVE Urine Methamphetamines Screen NEGATIVE NEGATIVE Urine Benzodiazepines Screen NEGATIVE NEGATIVE Urine Cocaine Screen NEGATIVE NEGATIVE Urine Cannabinoids Screen POSITIVE H NEGATIVE Phosphorus Level 2.4 2.3-4.7 MG/DL Physical Exam-(CHC) Physical Exam Vital Signs VS - Last 72 Hours, by Label 06/28/21 06/28/21 06/29/21 06/29/21 21:10 23:25 00:07 00:17 Temp 35.9 36.3 36.7 Pulse 102 71 78 76 Resp 16 16 20 B/P (MAP) 126/96 (106) 120/91 126/94 Pulse Ox 94 98 98 O2 Delivery Room Air Room Air Room Air 06/29/21 06/29/21 06/29/21 06/29/21 00:21 00:30 00:45 01:00 Pulse 72 73 69 Resp 13 10 B/P (MAP) 126/94 123/89 Pulse Ox 98 98 99 O2 Delivery Room Air Room Air Room Air 06/29/21 06/29/21 06/29/21 06/29/21 01:00 01:15 01:30 01:45 Pulse 80 68 70 65 Resp 10 12 8 16 B/P (MAP) 130/89 124/84 131/91 137/74 Pulse Ox 99 98 95 96 O2 Delivery Room Air Room Air Room Air Room Air 06/29/21 06/29/21 06/29/21 06/29/21 02:00 03:00 03:15 04:00 Temp 36.9 Pulse 64 63 Resp 15 14 B/P (MAP) 140/80 117/109 Pulse Ox 96 98 99 O2 Delivery Room Air Room Air Room Air Room Air 06/29/21 06/29/21 06/29/21 06/29/21 04:00 05:00 06:00 07:00 Pulse 64 69 76 61 Resp 15 11 16 13 B/P (MAP) 117/90 112/87 119/91 116/46 Pulse Ox 96 95 97 97 O2 Delivery Room Air Room Air Room Air Room Air 06/29/21 06/29/21 06/29/21 06/29/21 07:00 07:30 08:00 08:32 Temp 36.5 Pulse 61 62 Resp 14 B/P (MAP) 118/91 Pulse Ox 96 99 O2 Delivery Room Air Room Air 06/29/21 06/29/21 06/29/21 06/29/21 09:00 10:00 11:00 11:30 Temp 36.6 Pulse 62 98 79 Resp 11 13 15 B/P (MAP) 116/93 130/89 111/84 Pulse Ox 96 97 97 O2 Delivery Room Air Room Air Room Air 06/29/21 12:33 Pulse Ox 99 O2 Delivery Room Air Capillary Refill : Less Than 3 Seconds General Appearance: WD/WN, no apparent distress, thin HEENT: PERRL/EOMI Neck: non-tender, full range of motion, supple Respiratory: chest non-tender, lungs clear, normal breath sounds, no respiratory distress, no accessory muscle use Cardiovascular: normal peripheral pulses, regular rate, rhythm, no edema, no murmur Gastrointestinal: normal bowel sounds, non tender, soft Back: no CVA tenderness Extremities: no pedal edema, no calf tenderness, normal capillary refill, other (Abrasion on right elbow with closure) Neurologic/Psychiatric: senior manager II-XII nml as tested, no motor/sensory deficits, alert, normal mood/affect, oriented x 3 Lymphatic: no adenopathy Short Stay Diagnosis Discharge Diagnosis-Short Stay Admission Diagnosis EtOH withdraw Seizure EtOH Dependence Abrasion of Right elbow Final Discharge Diagnosis Same as above Conclusion Plan 35 yo with new EtOH withdraw seizure EtOH Withdraw Seizure - Continue Folic Acid and Thiamine supplementation - Patient established with outpatient treatment - CIWS 0, patient would like to go home Abrasion of right elbow - Closure C/D/I Plan to d/c home today with close f.u with [facility] outpatient treatment services Was the Problem List Reviewed?: Yes Assessment/Plan Assessment/Plan Admission Status: Observation GEETA WALLACE MD Jun 29, 2021 13:18
[2021-06-29] MEDS ORDERED: THIA100T80 PO (13:19)
[2021-06-29] MEDS ORDERED: FOLI1TAB33 PO (13:19)
--- NOTE | 2021-06-29 13:20 | Discharge Summary ---
Discharge [facility] Reconcile Patient Problems Problems Reviewed?: Yes Discharge Medications New, Converted or Re-Newed RX: Transmitted to Pharmacy New Medications: Folic Acid (Folic Acid) 1 Mg Tablet 1 MG PO DAILY, #10 TAB Thiamine HCl (Vitamin B-1) 100 Mg Tablet 100 MG PO DAILY@0700, #10 TAB Discontinued Medications: Ibuprofen (Ibuprofen) 200 Mg Tablet 400 MG PO Q8H PRN for PAIN-MILD (1-4), TAB Patient Instructions Goal/Follow Up Appt: F.u with Dariusz Iniguez with the [facility] outpatient addiction treatment program, patient is already established Needs to establish care with medical provider Activity & Diet Discharge Diet: No Restrictions Activity as Tolerated: Yes CHAKA CALVILLO MD Jun 29, 2021 13:20
[2021-06-30] MEDS ORDERED: POTASSIUM CL 10MEQ/50ML IVPB 50 ML IV SCH (06:00)
[2021-06-30] MEDS ORDERED: KCL 20 MEQ TAB (K-DUR) PO SCH (06:00)
[2021-06-30] MEDS ORDERED: MAGNESIUM 1 GM/100 ML IVPB 100 ML IV SCH (06:00)
== END 2021-06-29 14:03 | disposition other institution (70) ==
LOC: EDUNIT# 21:10 → ER 21:10 → ICU 21:11 → UNDOADMIN 22:00 → UNDODISIN 06-29 13:50
PROVIDERS: ADMIT Internal Medicine; ATTEND Internal Medicine
DX: R56.9 Unspecified convulsions (principal); S50.311A Abrasion of right elbow, initial encounter; F10.20 Alcohol dependence, uncomplicated; F17.210 Nicotine dependence, cigarettes, uncomplicated; R79.89 Other specified abnormal findings of blood chemistry
CPT/HCPCS: 12001; 70450; 71045; 73080; 80048; 80053; 80306; 81000; 82150; 82550; 82553; 83605; 83690; 83735 ×2; 83874; 84100; 85025 ×2; 87081; 87636; 93005; 93041; 96360; 99285; G0378; G0480; 36415; 80320

== ENCOUNTER 2021-07-01 15:56 | Emergency (ER) | payer MEDICAID ==
[~2021-07-01] VITALS: Ht 170 cm; Wt 77.0 kg
[~2021-07-01 15:56] MED LIST changes: +FOLI1TAB33 PO; +THIA100T80 PO
[2021-07-01 16:31] LABS: BASOPHILS % (AUTO) 1 % (0-10); EOSINOPHILS # (AUTO) 0.1 10^3/uL (0.0-0.3); EOSINOPHILS % (AUTO) 2 % (0-10); HEMATOCRIT 40 % (40-54); LYMPHOCYTES # (AUTO) 0.7 10^3/uL (1.0-4.0); LYMPHOCYTES % (AUTO) 19 % (12-44); MEAN CORPUSCULAR HEMOGLOBIN 32 pg (25-34); MEAN CORPUSCULAR HGB CONC 35 g/dL (32-36); MEAN CORPUSCULAR VOLUME 92 fL (80-99); MEAN PLATELET VOLUME 10.1 fL (9.0-12.2); MONOCYTES # (AUTO) 0.5 10^3/uL (0.0-1.0); MONOCYTES % (AUTO) 14 % (0-12); NEUTROPHILS # (AUTO) 2.3 10^3/uL (1.8-7.8); NEUTROPHILS % (AUTO) 64 % (42-75); PLATELET COUNT 69 10^3/uL (130-400); WHITE BLOOD COUNT 3.6 10^3/uL (4.3-11.0)
[2021-07-01 16:33] LABS: BILIRUBIN,URINE NEGATIVE (NEGATIVE); CLARITY,URINE CLEAR; COLOR,URINE YELLOW; GLUCOSE, URINE (UA) NEGATIVE (NEGATIVE); KETONES,URINE NEGATIVE (NEGATIVE); LEUKOCYTE ESTERASE ,URINE NEGATIVE (NEGATIVE); NITRITE,URINE NEGATIVE (NEGATIVE); PH,URINE 7.5 (5-9); PROTEIN,URINE NEGATIVE (NEGATIVE)
[2021-07-01 16:40] LABS: ALBUMIN 4.2 GM/DL (3.2-4.5)
[2021-07-01 16:41] LABS: CHLORIDE 102 MMOL/L (98-107); POTASSIUM 3.4 MMOL/L (3.6-5.0); SODIUM 136 MMOL/L (135-145)
[2021-07-01 16:41] LABS: BACTERIA,URINE NEGATIVE /HPF
[2021-07-01 16:43] LABS: GLUCOSE 111 MG/DL (70-105); TOTAL PROTEIN 7.1 GM/DL (6.4-8.2)
[2021-07-01 16:44] LABS: CARBON DIOXIDE 20 MMOL/L (21-32)
[2021-07-01 16:45] LABS: BILIRUBIN,TOTAL 0.8 MG/DL (0.1-1.0)
[2021-07-01 16:46] LABS: AMPHETAMINE SCREEN, URINE NEGATIVE (NEGATIVE); BARBITURATE SCREEN URINE NEGATIVE (NEGATIVE); BENZODIAZEPINES SCREEN URINE NEGATIVE (NEGATIVE); CANNABINOID SCREEN, URINE NEGATIVE (NEGATIVE); COCAINE SCREEN URINE NEGATIVE (NEGATIVE); METHADONE STAT NEGATIVE (NEGATIVE); METHAMPHETAMINE SCREEN URINE S NEGATIVE (NEGATIVE); OPIATE SCREEN URINE NEGATIVE (NEGATIVE); OXYCODONE STAT NEGATIVE (NEGATIVE); PROPOXYPHENE STAT NEGATIVE (NEGATIVE); TRICYCLIC ANTIDEPRESSANTS SCRE NEGATIVE (NEGATIVE)
[2021-07-01 16:47] LABS: ALKALINE PHOSPHATASE 96 U/L (40-136); CREATININE SERUM 0.95 MG/DL (0.60-1.30); GFR ESTIMATED 90
[2021-07-01 16:48] LABS: BUN/CREATININE RATIO 9
[2021-07-01 16:49] LABS: MAGNESIUM 1.5 MG/DL (1.6-2.4)
[2021-07-01 16:50] LABS: ALANINE AMINOTRANSFERASE 42 U/L (0-55)
[2021-07-01] MEDS ORDERED: HYDR50CA3 PO ×2 (17:08→17:12)
--- NOTE | 2021-07-01 17:09 | ED General ---
General Chief Complaint: General Problems/Pain Stated Complaint: SEIZURES Nursing Triage Note: ARRIVED VIA WC TO ROOM 01. STATES HE WAS JUST RELEASED FROM HOSPITAL WITH ETOH WITHDRAW SEIZURE. STATES TODAY HE FEELS VERY SHAKEY, ANXIOUS, ET EMOTIONAL. DENIES ETOH SINCE LAST TUESDAY. DENIES HAVING A SEIZURE TODAY. Source of Information: Patient History of Present Illness Date Seen by Provider: Jul 01, 2021 Time Seen by Provider: 16:14 Initial Comments PT ARRIVES VIA POV FROM HOME PT ADMITTED 06/28-06/29/21 FOR NEW ONSET ALCOHOL WITHDRAWL SEIZURE PT WITH LONGSTANDING ALCOHOL ABUSE, LAST DRINK WAS AROUND 06/26/21 PT WAS DISMISSED WITH RX'S FOR FOLIC ACID AND THIAMINE--JUST PICKED UP RX'S TODAY, AND TOOK FOLIC ACID. HAS NOT TAKEN THIAMINE YET. PT C/O CONTINUED FEELING OF SHAKINESS, SLIGHT NAUSEA AND SLIGHT DIZZINESS, WELL FEELING ANXIOUS HAS NOT HAD ANY SEIZURES SINCE HE WAS ADMITTED TO THE HOSPITAL HAS BEEN EATING AND DRINKING NORMALLY PT [facility]ET--GIVES NO EXPLANATION--STATES "JUST HAVEN'T GOTTEN AROUND TO DOING THAT YET" PCP: [facility] Allergies and Home Medications Allergies Coded Allergies: NKANo Known Allergies (Unverified Allergy, Mild, 10/15/09) Patient Home Medication List Home Medication List Reviewed: Yes Folic Acid (Folic Acid) 1 Mg Tablet, 1 MG PO DAILY Prescribed by: CHAKA CALVILLO on 06/29/21 1319 Hydroxyzine Pamoate (Hydroxyzine Pamoate) 50 Mg Capsule, 50 MG PO TID Prescribed by: OCHOA DILLON on 07/01/21 171 Thiamine HCl (Vitamin B-1) 100 Mg Tablet, 100 MG PO DAILY@0700 Prescribed by: CHAKA CALVILLO on 06/29/21 1319 Discontinued Medications Ibuprofen (Ibuprofen) 200 Mg Tablet, 400-600 MG PO Q8H PRN for PAIN-MILD (1-4), (Reported) Discontinued Reason: No Longer Taking Entered as Reported by: RACQUEL HODGES on 01/09/21 0911 Ibuprofen (Ibuprofen) 200 Mg Tablet, 400 MG PO Q8H PRN for PAIN-MILD (1-4), (Reported) Entered as Reported by: RACQUEL HODGES on 06/29/21 1011 Review of Systems Review of Systems Constitutional: see HPI, dizziness EENTM: no symptoms reported Respiratory: no symptoms reported Cardiovascular: no symptoms reported Gastrointestinal: see HPI; No abdominal pain, No diarrhea, No loss of appetite; nausea; No vomiting Genitourinary: no symptoms reported Musculoskeletal: no symptoms reported Skin: no symptoms reported Psychiatric/Neurological: See HPI, Anxiety; Denies Headache; Tremors Hematologic/Lymphatic: No Symptoms Reported Immunological/Allergic: no symptoms reported Past Zasncwf-Bgrnnf-Rgkoxw Hx Patient Social History Tobacco Use?: Yes Tobacco type used: Cigarettes Smoking Status: Current Everyday Smoker Substance use?: Yes Substance type: Marijuana Alcohol Use?: Yes Alcohol type: Hard Liquor Alcohol Frequency: Daily Immunizations Up To Date Tetanus Booster (TDap): Unknown Seasonal Allergies Seasonal Allergies: No Past Medical History Surgery/Hospitalization HX: DENTAL EXTRACTIONS Surgeries: Yes (TEETH REMOVED, "FATTY TUMOR" REMOVED FROM RT CHIN/NECK) Respiratory: No Currently Using CPAP: No Currently Using BIPAP: No Cardiac: No Neurological: No Genitourinary: No Gastrointestinal: No Musculoskeletal: Yes ("BROKE HIS BACK" --NO SURGERY, PER PT ) Endocrine: No HEENT: Yes (MULTIPLE DENTAL EXTRACTIONS) Cancer: No Psychosocial: Yes (SUBSTANCE ABUSE) Integumentary: Yes Psoriasis Blood Disorders: No Family Medical History No Pertinent Family Hx SOCIAL HISTORY: -ETOH--DRINKS 2 PINTS OF VODKA EVERY DAY, SOMETIMES MORE THAN THAT -DRUGS--REGULAR MARIJUANA USE -SMOKES 1 PPD Physical Exam Vital Signs Vital Signs - First Documented 07/01/21 16:08 Temp 36.3 Pulse 87 Resp 16 B/P (MAP) 130/88 (102) Pulse Ox 97 O2 Delivery Room Air Capillary Refill : Less Than 3 Seconds Height, Weight, BMI Height: 5'11.00" Weight: 155lbs. oz. 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 NO TREMORS NOTED AT THIS TIME) Skin: Normal Color, Warm/Dry; No Rash Progress/Results/Core Measures Suspected Sepsis SIRS Temperature: Pulse: 87 Respiratory Rate: 16 Laboratory Tests 07/01/21 16:20: White Blood Count 3.6L Blood Pressure 130 /88 Mean: 102 Laboratory Tests 07/01/21 16:20: Creatinine 0.95, Platelet Count 69L, Total Bilirubin 0.8 Results/Orders Lab Results Laboratory Tests Test 07/01/21 16:20 07/01/21 16:24 Range/Units White Blood Count 3.6 L 4.3-11.0 10^3/uL Red Blood Count 4.37 4.30-5.52 10^6/uL Hemoglobin 14.0 13.3-17.7 g/dL Hematocrit 40 40-54 % Mean Corpuscular Volume 92 80-99 fL Mean Corpuscular Hemoglobin 32 25-34 pg Mean Corpuscular Hemoglobin Concent 35 32-36 g/dL Red Cell Distribution Width 14.3 10.0-14.5 % Platelet Count 69 L 130-400 10^3/uL Mean Platelet Volume 10.1 9.0-12.2 fL Immature Granulocyte % (Auto) 0 % Neutrophils (%) (Auto) 64 42-75 % Lymphocytes (%) (Auto) 19 12-44 % Monocytes (%) (Auto) 14 H 0-12 % Eosinophils (%) (Auto) 2 0-10 % Basophils (%) (Auto) 1 0-10 % Neutrophils # (Auto) 2.3 1.8-7.8 10^3/uL Lymphocytes # (Auto) 0.7 L 1.0-4.0 10^3/uL Monocytes # (Auto) 0.5 0.0-1.0 10^3/uL Eosinophils # (Auto) 0.1 0.0-0.3 10^3/uL Basophils # (Auto) 0.0 0.0-0.1 10^3/uL Immature Granulocyte # (Auto) 0.0 0.0-0.1 10^3/uL Percent Immature Platelet Fraction 7.1 0.0-7.6 % Sodium Level 136 135-145 MMOL/L Potassium Level 3.4 L 3.6-5.0 MMOL/L Chloride Level 102 98-107 MMOL/L Carbon Dioxide Level 20 L 21-32 MMOL/L Anion Gap 14 5-14 MMOL/L Blood Urea Nitrogen 9 7-18 MG/DL Creatinine 0.95 0.60-1.30 MG/DL Estimat Glomerular Filtration Rate 90 BUN/Creatinine Ratio 9 Glucose Level 111 H 70-105 MG/DL Calcium Level 10.0 8.5-10.1 MG/DL Corrected Calcium 9.8 8.5-10.1 MG/DL Magnesium Level 1.5 L 1.6-2.4 MG/DL Total Bilirubin 0.8 0.1-1.0 MG/DL Aspartate Amino Transf (AST/SGOT) 47 H 5-34 U/L Alanine Aminotransferase (ALT/SGPT) 42 0-55 U/L Alkaline Phosphatase 96 40-136 U/L Total Protein 7.1 6.4-8.2 GM/DL Albumin 4.2 3.2-4.5 GM/DL Serum Alcohol < 10 <10 MG/DL Urine Color YELLOW Urine Clarity CLEAR Urine pH 7.5 5-9 Urine Specific [place] 1.020 1.016-1.022 Urine Protein NEGATIVE NEGATIVE Urine Glucose (UA) NEGATIVE NEGATIVE Urine Ketones NEGATIVE NEGATIVE Urine Nitrite NEGATIVE NEGATIVE Urine Bilirubin NEGATIVE NEGATIVE Urine Urobilinogen 1.0 < = 1.0 MG/DL Urine Leukocyte Esterase NEGATIVE NEGATIVE Urine RBC (Auto) NEGATIVE NEGATIVE Urine RBC NONE /HPF Urine WBC NONE /HPF Urine Crystals NONE /LPF Urine Bacteria NEGATIVE /HPF Urine Casts NONE /LPF Urine Mucus NEGATIVE /LPF Urine Culture Indicated NO Urine Opiates Screen NEGATIVE NEGATIVE Urine Oxycodone Screen NEGATIVE NEGATIVE Urine Methadone Screen NEGATIVE NEGATIVE Urine Propoxyphene Screen NEGATIVE NEGATIVE Urine Barbiturates Screen NEGATIVE NEGATIVE Ur Tricyclic Antidepressants Screen NEGATIVE NEGATIVE Urine Phencyclidine Screen NEGATIVE NEGATIVE Urine Amphetamines Screen NEGATIVE NEGATIVE Urine Methamphetamines Screen NEGATIVE NEGATIVE Urine Benzodiazepines Screen NEGATIVE NEGATIVE Urine Cocaine Screen NEGATIVE NEGATIVE Urine Cannabinoids Screen NEGATIVE NEGATIVE My Orders Orders - OCHOA DILLON DO Ed Iv/Invasive Line Start (07/01/21 16:19) Ekg Tracing (07/01/21 16:19) Monitor-Rhythm Ecg Trace Only (07/01/21 16:19) Alcohol (07/01/21 16:19) Cbc With Automated Diff (07/01/21 16:19) Comprehensive Metabolic Panel (07/01/21 16:19) Drug Screen Stat (Urine) (07/01/21 16:19) Magnesium (07/01/21 16:19) Ua Culture If Indicated (07/01/21 16:19) Potassium Chloride (Tablet) (Klor Con Ta (07/01/21 17:15) Magnesium Oxide Tablet (Mag Ox Tablet) (07/01/21 17:15) Vital Signs/I&O 07/01/21 16:08 Temp 36.3 Pulse 87 Resp 16 B/P (MAP) 130/88 (102) Pulse Ox 97 O2 Delivery Room Air Capillary Refill : Less Than 3 Seconds Blood Pressure Mean: 102 Progress Note : Progress Note UNEVENTFUL ER STAY ECG Initial ECG Impression Date: Jul 01, 2021 Initial ECG Impression Time: 16:16 Initial ECG Rate: 99 Initial ECG Rhythm: Normal Sinus Departure Impression Primary Impression: Alcoholism Additional Impressions: PERSISITENT ALCOHOL WITHDRAWL SYMPTOMS Anxiety Hypokalemia Hypomagnesemia Disposition: 01 HOME, SELF-CARE Condition: Stable Departure-Patient Inst. Decision time for Depature: 17:05 Referrals: [facility] (PCP/Family) Primary Care Physician Patient Instructions: Low Magnesium Level (DC), Alcohol Use Disorder (DC), Hypokalemia, Anxiety, Adult ED Add. Discharge Instructions: CONTINUE YOUR MEDICATIONS PRESCRIBED FOLLOW UP WITH [facility] ARRANGED All discharge instructions reviewed with patient and/or family. Voiced understanding. Scripts Hydroxyzine Pamoate (Hydroxyzine Pamoate) 50 Mg Capsule 50 MG PO TID for Anxiety, #15 CAP Prov: OCHOA DILLON DO 07/01/21 OCHOA DILLON DO Jul 01, 2021 17:09
[2021-07-01] MEDS ORDERED: KCL 10 MEQ TAB (MICRO K) PO ONE (17:15)
[2021-07-01] MEDS ORDERED: MAGNESIUM OXIDE (MAG-OX)400 MG TAB PO ONE (17:15)
[2021-07-01 17:17] VITALS: BP 120/82
== END 2021-07-01 17:17 | disposition home or self-care (01) ==
LOC: EDUNIT# 15:56 → ER 15:59
DX: F10.20 Alcohol dependence, uncomplicated (principal); F41.9 Anxiety disorder, unspecified; E87.6 Hypokalemia; E83.42 Hypomagnesemia; F17.210 Nicotine dependence, cigarettes, uncomplicated
CPT/HCPCS: 80053; 80306; 81000; 83735; 85025; 93005; 93041; 99284; G0480; 36415; 80320

== ENCOUNTER 2021-07-06 15:42 | Emergency (ER) | payer MEDICAID ==
[~2021-07-06] VITALS: Ht 177 cm; Wt 72.5 kg
[~2021-07-06 15:42] MED LIST changes: +HYDR50CA3 PO
[2021-07-06 15:52] VITALS: BP 126/81
== END 2021-07-06 15:52 | disposition home or self-care (01) ==
LOC: EDUNIT# 15:42 → ER 15:43
DX: Z48.02 Encounter for removal of sutures (principal)

== ENCOUNTER 2021-07-22 16:31 | Emergency (ER) | payer MEDICAID ==
[~2021-07-22] VITALS: Ht 177.8 cm; Wt 68.0 kg
[2021-07-22] MEDS ORDERED: ONDANSETRON 4 MG (ZOFRAN) ORAL DISSOLVE TAB PO STA (16:39)
--- NOTE | 2021-07-22 16:39 | ED Psychosocial ---
General Chief Complaint: Psych/Social Disorder Stated Complaint: ANXIETY Source: patient Exam Limitations: no limitations History of Present Illness Date Seen by Provider: Jul 22, 2021 Time Seen by Provider: 16:21 Initial Comments Patient to the ER by EMS from home chief complaint that he is feeling some restlessness short of breath tingling and numbness in his fingertips narrowed vision. He has a history of seizure disorder and does not know if it means of s eizures coming on. He says he had symptoms like this a couple weeks ago and came in and the ER doctor gave him some Vistaril. He says it has been helping a lot with the symptoms however he took his last dose yesterday. He has a follow- up appointment with psychiatry at [facility] August 28. He does endorse a history of anxiety. No chest pain. He feels little nauseated. Patient is also concerned that he could be detoxing. He says he drinks vodka daily and his last drink was this morning around 9 he had a pint of vodka. EMS notes his blood sugar was normal when they arrived. Allergies and Home Medications Allergies Coded Allergies: DENISEANo Known Allergies (Unverified Allergy, Mild, 10/15/09) Patient Home Medication List Home Medication List Reviewed: Yes Folic Acid (Folic Acid) 1 Mg Tablet, 1 MG PO DAILY Prescribed by: CHAKA CALVILLO on 06/29/21 1319 Hydroxyzine Pamoate (Hydroxyzine Pamoate) 50 Mg Capsule, 50 MG PO TID Prescribed by: OCHOA DILLON on 07/01/21 1712 Hydroxyzine Pamoate (Vistaril) 25 Mg Capsule, 25 MG PO Q6H PRN for ANXIETY Prescribed by: ZOFIA CALERO on 07/22/21 1646 Thiamine HCl (Vitamin B-1) 100 Mg Tablet, 100 MG PO DAILY@0700 Prescribed by: CHAKA CALVILLO on 06/29/21 1319 Review of Systems Constitutional: No chills, No diaphoresis; malaise EENTM: No ear discharge, No ear pain Respiratory: No phlegm, No short of breath Cardiovascular: No chest pain, No palpitations Gastrointestinal: No abdominal pain, No constipation, No diarrhea; nausea; No vomiting Genitourinary: No discharge, No dysuria Musculoskeletal: No back pain, No joint pain All Other Systems Reviewed Negative Unless Noted: Yes Past Gfwbtly-Xrxtvp-Bbqzzr Hx Patient Social History Use of E-Cig and/or Vaping dev: No Alcohol Use?: Yes Alcohol type: Hard Liquor Alcohol Frequency: Daily Immunizations Up To Date Tetanus Booster (TDap): Unknown Seasonal Allergies Seasonal Allergies: No Past Medical History Surgery/Hospitalization HX: DENTAL EXTRACTIONS Surgeries: Yes (TEETH REMOVED, "FATTY TUMOR" REMOVED FROM RT CHIN/NECK) Respiratory: No Currently Using CPAP: No Currently Using BIPAP: No Cardiac: No Neurological: No Genitourinary: No Gastrointestinal: No Musculoskeletal: Yes ("BROKE HIS BACK" --NO SURGERY, PER PT ) Endocrine: No HEENT: Yes (MULTIPLE DENTAL EXTRACTIONS) Cancer: No Psychosocial: Yes (SUBSTANCE ABUSE) Integumentary: Yes Psoriasis Blood Disorders: No Family Medical History No Pertinent Family Hx SOCIAL HISTORY: -ETOH--DRINKS 2 PINTS OF VODKA EVERY DAY, SOMETIMES MORE THAN THAT -DRUGS--REGULAR MARIJUANA USE -SMOKES 1 PPD Physical Exam Vital Signs - First Documented 07/22/21 16:32 Temp 36.9 Pulse 114 Resp 18 B/P (MAP) 149/99 (116) O2 Delivery Room Air Capillary Refill : Height, Weight, BMI Height: 5'11.00" Weight: 155lbs. oz. 70.444044ry; 26.00 BMI Method:Estimated General Appearance: mild distress, other (Disheveled) HEENT: PERRL/EOMI, pharynx normal Neck: full range of motion, supple, normal inspection Respiratory: lungs clear, normal breath sounds, no respiratory distress, no accessory muscle use Cardiovascular: normal peripheral pulses, regular rate, rhythm, tachycardia (110) Gastrointestinal: non tender, soft Extremities: non-tender, normal inspection, normal capillary refill Neurologic/Psychiatric: alert, oriented x 3, other (Anxious affect) Progress/Results/Core Measures Results/Orders My Orders Orders - ZOFIA CALERO Hydroxyzine Cap/Tab (Vistaril) (07/22/21 16:45) Ondansetron Oral Dissolve Tab (Zofran (07/22/21 16:39) Medications Given in ED Current Medications Medications Dose Ordered Sig/Kaiden Route Start Time Stop Time Status Last Admin Dose Admin Hydroxyzine Pamoate 25 mg ONCE ONCE PO 07/22/21 16:45 07/22/21 16:46 DC 07/22/21 16:43 25 MG Vital Signs/I&O 07/22/21 16:32 Temp 36.9 Pulse 114 Resp 18 B/P (MAP) 149/99 (116) O2 Delivery Room Air Progress Progress Note #1: Time: 16:40 Progress Note Patient is endorsing hallmark signs of a panic attack. We will give him some Vistaril, Zofran and ice chips and observe him for short period time. Patient is okay with this plan. With his recent drinking this morning is unlikely he is already detoxing after a pint of vodka. If after a short observation period he is able to tolerate p.o. fluids and he could go home and follow-up at his [facility] appointments. We will provide him with a prescription for some Vistaril. Progress Note #2: Time: 17:10 Progress Note The patient's nausea is gone. The patient is no longer feeling as anxious as before and is feeling much better. He says he is ready to go. We will send him a prescription to the pharmacy like he asked. Departure Impression Primary Impression: Anxiety Disposition: 01 HOME, SELF-CARE Condition: Stable Departure-Patient Inst. Decision time for Depature: 17:11 [facility] ([facility]Family) Primary Care Physician Patient Instructions: Panic Disorder (DC) Add. Discharge Instructions: Vistaril 1 tablet every 6 hours as necessary for anxiety attacks. Keep your scheduled follow-up appointment with your providers. All discharge instructions reviewed with patient and/or family. Voiced understanding. Scripts Hydroxyzine Pamoate (Vistaril) 25 Mg Capsule 25 MG PO Q6H PRN for ANXIETY, #30 CAP 0 Refills Prov: ZOFIA CALERO 07/22/21 ZOFIA CALERO Jul 22, 2021 16:39
[2021-07-22] MEDS ORDERED: hydrOXYzine (VISTARIL/ATARAX) 25 MG capsule/tablet PO ONE (16:45)
[2021-07-22] MEDS ORDERED: HYDR25CA PO (16:46)
[2021-07-22 17:15] VITALS: BP 134/70
[2021-07-23] MEDS ORDERED: LORA-404 PO (02:49)
[2021-07-23] MEDS ORDERED: FAMO-119 PO (02:50)
== END 2021-07-22 17:15 | disposition home or self-care (01) ==
LOC: EDUNIT# 16:31 → ER 16:34 → ER FS 17:15
DX: F41.9 Anxiety disorder, unspecified (principal); R00.0 Tachycardia, unspecified
CPT/HCPCS: 99283

== ENCOUNTER 2021-07-22 23:17 | Emergency (ER) | payer MEDICAID ==
[~2021-07-22] VITALS: Ht 180.3 cm; Wt 68.0 kg
[~2021-07-22 23:17] MED LIST changes: +HYDR25CA PO
[2021-07-23 00:12] LABS: BASOPHILS % (AUTO) 0 % (0-10); EOSINOPHILS % (AUTO) 1 % (0-10); HEMATOCRIT 41 % (40-54); HEMOGLOBIN 14.9 g/dL (13.3-17.7); LYMPHOCYTES # (AUTO) 1.4 10^3/uL (1.0-4.0); LYMPHOCYTES % (AUTO) 27 % (12-44); MEAN CORPUSCULAR HEMOGLOBIN 32 pg (25-34); MEAN CORPUSCULAR HGB CONC 36 g/dL (32-36); MEAN CORPUSCULAR VOLUME 88 fL (80-99); MEAN PLATELET VOLUME 9.3 fL (9.0-12.2); MONOCYTES # (AUTO) 0.4 10^3/uL (0.0-1.0); MONOCYTES % (AUTO) 9 % (0-12); NEUTROPHILS # (AUTO) 3.3 10^3/uL (1.8-7.8); NEUTROPHILS % (AUTO) 64 % (42-75); PLATELET COUNT 189 10^3/uL (130-400); WHITE BLOOD COUNT 5.2 10^3/uL (4.3-11.0)
[2021-07-23 00:15] LABS: ALBUMIN 4.3 GM/DL (3.2-4.5); POTASSIUM 3.5 MMOL/L (3.6-5.0)
[2021-07-23 00:16] LABS: CALCIUM 9.5 MG/DL (8.5-10.1)
[2021-07-23 00:19] LABS: BILIRUBIN,TOTAL 0.7 MG/DL (0.1-1.0)
[2021-07-23 00:21] LABS: CREATININE SERUM 0.94 MG/DL (0.60-1.30)
[2021-07-23 00:24] LABS: MAGNESIUM 1.5 MG/DL (1.6-2.4)
[2021-07-23 00:24] LABS: AMPHETAMINE SCREEN, URINE NEGATIVE (NEGATIVE); BARBITURATE SCREEN URINE NEGATIVE (NEGATIVE); BENZODIAZEPINES SCREEN URINE NEGATIVE (NEGATIVE); CANNABINOID SCREEN, URINE POSITIVE (NEGATIVE); COCAINE SCREEN URINE NEGATIVE (NEGATIVE); METHADONE STAT NEGATIVE (NEGATIVE); METHAMPHETAMINE SCREEN URINE S NEGATIVE (NEGATIVE); OPIATE SCREEN URINE NEGATIVE (NEGATIVE); OXYCODONE STAT NEGATIVE (NEGATIVE); PROPOXYPHENE STAT NEGATIVE (NEGATIVE); TRICYCLIC ANTIDEPRESSANTS SCRE NEGATIVE (NEGATIVE)
[2021-07-23] MEDS ORDERED: FAMOTIDINE 20MG/2ML IV (PEPCID) IV STA (00:37)
[2021-07-23 00:44] LABS: INR 0.9 (0.8-1.4)
[2021-07-23] MEDS ORDERED: ANTACID SUSP 30 ML UDC (MYLANTA) PO ONE (00:45)
[2021-07-23] MEDS ORDERED: LIDOCAINE 2% VISCOUS 15 ML UDC PO ONE (00:45)
[2021-07-23] MEDS ORDERED: LORazepam INJ 2 MG/ML (ATIVAN) VIAL IVP ONE (00:45)
[2021-07-23] MEDS ORDERED: ONDANSETRON 4 MG/2 ML (SDV) Z0FRAN IVP ONE (00:45)
[2021-07-23] MEDS ORDERED: LACTATED RINGERS 1,000 ML IV ONE (01:00)
[2021-07-23] MEDS ORDERED: MAGNESIUM 1 GM/100 ML IVPB 100 ML IV ONE (01:00)
[2021-07-23] MEDS ORDERED: RX-LORAZEPAM (ATIVAN) 0.5 MG TAB PPK#4 PO STA (01:46)
[2021-07-23] MEDS ORDERED: LORA-404 PO (02:49)
[2021-07-23] MEDS ORDERED: FAMO-119 PO (02:50)
--- NOTE | 2021-07-23 02:52 | ED Chest Pain ---
General Chief Complaint: Psych/Social Disorder Stated Complaint: CP,DIZZY,ANXIETY,SOB Nursing Triage Note: Pt ambulates to ED 7 with c/o chest pain, dizzyness, nausea, diaphoresis, and shaking. Pt reports this started 2 hours [employer]. He also states he just started a new dose of an anxiolytic (hydroxazine) today. He also states that he is afraid of having another seizure. He is at least a pint a day vodka drinker (or "whatever I can get my hands on") and has not had anything to drink today. He reports that he was in ICU a month ago for an alcohol withdrawal related seizure. Source: patient Exam Limitations: no limitations History of Present Illness Date Seen by Provider: Jul 23, 2021 Time Seen by Provider: 00:03 Allergies and Home Medications Allergies Coded Allergies: NKANo Known Allergies (Unverified Allergy, Mild, 10/15/09) Patient Home Medication List Home Medication List Reviewed: Yes Famotidine (Pepcid) 20 Mg Tablet, 20 MG PO BID Prescribed by: SUNDAR LEONARDO on 07/23/21 0250 Folic Acid (Folic Acid) 1 Mg Tablet, 1 MG PO DAILY Prescribed by: CHAKA CALVILLO on 06/29/21 1319 Hydroxyzine Pamoate (Hydroxyzine Pamoate) 50 Mg Capsule, 50 MG PO TID Prescribed by: OCHOA DILLON on 07/01/21 1712 Hydroxyzine Pamoate (Vistaril) 25 Mg Capsule, 25 MG PO Q6H PRN for ANXIETY Prescribed by: ZOFIA CALERO on 07/22/21 1646 Lorazepam (Ativan) 0.5 Mg Tablet, 1-2 MG PO Q6H PRN for ANXIETY Prescribed by: SUNDAR LEONARDO on 07/23/21 0249 Thiamine HCl (Vitamin B-1) 100 Mg Tablet, 100 MG PO DAILY@0700 Prescribed by: CHAKA CALVILLO on 06/29/21 1319 Past Dpluuam-Afviqt-Rwddvg Hx Patient Social History Tobacco Use?: Yes Tobacco type used: Cigarettes Smoking Status: Current Everyday Smoker Smokeless Tobacco Frequency: Never a User Use of E-Cig and/or Vaping dev: No Use of E-Cig and/or Vaping Lance: Never a User Substance use?: Yes Substance type: Marijuana Substance frequency: Once in a while Alcohol Use?: Yes Alcohol type: Hard Liquor Alcohol Frequency: Daily Pt feels they are or have been: No Immunizations Up To Date Tetanus Booster (TDap): Unknown First/Initial COVID19 Vaccinat: No Vaccine Seasonal Allergies Seasonal Allergies: No Past Medical History Surgery/Hospitalization HX: DENTAL EXTRACTIONS Surgeries: Yes (TEETH REMOVED, "FATTY TUMOR" REMOVED FROM RT CHIN/NECK) Respiratory: No Currently Using CPAP: No Currently Using BIPAP: No Cardiac: No Neurological: No Genitourinary: No Gastrointestinal: No Musculoskeletal: Yes ("BROKE HIS BACK" --NO SURGERY, PER PT ) Endocrine: No HEENT: Yes (MULTIPLE DENTAL EXTRACTIONS) Cancer: No Psychosocial: Yes (SUBSTANCE ABUSE) Integumentary: Yes Psoriasis Blood Disorders: No Family Medical History No Pertinent Family Hx SOCIAL HISTORY: -ETOH--DRINKS 2 PINTS OF VODKA EVERY DAY, SOMETIMES MORE THAN THAT -DRUGS--REGULAR MARIJUANA USE -SMOKES 1 PPD Physical Exam Vital Signs Vital Signs - First Documented 07/22/21 23:26 Temp 36.4 Pulse 101 Resp 22 B/P (MAP) 132/95 (107) Pulse Ox 99 O2 Delivery Room Air Capillary Refill : Less Than 3 Seconds Height, Weight, BMI Height: 5'11.00" Weight: 155lbs. oz. 70.044158kj; 20.00 BMI Method:Estimated Progress/Results/Core Measures Results/Orders Lab Results Laboratory Tests Test 07/22/21 23:44 07/22/21 23:45 07/23/21 02:07 Range/Units White Blood Count 5.2 4.3-11.0 10^3/uL Red Blood Count 4.68 4.30-5.52 10^6/uL Hemoglobin 14.9 13.3-17.7 g/dL Hematocrit 41 40-54 % Mean Corpuscular Volume 88 80-99 fL Mean Corpuscular Hemoglobin 32 25-34 pg Mean Corpuscular Hemoglobin Concent 36 32-36 g/dL Red Cell Distribution Width 13.9 10.0-14.5 % Platelet Count 189 130-400 10^3/uL Mean Platelet Volume 9.3 9.0-12.2 fL Immature Granulocyte % (Auto) 0 % Neutrophils (%) (Auto) 64 42-75 % Lymphocytes (%) (Auto) 27 12-44 % Monocytes (%) (Auto) 9 0-12 % Eosinophils (%) (Auto) 1 0-10 % Basophils (%) (Auto) 0 0-10 % Neutrophils # (Auto) 3.3 1.8-7.8 10^3/uL Lymphocytes # (Auto) 1.4 1.0-4.0 10^3/uL Monocytes # (Auto) 0.4 0.0-1.0 10^3/uL Eosinophils # (Auto) 0.0 0.0-0.3 10^3/uL Basophils # (Auto) 0.0 0.0-0.1 10^3/uL Immature Granulocyte # (Auto) 0.0 0.0-0.1 10^3/uL Erythrocyte Sedimentation Rate 3 0-15 MM/HR Prothrombin Time 13.0 12.2-14.7 SEC INR Comment 0.9 0.8-1.4 Activated Partial Thromboplast Time 30 24-35 SEC Sodium Level 139 135-145 MMOL/L Potassium Level 3.5 L 3.6-5.0 MMOL/L Chloride Level 104 98-107 MMOL/L Carbon Dioxide Level 18 L 21-32 MMOL/L Anion Gap 17 H 5-14 MMOL/L Blood Urea Nitrogen 13 7-18 MG/DL Creatinine 0.94 0.60-1.30 MG/DL Estimat Glomerular Filtration Rate 91 BUN/Creatinine Ratio 14 Glucose Level 89 70-105 MG/DL Calcium Level 9.5 8.5-10.1 MG/DL Corrected Calcium 9.3 8.5-10.1 MG/DL Magnesium Level 1.5 L 1.6-2.4 MG/DL Total Bilirubin 0.7 0.1-1.0 MG/DL Aspartate Amino Transf (AST/SGOT) 74 H 5-34 U/L Alanine Aminotransferase (ALT/SGPT) 31 0-55 U/L Alkaline Phosphatase 109 40-136 U/L Myoglobin 191.0 H 10.0-92.0 NG/ML Troponin I < 0.028 < 0.028 <0.028 NG/ML C-Reactive Protein High Sensitivity 0.02 0.00-0.50 MG/DL Total Protein 7.0 6.4-8.2 GM/DL Albumin 4.3 3.2-4.5 GM/DL Serum Alcohol 69 H <10 MG/DL Urine Opiates Screen NEGATIVE NEGATIVE Urine Oxycodone Screen NEGATIVE NEGATIVE Urine Methadone Screen NEGATIVE NEGATIVE Urine Propoxyphene Screen NEGATIVE NEGATIVE Urine Barbiturates Screen NEGATIVE NEGATIVE Ur Tricyclic Antidepressants Screen NEGATIVE NEGATIVE Urine Phencyclidine Screen NEGATIVE NEGATIVE Urine Amphetamines Screen NEGATIVE NEGATIVE Urine Methamphetamines Screen NEGATIVE NEGATIVE Urine Benzodiazepines Screen NEGATIVE NEGATIVE Urine Cocaine Screen NEGATIVE NEGATIVE Urine Cannabinoids Screen POSITIVE H NEGATIVE My Orders Orders - SUNDAR LLOYD MD Cbc With Automated Diff (07/23/21 00:03) Magnesium (07/23/21 00:03) Chest 1 View, Ap/Pa Only (07/23/21 00:03) Ekg Tracing (07/23/21 00:03) Comprehensive Metabolic Panel (07/23/21 00:03) Myoglobin Serum (07/23/21 00:03) Protime With Inr (07/23/21 00:03) Partial Thromboplastin Time (07/23/21 00:03) O2 (07/23/21 00:03) Monitor-Rhythm Ecg Trace Only (07/23/21 00:03) Ed Iv/Invasive Line Start (07/23/21 00:03) Troponin I (07/23/21 00:03) Alcohol (07/23/21 00:03) Drug Screen Stat (Urine) (07/23/21 00:03) Hs C Reactive Protein (07/23/21 00:13) Erythrocyte Sedimentation Rate (07/23/21 00:13) Lorazepam Injection (Ativan Injection) (07/23/21 00:45) Ondansetron Injection (Zofran Injectio (07/23/21 00:45) Lidocaine 2% Viscous 15 Ml (Xylocaine Vi (07/23/21 00:45) Antacid Suspension (Mylanta Suspension (07/23/21 00:45) Famotidine Injection (Pepcid Injection) (07/23/21 00:37) Lactated Ringers (Lr 1000 Ml Iv Solution (07/23/21 01:00) Magnesium 1 Gm/100 Ml Ivpb (Magnesium [place] (07/23/21 01:00) Troponin I (07/23/21 01:45) Rx-Lorazepam (Rx-Ativan) (07/23/21 01:46) Medications Given in ED Current Medications Medications Dose Ordered Sig/Kaiden Route Start Time Stop Time Status Last Admin Dose Admin Al Hydrox/Mg Hydrox/Simethicone 30 ml ONCE ONCE PO 07/23/21 00:45 07/23/21 00:46 DC 07/23/21 00:49 30 ML Lidocaine HCl 15 ml ONCE ONCE PO 07/23/21 00:45 07/23/21 00:46 DC 07/23/21 00:49 15 ML Lorazepam 1 mg ONCE ONCE IVP 07/23/21 00:45 07/23/21 00:46 DC 07/23/21 00:49 1 MG Ondansetron HCl 4 mg ONCE ONCE IVP 07/23/21 00:45 07/23/21 00:46 DC 07/23/21 00:49 4 MG Vital Signs/I&O 07/22/21 07/22/21 07/23/21 23:26 23:30 02:58 Temp 36.4 36.4 Pulse 101 85 Resp 22 16 B/P (MAP) 132/95 (107) 105/94 Pulse Ox 99 100 100 O2 Delivery Room Air Room Air Room Air Blood Pressure Mean: 107 Progress Progress Note : Progress Note Patient received IV hydration and a gram of magnesium was administered for his hypomagnesemia. GI cocktail was administered along with Pepcid and Zofran. This completely alleviated his chest pain. Ativan was given for his withdrawal symptoms which resolved his tremor and agitation. A take-home bottle was dispensed. See discharge instructions. Initial ECG Impression Date: Jul 23, 2021 Initial ECG Impression Time: 00:09 Initial ECG Rate: 84 Initial ECG Rhythm: Normal Sinus Comment Normal sinus rhythm. Minimal diffuse ST change suggestive of early repolarization pattern in a younger patient. No abnormal intervals or axis deviation. Departure Impression Primary Impression: Alcohol withdrawal seizure Qualified Codes: F10.239 - Alcohol dependence with withdrawal, unspecified; R56.9 - Unspecified convulsions Additional Impression: Atypical chest pain Disposition: 01 HOME, SELF-CARE Condition: Improved Departure-Patient Inst. Decision time for Depature: 02:45 [facility] (PCP/Family) Primary Care Physician Patient Instructions: Chest Pain, Alcohol Withdrawal (DC) Add. Discharge Instructions: If you continue abstaining from alcohol this morning, use Ativan (lorazepam) 0.5 mg 1 to 2 tablets every 4 hours as needed for withdrawal symptoms such as racing heart, tremoring, agitation, hallucinations, etc. Follow-up with your primary care team as soon as possible for assistance with withdraw and alcohol dependence. [facility] has resources to help with substance abuse and dependence. Please inquire when you call for follow-up. Your chest pain may be related to acid reflux. It is recommended that you take an antacid such as Pepcid (famotidine) for at least the next month. Call with questions or concerns. Return to the ER if you have worsening symptoms. All discharge instructions reviewed with patient and/or family. Voiced understanding. Scripts Famotidine (Pepcid) 20 Mg Tablet 20 MG PO BID, #60 TAB Prov: SUNDAR LLOYD MD 07/23/21 Lorazepam (Ativan) 0.5 Mg Tablet 1-2 MG PO Q6H PRN for ANXIETY, #10 TAB Prov: SUNDAR LLOYD MD 07/23/21 Copy Copies To 1: NESHA PEARSON JOSHUA T MD Jul 23, 2021 02:52
[2021-07-23 02:58] VITALS: BP 105/94
--- NOTE | 2021-07-23 04:09 | Diagnostic Imaging Report ---
Indication: Chest pain Portable chest 2:00 AM Heart size and pulmonary vascularity are normal. Lungs are clear. There are no effusions or pneumothoraces. IMPRESSION: No acute abnormalities in the chest Dictated by: Dictated on workstation # [id number]
== END 2021-07-23 02:58 | disposition home or self-care (01) ==
LOC: EDUNIT# 23:17 → ER 23:23
DX: F10.239 Alcohol dependence with withdrawal, unspecified (principal); R56.9 Unspecified convulsions; R07.89 Other chest pain; F17.210 Nicotine dependence, cigarettes, uncomplicated
CPT/HCPCS: 71045; 80053; 80306; 83735; 83874; 84484 ×2; 85025; 85610; 85652; 85730; 86141; 93005; 93041; 99284; G0480; 36415; 80320

== ENCOUNTER 2021-08-08 11:02 | Emergency (ER) | payer MEDICAID ==
[~2021-08-08] VITALS: Ht 177.8 cm; Wt 68.0 kg
[~2021-08-08 11:02] MED LIST changes: +FAMO-119 PO; +LORA-404 PO
--- NOTE | 2021-08-08 11:14 | ED General ---
General Stated Complaint: PANIC ATTACK/DETOX Source of Information: Patient, EMS Exam Limitations: No Limitations History of Present Illness Date Seen by Provider: Aug 08, 2021 Time Seen by Provider: 11:11 Initial Comments To ER by EMS with reports of panic attack secondary to alcohol detox. He drinks upwards of 1.5 pints of vodka per day last drink was yesterday. He has done this before and made it through it at home though he does have a history of seizure in the past where he fell and cracked his right elbow. He has done outpatient treatment with Ativan and has had great success with that. He is not suicidal or homicidal. He was at addiction treatment center in [place] in February and clean for 72 days before he relapsed. Timing/Duration: 1-2 Days Severity: Moderate Modifying Factors: improves with Movement Allergies and Home Medications Allergies Coded Allergies: DENISEANo Known Allergies (Unverified Allergy, Mild, 10/15/09) Patient Home Medication List Home Medication List Reviewed: Yes Famotidine (Pepcid) 20 Mg Tablet, 20 MG PO BID Prescribed by: SUNDAR LEONARDO on 07/23/21 0250 Folic Acid (Folic Acid) 1 Mg Tablet, 1 MG PO DAILY Prescribed by: CHAKA CALVILLO on 06/29/21 1319 Hydroxyzine Pamoate (Hydroxyzine Pamoate) 50 Mg Capsule, 50 MG PO TID Prescribed by: OCHOA DILLON on 07/01/21 1712 Hydroxyzine Pamoate (Vistaril) 25 Mg Capsule, 25 MG PO Q6H PRN for ANXIETY Prescribed by: ZOFIA CALERO on 07/22/21 1646 Lorazepam (Ativan) 0.5 Mg Tablet, 1-2 MG PO Q6H PRN for ANXIETY Prescribed by: SUNDAR LEONARDO on 07/23/21 0249 Thiamine HCl (Vitamin B-1) 100 Mg Tablet, 100 MG PO DAILY@0700 Prescribed by: CHAKA CALVILLO on 06/29/21 1319 Review of Systems Review of Systems Constitutional: see HPI EENTM: see HPI Respiratory: no symptoms reported Cardiovascular: no symptoms reported Genitourinary: no symptoms reported Musculoskeletal: no symptoms reported Skin: no symptoms reported Psychiatric/Neurological: See HPI, Anxiety Hematologic/Lymphatic: No Symptoms Reported Immunological/Allergic: no symptoms reported Past Yfdnhet-Utmojo-Fwxthc Hx Immunizations Up To Date Tetanus Booster (TDap): Unknown First/Initial COVID19 Vaccinat: No Vaccine Seasonal Allergies Seasonal Allergies: No Past Medical History Surgery/Hospitalization HX: DENTAL EXTRACTIONS Surgeries: Yes (TEETH REMOVED, "FATTY TUMOR" REMOVED FROM RT CHIN/NECK) Respiratory: No Currently Using CPAP: No Currently Using BIPAP: No Cardiac: No Neurological: No Genitourinary: No Gastrointestinal: No Musculoskeletal: Yes ("BROKE HIS BACK" --NO SURGERY, PER PT ) Endocrine: No HEENT: Yes (MULTIPLE DENTAL EXTRACTIONS) Cancer: No Psychosocial: Yes (SUBSTANCE ABUSE, alcohol dependence) Integumentary: Yes Psoriasis Blood Disorders: No Family Medical History No Pertinent Family Hx SOCIAL HISTORY: -ETOH--DRINKS 2 PINTS OF VODKA EVERY DAY, SOMETIMES MORE THAN THAT -DRUGS--REGULAR MARIJUANA USE -SMOKES 1 PPD Physical Exam Vital Signs Vital Signs - First Documented 08/08/21 11:03 Temp 36.5 Pulse 94 Resp 24 B/P (MAP) 151/108 (122) Pulse Ox 100 O2 Delivery Room Air Capillary Refill : Height, Weight, BMI Height: 5'11.00" Weight: 155lbs. oz. 70.571627wg; 20.00 BMI Method:Estimated General Appearance: No Apparent Distress, WD/WN, Anxious, Other (Heart rate 96 sinus no ectopy blood pressure 141/105 oxygen 100% room air alert and oriented GCS 15 anxious appearing. Very pleasant and open about his history.) Eyes: Bilateral Eye Normal Inspection, Bilateral Eye PERRL, Bilateral Eye EOMI HEENT: PERRL/EOMI, TMs Normal Neck: Full Range of Motion, Normal Inspection Respiratory: No Accessory Muscle Use, No Respiratory Distress Cardiovascular: Normal Peripheral Pulses, Tachycardia Gastrointestinal: Normal Bowel Sounds, Non Tender, Soft Extremity: Normal Capillary Refill, Normal Inspection Neurologic/Psychiatric: Alert, Oriented x3 Skin: Normal Color, Warm/Dry Progress/Results/Core Measures Suspected Sepsis SIRS Temperature: Pulse: Respiratory Rate: Laboratory Tests 08/08/21 11:09: White Blood Count 6.9 Blood Pressure / Mean: Laboratory Tests 08/08/21 11:09: Creatinine 0.94, INR Comment 1.0, Platelet Count 228, Total Bilirubin 1.1H Results/Orders Lab Results Laboratory Tests Test 08/08/21 11:09 08/08/21 11:46 Range/Units White Blood Count 6.9 4.3-11.0 10^3/uL Red Blood Count 4.90 4.30-5.52 10^6/uL Hemoglobin 15.7 13.3-17.7 g/dL Hematocrit 44 40-54 % Mean Corpuscular Volume 89 80-99 fL Mean Corpuscular Hemoglobin 32 25-34 pg Mean Corpuscular Hemoglobin Concent 36 32-36 g/dL Red Cell Distribution Width 13.2 10.0-14.5 % Platelet Count 228 130-400 10^3/uL Mean Platelet Volume 8.5 L 9.0-12.2 fL Immature Granulocyte % (Auto) 0 % Neutrophils (%) (Auto) 68 42-75 % Lymphocytes (%) (Auto) 23 12-44 % Monocytes (%) (Auto) 7 0-12 % Eosinophils (%) (Auto) 1 0-10 % Basophils (%) (Auto) 1 0-10 % Neutrophils # (Auto) 4.7 1.8-7.8 10^3/uL Lymphocytes # (Auto) 1.6 1.0-4.0 10^3/uL Monocytes # (Auto) 0.5 0.0-1.0 10^3/uL Eosinophils # (Auto) 0.1 0.0-0.3 10^3/uL Basophils # (Auto) 0.1 0.0-0.1 10^3/uL Immature Granulocyte # (Auto) 0.0 0.0-0.1 10^3/uL Prothrombin Time 13.1 12.2-14.7 SEC INR Comment 1.0 0.8-1.4 Sodium Level 138 135-145 MMOL/L Potassium Level 4.2 3.6-5.0 MMOL/L Chloride Level 102 98-107 MMOL/L Carbon Dioxide Level 20 L 21-32 MMOL/L Anion Gap 16 H 5-14 MMOL/L Blood Urea Nitrogen 12 7-18 MG/DL Creatinine 0.94 0.60-1.30 MG/DL Estimat Glomerular Filtration Rate 91 BUN/Creatinine Ratio 13 Glucose Level 90 70-105 MG/DL Calcium Level 10.0 8.5-10.1 MG/DL Corrected Calcium 8.5-10.1 MG/DL Total Bilirubin 1.1 H 0.1-1.0 MG/DL Aspartate Amino Transf (AST/SGOT) 31 5-34 U/L Alanine Aminotransferase (ALT/SGPT) 21 0-55 U/L Alkaline Phosphatase 121 40-136 U/L Total Protein 7.7 6.4-8.2 GM/DL Albumin 4.6 H 3.2-4.5 GM/DL Serum Alcohol < 10 <10 MG/DL Urine Color YELLOW Urine Clarity CLEAR Urine pH 8.0 5-9 Urine Specific [place] 1.020 1.016-1.022 Urine Protein TRACE H NEGATIVE Urine Glucose (UA) NEGATIVE NEGATIVE Urine Ketones 3+ H NEGATIVE Urine Nitrite NEGATIVE NEGATIVE Urine Bilirubin NEGATIVE NEGATIVE Urine Urobilinogen 0.2 < = 1.0 MG/DL Urine Leukocyte Esterase NEGATIVE NEGATIVE Urine RBC (Auto) NEGATIVE NEGATIVE Urine RBC NONE /HPF Urine WBC NONE /HPF Urine Crystals NONE /LPF Urine Bacteria NEGATIVE /HPF Urine Casts NONE /LPF Urine Mucus NEGATIVE /LPF Urine Culture Indicated NO My Orders Orders - CED SCHUMACHER APRN Cbc With Automated Diff (08/08/21 11:08) Protime With Inr (08/08/21 11:08) Comprehensive Metabolic Panel (08/08/21 11:08) Alcohol (08/08/21 11:08) Ua Culture If Indicated (08/08/21 11:08) Ed Iv/Invasive Line Start (08/08/21 11:08) Lactated Ringers (Lr 1000 Ml Iv Solution (08/08/21 11:15) Lorazepam Injection (Ativan Injection) (08/08/21 11:15) Medications Given in ED Current Medications Medications Dose Ordered Sig/Kaiden Route Start Time Stop Time Status Last Admin Dose Admin Lorazepam 2 mg ONCE ONCE IVP 08/08/21 11:15 08/08/21 11:16 DC 08/08/21 11:22 2 MG Vital Signs/I&O 08/08/21 11:03 Temp 36.5 Pulse 94 Resp 24 B/P (MAP) 151/108 (122) Pulse Ox 100 O2 Delivery Room Air Capillary Refill : Departure Impression Primary Impression: Alcohol withdrawal Disposition: 01 HOME, SELF-CARE Condition: Stable Departure-Patient Inst. Decision time for Depature: 12:13 Referrals: [facility] (PCP/Family) Primary Care Physician Patient Instructions: Alcohol Withdrawal (DC) Add. Discharge Instructions: . Medication as directed. Return to ER for any concerns. Follow-up with your doctor next week. Scripts Lorazepam (Ativan) 1 Mg Tablet 1 MG PO Q6H PRN for ANXIETY for 7 Days, #12 TAB Prov: CED SCHUMACHER APRN 08/08/21 CED SCHUMACHER APRN Aug 08, 2021 11:14
[2021-08-08] MEDS ORDERED: LORazepam INJ 2 MG/ML (ATIVAN) VIAL IVP ONE (11:15)
[2021-08-08] MEDS ORDERED: LACTATED RINGERS 1,000 ML IV SCH (11:15)
[2021-08-08 11:18] LABS: BASOPHILS # (AUTO) 0.1 10^3/uL (0.0-0.1); BASOPHILS % (AUTO) 1 % (0-10); EOSINOPHILS # (AUTO) 0.1 10^3/uL (0.0-0.3); EOSINOPHILS % (AUTO) 1 % (0-10); HEMATOCRIT 44 % (40-54); HEMOGLOBIN 15.7 g/dL (13.3-17.7); LYMPHOCYTES # (AUTO) 1.6 10^3/uL (1.0-4.0); LYMPHOCYTES % (AUTO) 23 % (12-44); MEAN CORPUSCULAR HEMOGLOBIN 32 pg (25-34); MEAN CORPUSCULAR HGB CONC 36 g/dL (32-36); MEAN CORPUSCULAR VOLUME 89 fL (80-99); MEAN PLATELET VOLUME 8.5 fL (9.0-12.2); MONOCYTES # (AUTO) 0.5 10^3/uL (0.0-1.0); MONOCYTES % (AUTO) 7 % (0-12); NEUTROPHILS # (AUTO) 4.7 10^3/uL (1.8-7.8); NEUTROPHILS % (AUTO) 68 % (42-75); PLATELET COUNT 228 10^3/uL (130-400); WHITE BLOOD COUNT 6.9 10^3/uL (4.3-11.0)
[2021-08-08 11:37] LABS: PROTHROMBIN TIME PATIENT 13.1 SEC (12.2-14.7)
[2021-08-08 11:39] LABS: ALBUMIN 4.6 GM/DL (3.2-4.5); CHLORIDE 102 MMOL/L (98-107); POTASSIUM 4.2 MMOL/L (3.6-5.0); SODIUM 138 MMOL/L (135-145)
[2021-08-08 11:41] LABS: GLUCOSE 90 MG/DL (70-105); TOTAL PROTEIN 7.7 GM/DL (6.4-8.2)
[2021-08-08 11:42] LABS: CARBON DIOXIDE 20 MMOL/L (21-32)
[2021-08-08 11:43] LABS: BILIRUBIN,TOTAL 1.1 MG/DL (0.1-1.0)
[2021-08-08 11:45] LABS: ALKALINE PHOSPHATASE 121 U/L (40-136); CREATININE SERUM 0.94 MG/DL (0.60-1.30); GFR ESTIMATED 91
[2021-08-08 11:46] LABS: BUN/CREATININE RATIO 13
[2021-08-08 11:48] LABS: ALANINE AMINOTRANSFERASE 21 U/L (0-55)
[2021-08-08 11:57] LABS: BILIRUBIN,URINE NEGATIVE (NEGATIVE); CLARITY,URINE CLEAR; COLOR,URINE YELLOW; GLUCOSE, URINE (UA) NEGATIVE (NEGATIVE); KETONES,URINE 3+ (NEGATIVE); LEUKOCYTE ESTERASE ,URINE NEGATIVE (NEGATIVE); NITRITE,URINE NEGATIVE (NEGATIVE); PROTEIN,URINE TRACE (NEGATIVE)
[2021-08-08 12:12] LABS: BACTERIA,URINE NEGATIVE /HPF
[2021-08-08] MEDS ORDERED: LORA-405 PO (12:14)
[2021-08-08 12:26] VITALS: BP 121/83
== END 2021-08-08 12:26 | disposition home or self-care (01) ==
LOC: EDUNIT# 11:02 → ER 11:04
DX: F10.239 Alcohol dependence with withdrawal, unspecified (principal); F41.0 Panic disorder [episodic paroxysmal anxiety]; G40.909 Epilepsy, unspecified, not intractable, without status epilepticus; Z79.899 Other long term (current) drug therapy; Y90.0 Blood alcohol level of less than 20 mg/100 ml
CPT/HCPCS: 80053; 81000; 85025; 85610; 99284; G0480; 36415; 80320

== ENCOUNTER 2021-08-27 14:01 | Emergency (ER) | payer MEDICAID ==
[~2021-08-27] VITALS: Ht 180 cm; Wt 68.0 kg
[~2021-08-27 14:01] MED LIST changes: +LORA-405 PO
[2021-08-27] MEDS ORDERED: LORazepam INJ 2 MG/ML (ATIVAN) VIAL IVP ONE (14:15)
[2021-08-27] MEDS ORDERED: LACTATED RINGERS 1,000 ML IV SCH (14:15)
--- NOTE | 2021-08-27 14:17 | ED General ---
General Stated Complaint: FEVER,CHILLS,MALDONADO,CP Source of Information: Patient Exam Limitations: No Limitations (CED SCHUMACHER APRN) History of Present Illness Date Seen by Provider: Aug 27, 2021 Time Seen by Provider: 14:15 Initial Comments To ER with reports of shakiness. He denies fevers or chills or cough or shortness of breath. He is a daily drinker and last had vodka about 24 hours ago. No intention of quitting, he just ran out of money. He is here for the [employer]. Timing/Duration: 1-2 Days Severity: Moderate Associated Systoms: Headaches, Nausea/Vomiting (CED SCHUMACHER APRN) Allergies and Home Medications Allergies Coded Allergies: NKANo Known Allergies (Unverified Allergy, Mild, 10/15/09) Patient Home Medication List Home Medication List Reviewed: Yes (CED SCHUMACHER APRN) Diazepam (Valium) 10 Mg Tablet, 10 MG PO BID PRN for ANXIETY Prescribed by: CED SCHUMACHER on 08/27/21 1533 Discontinued Medications Diazepam (Valium) 10 Mg Tablet, 10 MG PO BID Discontinued Reason: No Longer Taking Prescribed by: CED SCHUMACHER on 08/27/21 1420 Last Action: Discontinued Famotidine (Pepcid) 20 Mg Tablet, 20 MG PO BID Discontinued Reason: No Longer Taking Prescribed by: SUNDAR LEONARDO on 07/23/21 0250 Last Action: Discontinued Folic Acid (Folic Acid) 1 Mg Tablet, 1 MG PO DAILY Discontinued Reason: No Longer Taking Prescribed by: CHAKA CALVILLO on 06/29/21 1319 Last Action: Discontinued Hydroxyzine Pamoate (Hydroxyzine Pamoate) 50 Mg Capsule, 50 MG PO TID Discontinued Reason: No Longer Taking Prescribed by: OCHOA DILLON on 07/01/21 1712 Last Action: Discontinued Hydroxyzine Pamoate (Vistaril) 25 Mg Capsule, 25 MG PO Q6H PRN for ANXIETY Discontinued Reason: No Longer Taking Prescribed by: ZOFIA CALERO on 07/22/21 1646 Last Action: Discontinued Lorazepam (Ativan) 0.5 Mg Tablet, 1-2 MG PO Q6H PRN for ANXIETY Discontinued Reason: No Longer Taking Prescribed by: SUNDAR LEONARDO on 07/23/21 0249 Last Action: Discontinued Lorazepam (Ativan) 1 Mg Tablet, 1 MG PO Q6H PRN for ANXIETY Discontinued Reason: No Longer Taking Prescribed by: CED SCHUMACHER on 08/08/21 1215 Last Action: Discontinued Thiamine HCl (Vitamin B-1) 100 Mg Tablet, 100 MG PO DAILY@0700 Discontinued Reason: No Longer Taking Prescribed by: CHAKA CALVILLO on 06/29/21 1319 Last Action: Discontinued Review of Systems Review of Systems Constitutional: see HPI EENTM: see HPI Respiratory: no symptoms reported Cardiovascular: no symptoms reported Genitourinary: no symptoms reported Musculoskeletal: no symptoms reported Skin: no symptoms reported Psychiatric/Neurological: See HPI, Anxiety Hematologic/Lymphatic: No Symptoms Reported Immunological/Allergic: no symptoms reported (CED SCHUMACHER APRN) Past Hptvqmv-Reenml-Bmqmmg Hx Immunizations Up To Date Tetanus Booster (TDap): Unknown First/Initial COVID19 Vaccinat: No Vaccine Second COVID19 Vaccination Bronson: No Vaccine Third COVID19 Vaccination Date: No Vaccine (CED SCHUMACHER APRN) Seasonal Allergies Seasonal Allergies: No (CED SCHUMACHER APRN) Past Medical History Surgery/Hospitalization HX: DENTAL EXTRACTIONS Surgeries: Yes (TEETH REMOVED, "FATTY TUMOR" REMOVED FROM RT CHIN/NECK) Respiratory: No Currently Using CPAP: No Currently Using BIPAP: No Cardiac: No Neurological: No Genitourinary: No Gastrointestinal: No Musculoskeletal: Yes ("BROKE HIS BACK" --NO SURGERY, PER PT ) Endocrine: No HEENT: Yes (MULTIPLE DENTAL EXTRACTIONS) Cancer: No Psychosocial: Yes (SUBSTANCE ABUSE, alcohol dependence) Integumentary: Yes Psoriasis Blood Disorders: No (CED SCHUMACHER APRN) Family Medical History No Pertinent Family Hx SOCIAL HISTORY: -ETOH--DRINKS 2 PINTS OF VODKA EVERY DAY, SOMETIMES MORE THAN THAT -DRUGS--REGULAR MARIJUANA USE -SMOKES 1 PPD (CED SCHUMACHER APRN) Physical Exam Vital Signs Vital Signs - First Documented 08/27/21 14:10 Temp 36.8 Pulse 121 Resp 16 B/P (MAP) 185/104 (131) Pulse Ox 97 O2 Delivery Room Air (OCHOA DILLON DO) Vital Signs Capillary Refill : (CED SCHUMACHER APRN) Height, Weight, BMI Height: 5'11.00" Weight: 155lbs. oz. 70.234012bb; 21.00 BMI Method:Estimated General Appearance: No Apparent Distress, WD/WN, Other (Tremors, anxious appearing) Eyes: Bilateral Eye Normal Inspection, Bilateral Eye PERRL, Bilateral Eye EOMI Neck: Full Range of Motion, Normal Inspection Cardiovascular: Normal Peripheral Pulses, Tachycardia Gastrointestinal: Normal Bowel Sounds, Non Tender, Soft Extremity: Normal Capillary Refill, Normal Inspection Neurologic/Psychiatric: Alert, Oriented x3 Skin: Normal Color, Warm/Dry (CED SCHUMACHER APRN) Progress/Results/Core Measures Suspected Sepsis SIRS Temperature: Pulse: Respiratory Rate: Laboratory Tests 08/27/21 14:17: White Blood Count 4.5 Blood Pressure / Mean: Laboratory Tests 08/27/21 14:17: Creatinine 0.83, Platelet Count 118L, Total Bilirubin 1.5H (CED SCHUMACHER APRN) Results/Orders Lab Results Laboratory Tests Test 08/27/21 14:17 Range/Units White Blood Count 4.5 4.3-11.0 10^3/uL Red Blood Count 4.35 4.30-5.52 10^6/uL Hemoglobin 14.0 13.3-17.7 g/dL Hematocrit 40 40-54 % Mean Corpuscular Volume 92 80-99 fL Mean Corpuscular Hemoglobin 32 25-34 pg Mean Corpuscular Hemoglobin Concent 35 32-36 g/dL Red Cell Distribution Width 13.2 10.0-14.5 % Platelet Count 118 L 130-400 10^3/uL Mean Platelet Volume 9.5 9.0-12.2 fL Immature Granulocyte % (Auto) 0 % Neutrophils (%) (Auto) 81 H 42-75 % Lymphocytes (%) (Auto) 11 L 12-44 % Monocytes (%) (Auto) 8 0-12 % Eosinophils (%) (Auto) 1 0-10 % Basophils (%) (Auto) 0 0-10 % Neutrophils # (Auto) 3.7 1.8-7.8 10^3/uL Lymphocytes # (Auto) 0.5 L 1.0-4.0 10^3/uL Monocytes # (Auto) 0.3 0.0-1.0 10^3/uL Eosinophils # (Auto) 0.0 0.0-0.3 10^3/uL Basophils # (Auto) 0.0 0.0-0.1 10^3/uL Immature Granulocyte # (Auto) 0.0 0.0-0.1 10^3/uL Percent Immature Platelet Fraction 3.8 0.0-7.6 % Sodium Level 135 135-145 MMOL/L Potassium Level 4.1 3.6-5.0 MMOL/L Chloride Level 100 98-107 MMOL/L Carbon Dioxide Level 20 L 21-32 MMOL/L Anion Gap 15 H 5-14 MMOL/L Blood Urea Nitrogen 12 7-18 MG/DL Creatinine 0.83 0.60-1.30 MG/DL Estimat Glomerular Filtration Rate 105 BUN/Creatinine Ratio 14 Glucose Level 74 70-105 MG/DL Calcium Level 9.3 8.5-10.1 MG/DL Corrected Calcium 9.0 8.5-10.1 MG/DL Total Bilirubin 1.5 H 0.1-1.0 MG/DL Aspartate Amino Transf (AST/SGOT) 138 H 5-34 U/L Alanine Aminotransferase (ALT/SGPT) 81 H 0-55 U/L Alkaline Phosphatase 96 40-136 U/L Total Protein 7.2 6.4-8.2 GM/DL Albumin 4.4 3.2-4.5 GM/DL (WILMAOCHOA K DO) Vital Signs/I&O 08/27/21 08/27/21 14:10 15:46 Temp 36.8 Pulse 121 90 Resp 16 16 B/P (MAP) 185/104 (131) 122/91 Pulse Ox 97 98 O2 Delivery Room Air Room Air (WILMAOCHOA Contreras DO) Vital Signs/I&O Capillary Refill : (CED SCHUMACHER APRN) Departure Communication (Admissions) He did report to the nurse after I left the room that he has some left lateral chest wall pain after he fell a few days ago. Plain films do not show any pneumothorax or broken ribs 1531-and I called dispatch to feeling a lot better after 2 mg of Ativan remains alert and oriented. States he like to quit drinking. (CED SCHUMACHER APRN) Impression Primary Impression: Alcohol withdrawal Disposition: 01 HOME, SELF-CARE Condition: Improved Departure-Patient Inst. Decision time for Depature: 14:18 (CED SCHUMACHER APRN) Referrals: [facility] (PCP/Family) Primary Care Physician Patient Instructions: Alcohol Use Disorder (DC) Scripts Diazepam (Valium) 10 Mg Tablet 10 MG PO BID PRN for ANXIETY, #4 TAB Prov: CED SCHUMACHER APRN 08/27/21 ATTENDING PHYSICIAN NOTE: I WAS PHYSICALLY PRESENT ER PHYSICIAN WHEN THIS PATIENT WAS IN ER, BUT I WAS NOT INVOLVED IN ANY DECISION MAKING OR ANY CARE OF THIS PATIENT. (OCHOA DILLON DO) CED SCHUMACHER APRN Aug 27, 2021 14:16 OCHOA DILLON DO Aug 29, 2021 12:37
[2021-08-27] MEDS ORDERED: DIAZ10TA PO ×2 (14:19→15:32)
[2021-08-27 14:24] LABS: MEAN CORPUSCULAR VOLUME 92 fL (80-99)
[2021-08-27 14:26] LABS: BASOPHILS % (AUTO) 0 % (0-10); EOSINOPHILS % (AUTO) 1 % (0-10); HEMATOCRIT 40 % (40-54); LYMPHOCYTES # (AUTO) 0.5 10^3/uL (1.0-4.0); LYMPHOCYTES % (AUTO) 11 % (12-44); MEAN CORPUSCULAR HEMOGLOBIN 32 pg (25-34); MEAN CORPUSCULAR HGB CONC 35 g/dL (32-36); MEAN PLATELET VOLUME 9.5 fL (9.0-12.2); MONOCYTES # (AUTO) 0.3 10^3/uL (0.0-1.0); MONOCYTES % (AUTO) 8 % (0-12); NEUTROPHILS # (AUTO) 3.7 10^3/uL (1.8-7.8); NEUTROPHILS % (AUTO) 81 % (42-75); PLATELET COUNT 118 10^3/uL (130-400); WHITE BLOOD COUNT 4.5 10^3/uL (4.3-11.0)
[2021-08-27 14:31] LABS: ALBUMIN 4.4 GM/DL (3.2-4.5)
[2021-08-27 14:32] LABS: POTASSIUM 4.1 MMOL/L (3.6-5.0)
[2021-08-27 14:33] LABS: CALCIUM 9.3 MG/DL (8.5-10.1)
[2021-08-27 14:34] LABS: TOTAL PROTEIN 7.2 GM/DL (6.4-8.2)
[2021-08-27 14:36] LABS: BILIRUBIN,TOTAL 1.5 MG/DL (0.1-1.0)
[2021-08-27 14:37] LABS: CREATININE SERUM 0.83 MG/DL (0.60-1.30)
[2021-08-27 15:46] VITALS: BP 122/91
--- NOTE | 2021-08-27 18:19 | Diagnostic Imaging Report ---
INDICATION: Left rib pain. TIME OF EXAM: 3:01 PM. FINDINGS: Three views of the left ribs were obtained. No displaced rib fracture seen. No parenchymal contusion, effusion or pneumothorax is detected. IMPRESSION: No acute abnormality is detected. Dictated by: Dictated on workstation # [id number]
== END 2021-08-27 15:46 | disposition home or self-care (01) ==
LOC: EDUNIT# 14:01 → ER 14:03
DX: F10.239 Alcohol dependence with withdrawal, unspecified (principal)
CPT/HCPCS: 36415; 71100; 80053; 85025

== ENCOUNTER 2021-09-12 11:46 | Emergency (ER) | payer MEDICAID ==
[~2021-09-12] VITALS: Ht 180.3 cm; Wt 68.0 kg
[~2021-09-12 11:46] MED LIST changes: +DIAZ10TA PO
[2021-09-12] MEDS ORDERED: CLN.1T PO (11:51)
[2021-09-12] MEDS ORDERED: LORA-407 PO (11:51)
--- NOTE | 2021-09-12 11:52 | ED General ---
General Stated Complaint: ETOH WITHDRAWAL Source of Information: Patient, EMS Exam Limitations: No Limitations History of Present Illness Date Seen by Provider: Sep 12, 2021 Time Seen by Provider: 11:49 Initial Comments To ER by EMS from home with reports of EtOH withdrawal. He is a daily drinker but ran out of alcohol 2 days ago. Does not intend to quit, just does not have a job and subsequently does not have money for alcohol. States that he was at home and started having a panic attack and anxiety as he was home alone. Timing/Duration: 1-2 Days Severity: Moderate Associated Systoms: Denies Symptoms Allergies and Home Medications Allergies Coded Allergies: NKANo Known Allergies (Unverified Allergy, Mild, 10/15/09) Patient Home Medication List Home Medication List Reviewed: Yes Clonidine HCl (Clonidine HCl) 0.1 Mg Tablet, 0.1 MG PO BID Prescribed by: CED SCHUMACHER on 09/12/21 1151 Diazepam (Valium) 10 Mg Tablet, 10 MG PO BID PRN for ANXIETY Prescribed by: CED SCHUMACHER on 08/27/21 1533 Lorazepam (Ativan) 2 Mg Tablet, 2 MG PO Q6H PRN for ANXIETY Prescribed by: CED SCHUMACHER on 09/12/21 1152 Review of Systems Review of Systems Constitutional: see HPI EENTM: see HPI Respiratory: no symptoms reported Cardiovascular: no symptoms reported Genitourinary: no symptoms reported Musculoskeletal: no symptoms reported Skin: no symptoms reported Psychiatric/Neurological: See HPI, Anxiety Hematologic/Lymphatic: No Symptoms Reported Past Svohjsk-Hkxwkr-Fcclog Hx Immunizations Up To Date Tetanus Booster (TDap): Unknown First/Initial COVID19 Vaccinat: No Vaccine Second COVID19 Vaccination Bronson: No Vaccine Third COVID19 Vaccination Date: No Vaccine Seasonal Allergies Seasonal Allergies: No Past Medical History Surgery/Hospitalization HX: DENTAL EXTRACTIONS Surgeries: Yes (TEETH REMOVED, "FATTY TUMOR" REMOVED FROM RT CHIN/NECK) Respiratory: No Currently Using CPAP: No Currently Using BIPAP: No Cardiac: No Neurological: No Genitourinary: No Gastrointestinal: No Musculoskeletal: Yes ("BROKE HIS BACK" --NO SURGERY, PER PT ) Endocrine: No HEENT: Yes (MULTIPLE DENTAL EXTRACTIONS) Cancer: No Psychosocial: Yes (SUBSTANCE ABUSE, alcohol dependence) Integumentary: Yes Psoriasis Blood Disorders: No Family Medical History No Pertinent Family Hx SOCIAL HISTORY: -ETOH--DRINKS 2 PINTS OF VODKA EVERY DAY, SOMETIMES MORE THAN THAT -DRUGS--REGULAR MARIJUANA USE -SMOKES 1 PPD Physical Exam Vital Signs Vital Signs - First Documented 09/12/21 11:47 Temp 36.5 Pulse 89 Resp 22 B/P (MAP) 120/94 (103) Pulse Ox 99 O2 Delivery Room Air Capillary Refill : Height, Weight, BMI Height: 5'11.00" Weight: 155lbs. oz. 70.213408pf; 20.00 BMI Method:Estimated General Appearance: No Apparent Distress, WD/WN Eyes: Bilateral Eye Normal Inspection, Bilateral Eye PERRL, Bilateral Eye EOMI HEENT: PERRL/EOMI, TMs Normal Neck: Full Range of Motion, Normal Inspection Respiratory: No Accessory Muscle Use, No Respiratory Distress Cardiovascular: Normal Peripheral Pulses, Tachycardia Gastrointestinal: Normal Bowel Sounds, Non Tender, Soft Extremity: Normal Capillary Refill, Normal Inspection Neurologic/Psychiatric: Alert, Oriented x3 Progress/Results/Core Measures Suspected Sepsis SIRS Temperature: Pulse: Respiratory Rate: Laboratory Tests 09/12/21 11:50: White Blood Count 6.4 Blood Pressure / Mean: Laboratory Tests 09/12/21 11:50: Creatinine 0.92, INR Comment 0.9, Platelet Count 293, Total Bilirubin 0.7 Results/Orders Lab Results Laboratory Tests Test 09/12/21 11:50 Range/Units White Blood Count 6.4 4.3-11.0 10^3/uL Red Blood Count 4.69 4.30-5.52 10^6/uL Hemoglobin 15.0 13.3-17.7 g/dL Hematocrit 44 40-54 % Mean Corpuscular Volume 94 80-99 fL Mean Corpuscular Hemoglobin 32 25-34 pg Mean Corpuscular Hemoglobin Concent 34 32-36 g/dL Red Cell Distribution Width 13.9 10.0-14.5 % Platelet Count 293 130-400 10^3/uL Mean Platelet Volume 8.6 L 9.0-12.2 fL Immature Granulocyte % (Auto) 0 % Neutrophils (%) (Auto) 73 42-75 % Lymphocytes (%) (Auto) 18 12-44 % Monocytes (%) (Auto) 7 0-12 % Eosinophils (%) (Auto) 1 0-10 % Basophils (%) (Auto) 1 0-10 % Neutrophils # (Auto) 4.7 1.8-7.8 10^3/uL Lymphocytes # (Auto) 1.2 1.0-4.0 10^3/uL Monocytes # (Auto) 0.5 0.0-1.0 10^3/uL Eosinophils # (Auto) 0.0 0.0-0.3 10^3/uL Basophils # (Auto) 0.0 0.0-0.1 10^3/uL Immature Granulocyte # (Auto) 0.0 0.0-0.1 10^3/uL Prothrombin Time 13.0 12.2-14.7 SEC INR Comment 0.9 0.8-1.4 Sodium Level 143 135-145 MMOL/L Potassium Level 3.7 3.6-5.0 MMOL/L Chloride Level 102 98-107 MMOL/L Carbon Dioxide Level 24 21-32 MMOL/L Anion Gap 17 H 5-14 MMOL/L Blood Urea Nitrogen 10 7-18 MG/DL Creatinine 0.92 0.60-1.30 MG/DL Estimat Glomerular Filtration Rate 94 BUN/Creatinine Ratio 11 Glucose Level 88 70-105 MG/DL Calcium Level 9.6 8.5-10.1 MG/DL Corrected Calcium 9.3 8.5-10.1 MG/DL Total Bilirubin 0.7 0.1-1.0 MG/DL Aspartate Amino Transf (AST/SGOT) 48 H 5-34 U/L Alanine Aminotransferase (ALT/SGPT) 35 0-55 U/L Alkaline Phosphatase 123 40-136 U/L Total Protein 7.6 6.4-8.2 GM/DL Albumin 4.4 3.2-4.5 GM/DL Serum Alcohol 49 H <10 MG/DL My Orders Orders - CED SCHUMACHER MATERIAL RECLAIMER Cbc With Automated Diff (09/12/21 11:49) Comprehensive Metabolic Panel (09/12/21 11:49) Alcohol (09/12/21 11:49) Protime With Inr (09/12/21 11:49) Ed Iv/Invasive Line Start (09/12/21 11:49) Lactated Ringers (Lr 1000 Ml Iv Solution (09/12/21 12:00) Lorazepam Injection (Ativan Injection) (09/12/21 12:00) Clonidine Tablet (Catapres Tablet) (09/12/21 12:00) Medications Given in ED Current Medications Medications Dose Ordered Sig/Kaiden Route Start Time Stop Time Status Last Admin Dose Admin Clonidine HCl 0.1 mg ONCE ONCE PO 09/12/21 12:00 09/12/21 12:01 DC 09/12/21 11:58 0.1 MG Lorazepam 2 mg ONCE ONCE IVP 09/12/21 12:00 09/12/21 12:01 DC 09/12/21 11:57 2 MG Vital Signs/I&O 09/12/21 11:47 Temp 36.5 Pulse 89 Resp 22 B/P (MAP) 120/94 (103) Pulse Ox 99 O2 Delivery Room Air Capillary Refill : Departure Communication (Admissions) 1233-feeling better at this time, less anxious, remains alert and oriented very pleasant no delirium no hallucinations hemodynamically stable. Will discharge to home. He is not suicidal or homicidal. Give him a short course of benzos until he can resume alcohol intake. Impression Primary Impression: Alcohol withdrawal Disposition: HOME, SELF-CARE Condition: Stable Departure-Patient Inst. Decision time for Depature: 11:51 Referrals: [facility] [place] Primary Care Physician Patient Instructions: Alcohol Withdrawal Scripts Clonidine HCl (Clonidine HCl) 0.1 Mg Tablet 0.1 MG PO BID, #4 TAB Prov: CED SCHUMACHER MATERIAL RECLAIMER 09/12/21 Lorazepam (Ativan) 2 Mg Tablet 2 MG PO Q6H PRN for ANXIETY for 7 Days, #10 TAB Prov: CED SCHUMACHER MATERIAL RECLAIMER 09/12/21 CED SCHUMACHER MATERIAL RECLAIMER Sep 12, 2021 11:52
[2021-09-12] MEDS ORDERED: cloNIDine 0.1 MG (CATAPRES) TAB PO ONE (12:00)
[2021-09-12] MEDS ORDERED: LORazepam INJ 2 MG/ML (ATIVAN) VIAL IVP ONE (12:00)
[2021-09-12] MEDS ORDERED: LACTATED RINGERS 1,000 ML IV SCH (12:00)
[2021-09-12 12:02] LABS: BASOPHILS % (AUTO) 1 % (0-10); EOSINOPHILS % (AUTO) 1 % (0-10); HEMATOCRIT 44 % (40-54); LYMPHOCYTES # (AUTO) 1.2 10^3/uL (1.0-4.0); LYMPHOCYTES % (AUTO) 18 % (12-44); MEAN CORPUSCULAR HEMOGLOBIN 32 pg (25-34); MEAN CORPUSCULAR HGB CONC 34 g/dL (32-36); MEAN CORPUSCULAR VOLUME 94 fL (80-99); MEAN PLATELET VOLUME 8.6 fL (9.0-12.2); MONOCYTES # (AUTO) 0.5 10^3/uL (0.0-1.0); MONOCYTES % (AUTO) 7 % (0-12); NEUTROPHILS # (AUTO) 4.7 10^3/uL (1.8-7.8); NEUTROPHILS % (AUTO) 73 % (42-75); PLATELET COUNT 293 10^3/uL (130-400); WHITE BLOOD COUNT 6.4 10^3/uL (4.3-11.0)
[2021-09-12 12:12] LABS: ALBUMIN 4.4 GM/DL (3.2-4.5); INR 0.9 (0.8-1.4); POTASSIUM 3.7 MMOL/L (3.6-5.0)
[2021-09-12 12:14] LABS: CALCIUM 9.6 MG/DL (8.5-10.1)
[2021-09-12 12:15] LABS: TOTAL PROTEIN 7.6 GM/DL (6.4-8.2)
[2021-09-12 12:17] LABS: BILIRUBIN,TOTAL 0.7 MG/DL (0.1-1.0)
[2021-09-12 12:19] LABS: CREATININE SERUM 0.92 MG/DL (0.60-1.30)
[2021-09-12 12:39] VITALS: BP 123/80
== END 2021-09-12 12:39 | disposition home or self-care (01) ==
LOC: EDUNIT# 11:46 → ER 11:48
DX: F10.239 Alcohol dependence with withdrawal, unspecified (principal); F41.9 Anxiety disorder, unspecified; Z79.899 Other long term (current) drug therapy
CPT/HCPCS: 80053; 85025; 85610; 99284; G0480; 36415; 80320

== ENCOUNTER 2021-09-21 13:25 | Emergency (ER) | payer MEDICAID ==
[~2021-09-21] VITALS: Ht 180 cm; Wt 68.0 kg
[~2021-09-21 13:25] MED LIST changes: +CLN.1T PO; +LORA-407 PO
--- NOTE | 2021-09-21 13:36 | ED Psychosocial ---
General Chief Complaint: Substance Abuse Stated Complaint: ANXIETY Source: patient Exam Limitations: no limitations (BABS SCHNEIDER APRN) History of Present Illness Date Seen by Provider: Sep 21, 2021 Time Seen by Provider: 13:24 Initial Comments This is a 35-year-old male presented to the ER via [facility] with complaints of anxiety with panic. States that he has a history of panic attacks and felt one coming on at the [facility]. States that he has been out of his Ativan and would like to be seen in the emergency room due to his severe anxiety and lack of his home medication. No other symptoms. (BABS SCHNEIDER APRN) Allergies and Home Medications Allergies Coded Allergies: NKANo Known Allergies (Unverified Allergy, Mild, 10/15/09) Patient Home Medication List Home Medication List Reviewed: Yes (BABS SCHNEIDER APRN) Clonidine HCl (Clonidine HCl) 0.1 Mg Tablet, 0.1 MG PO BID Prescribed by: CED SCHUMACHER on 09/12/21 1151 Diazepam (Valium) 10 Mg Tablet, 10 MG PO BID PRN for ANXIETY Prescribed by: CED SCHUMACHER on 08/27/21 1533 Lorazepam (Ativan) 2 Mg Tablet, 2 MG PO Q6H PRN for ANXIETY Prescribed by: CED SCHUMACHER on 09/12/21 1152 Lorazepam (Ativan) 2 Mg Tablet, 2 MG PO Q6H PRN for ANXIETY Prescribed by: BABS SCHNEIDER on 09/21/21 1429 Review of Systems Constitutional: see HPI EENTM: no symptoms reported Respiratory: no symptoms reported Cardiovascular: see HPI Gastrointestinal: no symptoms reported Genitourinary: no symptoms reported Musculoskeletal: no symptoms reported Skin: no symptoms reported Psychiatric/Neurological: No Symptoms Reported (BABS SCHNEIDER APRN) Past Izduufx-Jgzmxn-Fbtzac Hx Immunizations Up To Date Tetanus Booster (TDap): Unknown First/Initial COVID19 Vaccinat: No Vaccine Second COVID19 Vaccination Bronson: No Vaccine Third COVID19 Vaccination Date: No Vaccine (BABS SCHNEIDER APRN) Seasonal Allergies Seasonal Allergies: No (BABS SCHNEIDER APRN) Past Medical History Surgery/Hospitalization HX: DENTAL EXTRACTIONS Surgeries: Yes (TEETH REMOVED, "FATTY TUMOR" REMOVED FROM RT CHIN/NECK) Respiratory: No Currently Using CPAP: No Currently Using BIPAP: No Cardiac: No Neurological: No Genitourinary: No Gastrointestinal: No Musculoskeletal: Yes ("BROKE HIS BACK" --NO SURGERY, PER PT ) Endocrine: No HEENT: Yes (MULTIPLE DENTAL EXTRACTIONS) Cancer: No Psychosocial: Yes (SUBSTANCE ABUSE, alcohol dependence) Integumentary: Yes Psoriasis Blood Disorders: No (BABS SCHNEIDER APRN) Family Medical History No Pertinent Family Hx SOCIAL HISTORY: -ETOH--DRINKS 2 PINTS OF VODKA EVERY DAY, SOMETIMES MORE THAN THAT -DRUGS--REGULAR MARIJUANA USE -SMOKES 1 PPD (BABS SCHNEIDER APRN) Physical Exam Vital Signs - First Documented 09/21/21 13:27 Temp 36.8 Pulse 62 Resp 20 B/P (MAP) 123/87 (99) Pulse Ox 98 O2 Delivery Room Air (SUNDAR LLOYD MD) Capillary Refill : (BABS SCHNEIDER APRN) Height, Weight, BMI Height: 5'11.00" Weight: 155lbs. oz. 70.051999gw; 20.00 BMI Method:Estimated General Appearance: WD/WN, no apparent distress HEENT: PERRL/EOMI, TMs normal Neck: full range of motion, normal inspection Respiratory: lungs clear, normal breath sounds, no accessory muscle use Cardiovascular: regular rate, rhythm, no murmur Gastrointestinal: normal bowel sounds, non tender, soft Extremities: normal range of motion, normal inspection Neurologic/Psychiatric: no motor/sensory deficits, alert, normal mood/affect, oriented x 3 Appearance/Memory: appropriate appearance, appropriate insight, no memory impairment Behavior/Eye Contact: cooperative, good eye contact, normal speech Thoughts/Hallucinations: normal thought pattern Skin: normal color, warm/dry (BABS SCHNEIDER APRN) Progress/Results/Core Measures Initial ECG Impression Date: Sep 21, 2021 Initial ECG Impression Time: 13:33 Initial ECG Rate: 65 Initial ECG Rhythm: Normal Sinus Initial ECG Intervals: Normal Initial ECG Impression: Nonspecific Changes Initial ECG Comparisson: Unchanged (BABS SCHNEIDER APRN) Departure Impression Primary Impression: Panic attack Disposition: HOME, SELF-CARE Condition: Improved Departure-Patient Inst. Decision time for Depature: 14:26 (BABS SCHNEIDER APRN) [facility]errals: [facility] ([facility]P/Family) Primary Care Physician Patient Instructions: ALCOHOL AND SUBSTANCE ABUSE, Anxiety, Adult ED Add. Discharge Instructions: Plan: 1. Establish with primary care provider. 2. Take Ativan 2mg by mouth every 6 hours as needed. 3. Return for any new, concerning, or worsening symptoms. All discharge instructions reviewed with patient and/or family. Voiced understanding. Scripts Lorazepam (Ativan) 2 Mg Tablet 2 MG PO Q6H PRN for ANXIETY for 7 Days, #20 TAB 0 Refills Prov: BABS SCHNEIDER EDITOR DEPARTMENT 09/21/21 ATTENDING PHYSICIAN NOTE: I was physically present as attending physician in the emergency department during the care of this patient, but I was not directly involved in the decision making or delivery of care for this patient. (SUNDAR LLOYD MD) BABS SCHNEIDER EDITOR DEPARTMENT Sep 21, 2021 13:36 SUNDAR LLOYD MD Sep 27, 2021 06:55
[2021-09-21] MEDS ORDERED: LORazepam 1 MG (ATIVAN) TAB PO ONE (13:45)
[2021-09-21] MEDS ORDERED: LORA-407 PO (14:28)
[2021-09-21 14:46] VITALS: BP 122/85
== END 2021-09-21 14:47 | disposition home or self-care (01) ==
LOC: EDUNIT# 13:25 → ER 13:26
DX: F41.0 Panic disorder [episodic paroxysmal anxiety] (principal)
CPT/HCPCS: 93005

== ENCOUNTER 2021-10-18 23:37 | Emergency (ER) | payer MEDICAID ==
[2021-10-19] MEDS ORDERED: LORazepam INJ 2 MG/ML (ATIVAN) VIAL IVP STA
[2021-10-19] MEDS ORDERED: ONDANSETRON 4 MG/2 ML (SDV) Z0FRAN IVP ONE
--- NOTE | 2021-10-19 00:06 | ED Chest Pain ---
General Stated Complaint: ALCOHOL WITHDRAWS Source: patient Exam Limitations: no limitations History of Present Illness Date Seen by Provider: Oct 19, 2021 Time Seen by Provider: 00:01 Initial Comments Patient is a 35-year-old male who presents to the emergency room with a chief complaint of chest tightness, shakiness, nausea, agitation. He is trying to c ome down off alcohol. He thinks he had a little bit of a panic attack earlier this evening. He goes to [facility] for his primary care and has an appointment on Tuesday to be evaluated for a therapist. He drinks alcohol heavily up to a liter a day. His last drink of alcohol was sometime on Tuesday he is not clear of the timeframe. He is tried multiple times to quit alcohol. He is not currently having hallucinations, no thoughts of self-harm, suicidal or homicidal ideation. No chronic medical conditions. Not diabetic, no hypertension. No recent illnesses, fevers, chills, URI symptoms. No productive cough or shortness of breath. No problems with bowel or bladder. All other review of systems reviewed and negative except as stated. Timing/Duration: 4-6 hours, getting worse Severity/Quality: moderate Location: central ("tightness") Radiation: no radiation Activities at Onset: none ASA po MATERIAL ASSISTANT: No NTG SL MATERIAL ASSISTANT: No Associated Symptoms: fever/chills ("cold sweats"), nausea/vomiting Allergies and Home Medications Allergies Coded Allergies: NKANo Known Allergies (Unverified Allergy, Mild, 10/15/09) Patient Home Medication List Home Medication List Reviewed: Yes Clonidine HCl (Clonidine HCl) 0.1 Mg Tablet, 0.1 MG PO BID Prescribed by: CED SCHUMACHER on 09/12/21 1151 Diazepam (Valium) 10 Mg Tablet, 10 MG PO BID PRN for ANXIETY Prescribed by: CED SCHUMACHER on 08/27/21 1533 Lorazepam (Ativan) 2 Mg Tablet, 2 MG PO Q6H PRN for ANXIETY Prescribed by: CED SCHUMACHER on 09/12/21 1152 Lorazepam (Ativan) 2 Mg Tablet, 2 MG PO Q6H PRN for ANXIETY Prescribed by: BABS SCHENIDER on 09/21/21 1422 Review of Systems Review of Systems Constitutional: see HPI, malaise EENTM: No Symptoms Reported Respiratory: No Symptoms Reported Cardiovascular: Chest Pain Gastrointestinal: Nausea, Poor Appetite Genitourinary: No Symptoms Reported Musculoskeletal: no symptoms reported Psychiatric/Neurological: Anxiety, Depressed, Emotional Problems, Tremors, Weakness (generalized) All Other Systems Reviewed Negative Unless Noted: Yes Past [place]-Cltuse-Fxtnta Hx Immunizations Up To Date Tetanus Booster (TDap): Unknown First/Initial COVID19 Vaccinat: No Vaccine Second COVID19 Vaccination Bronson: No Vaccine Third COVID19 Vaccination Date: No Vaccine Seasonal Allergies Seasonal Allergies: No Past Medical History Surgery/Hospitalization HX: DENTAL EXTRACTIONS Surgeries: Yes (TEETH REMOVED, "FATTY TUMOR" REMOVED FROM RT CHIN/NECK) Respiratory: No Currently Using CPAP: No Currently Using BIPAP: No Cardiac: No Neurological: No Genitourinary: No Gastrointestinal: No Musculoskeletal: Yes ("BROKE HIS BACK" --NO SURGERY, PER PT ) Endocrine: No HEENT: Yes (MULTIPLE DENTAL EXTRACTIONS) Cancer: No Psychosocial: Yes (SUBSTANCE ABUSE, alcohol dependence) Integumentary: Yes Psoriasis Blood Disorders: No Family Medical History No Pertinent Family Hx SOCIAL HISTORY: -ETOH--DRINKS 2 PINTS OF VODKA EVERY DAY, SOMETIMES MORE THAN THAT -DRUGS--REGULAR MARIJUANA USE -SMOKES 1 PPD Physical Exam Vital Signs Vital Signs - First Documented 10/18/21 23:40 Temp 36.2 Pulse 102 Resp 22 B/P (MAP) 138/112 (121) Pulse Ox 98 O2 Delivery Room Air Capillary Refill : Height, Weight, BMI Height: 5'11.00" Weight: 155lbs. oz. 70.905307vk; 20.00 BMI Method:Estimated General Appearance: WD/WN, Anxious (mild) HEENT: PERRL/EOMI Neck: Normal Inspection Respiratory: Lungs Clear, Normal Breath Sounds, No Accessory Muscle Use, No Respiratory Distress Cardiovascular: Regular Rate, Rhythm (80's), Normal Peripheral Pulses Gastrointestinal: Normal Bowel Sounds, Non Tender, Soft Extremity: Normal Capillary Refill, Normal Inspection, Normal Range of Motion, Non Tender, No Pedal Edema Neurologic/Psychiatric: Alert, Oriented x3, No Motor/Sensory Deficits, computer tester II- XII Norm as Tested, Other (anxious, flat affect. depressed mood.) Skin: Normal Color, Warm/Dry Progress/Results/Core Measures Results/Orders Lab Results Laboratory Tests Test 10/19/21 00:00 Range/Units White Blood Count 2.9 L 4.3-11.0 10^3/uL Red Blood Count 4.32 4.30-5.52 10^6/uL Hemoglobin 13.9 13.3-17.7 g/dL Hematocrit 39 L 40-54 % Mean Corpuscular Volume 91 80-99 fL Mean Corpuscular Hemoglobin 32 25-34 pg Mean Corpuscular Hemoglobin Concent 35 32-36 g/dL Red Cell Distribution Width 13.1 10.0-14.5 % Platelet Count 77 L 130-400 10^3/uL Mean Platelet Volume 9.7 9.0-12.2 fL Immature Granulocyte % (Auto) 0 % Neutrophils (%) (Auto) 57 42-75 % Lymphocytes (%) (Auto) 28 12-44 % Monocytes (%) (Auto) 12 0-12 % Eosinophils (%) (Auto) 2 0-10 % Basophils (%) (Auto) 1 0-10 % Neutrophils # (Auto) 1.7 L 1.8-7.8 10^3/uL Lymphocytes # (Auto) 0.8 L 1.0-4.0 10^3/uL Monocytes # (Auto) 0.4 0.0-1.0 10^3/uL Eosinophils # (Auto) 0.1 0.0-0.3 10^3/uL Basophils # (Auto) 0.0 0.0-0.1 10^3/uL Immature Granulocyte # (Auto) 0.0 0.0-0.1 10^3/uL Neutrophils % (Manual) 59 % Lymphocytes % (Manual) 32 % Monocytes % (Manual) 8 % Eosinophils % (Manual) 1 % Blood Morphology Comment NORMAL Sodium Level 140 135-145 MMOL/L Potassium Level 2.9 L 3.6-5.0 MMOL/L Chloride Level 101 98-107 MMOL/L Carbon Dioxide Level 16 L 21-32 MMOL/L Anion Gap 23 H 5-14 MMOL/L Blood Urea Nitrogen 7 7-18 MG/DL Creatinine 0.84 0.60-1.30 MG/DL Estimat Glomerular Filtration Rate 117 BUN/Creatinine Ratio 8 Glucose Level 78 70-105 MG/DL Calcium Level 8.8 8.5-10.1 MG/DL Corrected Calcium 8.6 8.5-10.1 MG/DL Total Bilirubin 0.7 0.1-1.0 MG/DL Aspartate Amino Transf (AST/SGOT) 95 H 5-34 U/L Alanine Aminotransferase (ALT/SGPT) 81 H 0-55 U/L Alkaline Phosphatase 101 40-136 U/L Troponin I < 0.028 <0.028 NG/ML Total Protein 6.9 6.4-8.2 GM/DL Albumin 4.2 3.2-4.5 GM/DL Serum Alcohol 274 H <10 MG/DL My Orders Orders - MALIK HENLEY MD Ed Iv/Invasive Line Start (10/19/21 00:00) Ekg Tracing (10/19/21 00:00) Chest 1 View, Ap/Pa Only (10/19/21 00:00) Cbc And Manual Diff (10/19/21 00:00) Comprehensive Metabolic Panel (10/19/21 00:00) Alcohol (10/19/21 00:00) Ondansetron Injection (Zofran Injectio (10/19/21 00:00) Lorazepam Injection (Ativan Injection) (10/19/21 00:00) Troponin I [place] (10/19/21:22) Medications Given in ED Current Medications Medications Dose Ordered Sig/Kaiden Route Start Time Stop Time Status Last Admin Dose Admin Ondansetron HCl 4 mg ONCE ONCE IVP 10/19/21 00:00 10/19/21 00:01 DC 10/19/21 00:32 4 MG Vital Signs/I&O 10/18/21 23:40 Temp 36.2 Pulse 102 Resp 22 B/P (MAP) 138/112 (121) Pulse Ox 98 O2 Delivery Room Air Progress Progress Note : Time: 02:45 Progress Note Patient reassessed after medications, feels "a lot more relaxed". Has been sipping fluids/water here in the emergency department. No nausea vomiting. He does have slightly low potassium likely secondary to poor nutrition while he is drinking. He does have elevated liver functions. He is a little bit dry due to his alcohol use. His alcohol level is about 270. This in the setting of telling me he had not had any alcohol in 24 hours. I talked to him about [facility]. He is going to have his evaluation on Tuesday. I stressed to him the importance of staying away from alcohol. He verbalized understanding. All questions are sought and answered Initial ECG Impression Date: Oct 18, 2021 Initial ECG Impression Time: 23:48 Initial ECG Rate: 80 Initial ECG Rhythm: Normal Sinus Initial ECG Intervals: Normal Initial ECG Impression: Normal Diagnostic Imaging Diagonstic Imaging: Xray Plain Films/CT/US/NM/MRI: chest Comments Normal mediastinum, normal cardiac silhouette, no effusions or infiltrates, normal bony thorax --interpreted by me Departure Impression Primary Impression: Alcohol intoxication Qualified Codes: F10.920 - Alcohol use, unspecified with intoxication, uncomplicated Additional Impression: Alcohol abuse Disposition: 01 HOME, SELF-CARE Condition: Stable Departure-Patient Inst. Decision time for Depature: 02:47 Referrals: [facility] (PCP/Family) Primary Care Physician Patient Instructions: Alcohol Use Disorder (DC) Add. Discharge Instructions: Nausea medications every 8 hours as needed. Try and stay away from the alcohol. Keep your appointment with [facility] for Tuesday. I am giving you contact information also for [facility]. You can call them also to inquire about detox and rehab. [address] [place] [phone] Return to the emergency room for any new, concerning or emergent complaints. Scripts Ondansetron (Ondansetron Odt) 8 Mg Tab.rapdis 8 MG PO Q8H PRN for nausea, #12 TAB Prov: MALIK HENLEY MD 10/19/21 MALIK HENLEY MD Oct 19, 2021 00:06
[2021-10-19 00:08] LABS: BASOPHILS % (AUTO) 1 % (0-10); EOSINOPHILS # (AUTO) 0.1 10^3/uL (0.0-0.3); EOSINOPHILS % (AUTO) 2 % (0-10); HEMATOCRIT 39 % (40-54); HEMOGLOBIN 13.9 g/dL (13.3-17.7); LYMPHOCYTES # (AUTO) 0.8 10^3/uL (1.0-4.0); LYMPHOCYTES % (AUTO) 28 % (12-44); MEAN CORPUSCULAR HEMOGLOBIN 32 pg (25-34); MEAN CORPUSCULAR HGB CONC 35 g/dL (32-36); MEAN CORPUSCULAR VOLUME 91 fL (80-99); MEAN PLATELET VOLUME 9.7 fL (9.0-12.2); MONOCYTES # (AUTO) 0.4 10^3/uL (0.0-1.0); MONOCYTES % (AUTO) 12 % (0-12); NEUTROPHILS # (AUTO) 1.7 10^3/uL (1.8-7.8); NEUTROPHILS % (AUTO) 57 % (42-75); PLATELET COUNT 77 10^3/uL (130-400); WHITE BLOOD COUNT 2.9 10^3/uL (4.3-11.0)
[2021-10-19 00:25] LABS: ALBUMIN 4.2 GM/DL (3.2-4.5); CHLORIDE 101 MMOL/L (98-107); POTASSIUM 2.9 MMOL/L (3.6-5.0); SODIUM 140 MMOL/L (135-145)
[2021-10-19 00:26] LABS: CALCIUM 8.8 MG/DL (8.5-10.1)
[2021-10-19 00:27] LABS: GLUCOSE 78 MG/DL (70-105); TOTAL PROTEIN 6.9 GM/DL (6.4-8.2)
[2021-10-19 00:28] LABS: CARBON DIOXIDE 16 MMOL/L (21-32)
[2021-10-19 00:29] LABS: BILIRUBIN,TOTAL 0.7 MG/DL (0.1-1.0)
[2021-10-19 00:31] LABS: ALKALINE PHOSPHATASE 101 U/L (40-136); CREATININE SERUM 0.84 MG/DL (0.60-1.30); GFR ESTIMATED 117
[2021-10-19 00:32] LABS: BUN/CREATININE RATIO 8
[2021-10-19 00:34] LABS: ALANINE AMINOTRANSFERASE 81 U/L (0-55)
[2021-10-19 00:50] LABS: EOSINOPHILS % (MANUAL) 1 %; LYMPHOCYTES % (MANUAL) 32 %; MONOCYTES % (MANUAL) 8 %; NEUTROPHILS % (MANUAL) 59 %; RBC MORPH NORMAL
[2021-10-19] MEDS ORDERED: ONDA8TAB13 PO (02:59)
[2021-10-19 03:01] VITALS: BP 118/87
--- NOTE | 2021-10-19 06:45 | Diagnostic Imaging Report ---
EXAM: CHEST 1 VIEW, AP/PA ONLY INDICATION: Chest pain. COMPARISON: 07/23/2021. FINDINGS: Normal heart size and central pulmonary vascularity. No focal pulmonary opacity. No pleural effusion or pneumothorax. No acute osseous findings. IMPRESSION: No acute cardiopulmonary findings. Dictated by: Dictated on workstation # [id number]
== END 2021-10-19 03:05 | disposition home or self-care (01) ==
LOC: EDUNIT# 23:37 → ER 23:38
DX: F10.129 Alcohol abuse with intoxication, unspecified (principal)
CPT/HCPCS: 71045; 80053; 84484; 85007; 85027; 93005; 99284; G0480; 36415; 80320

== ENCOUNTER 2021-10-21 21:18 | Emergency (ER) | payer MEDICAID ==
[~2021-10-21] VITALS: Ht 178 cm; Wt 68.0 kg
[~2021-10-21 21:18] MED LIST changes: +ONDA8TAB13 PO
[2021-10-21 21:32] LABS: BASOPHILS % (AUTO) 1 % (0-10); EOSINOPHILS # (AUTO) 0.1 10^3/uL (0.0-0.3); EOSINOPHILS % (AUTO) 2 % (0-10); HEMATOCRIT 46 % (40-54); HEMOGLOBIN 16.3 g/dL (13.3-17.7); LYMPHOCYTES # (AUTO) 1.5 10^3/uL (1.0-4.0); LYMPHOCYTES % (AUTO) 37 % (12-44); MEAN CORPUSCULAR HEMOGLOBIN 32 pg (25-34); MEAN CORPUSCULAR HGB CONC 36 g/dL (32-36); MEAN CORPUSCULAR VOLUME 90 fL (80-99); MEAN PLATELET VOLUME 10.2 fL (9.0-12.2); MONOCYTES # (AUTO) 0.4 10^3/uL (0.0-1.0); MONOCYTES % (AUTO) 11 % (0-12); NEUTROPHILS % (AUTO) 49 % (42-75); PLATELET COUNT 84 10^3/uL (130-400)
[2021-10-21 21:42] LABS: ALBUMIN 4.6 GM/DL (3.2-4.5); CHLORIDE 101 MMOL/L (98-107); POTASSIUM 3.3 MMOL/L (3.6-5.0)
[2021-10-21 21:43] LABS: SODIUM 142 MMOL/L (135-145)
[2021-10-21 21:44] LABS: INR 0.9 (0.8-1.4); PROTHROMBIN TIME PATIENT 12.1 SEC (12.2-14.7)
[2021-10-21 21:45] LABS: GLUCOSE 79 MG/DL (70-105); TOTAL PROTEIN 7.8 GM/DL (6.4-8.2)
[2021-10-21 21:46] LABS: CARBON DIOXIDE 22 MMOL/L (21-32)
[2021-10-21 21:47] LABS: BILIRUBIN,TOTAL 0.7 MG/DL (0.1-1.0)
[2021-10-21 21:48] LABS: ALKALINE PHOSPHATASE 126 U/L (40-136)
[2021-10-21 21:49] LABS: CREATININE SERUM 0.88 MG/DL (0.60-1.30); GFR ESTIMATED 115
[2021-10-21 21:50] LABS: BUN/CREATININE RATIO 9
[2021-10-21 21:51] LABS: ALANINE AMINOTRANSFERASE 107 U/L (0-55); MAGNESIUM 2.3 MG/DL (1.6-2.4)
--- NOTE | 2021-10-21 21:51 | Diagnostic Imaging Report ---
Indication: Cough and chest pain Portable chest 9:38 PM Heart size and pulmonary vascularity are normal. Lungs are clear. There are no effusions or pneumothoraces. IMPRESSION: No acute abnormalities in the chest Dictated by: Dictated on workstation # [id number]
[2021-10-21] MEDS ORDERED: LACTATED RINGERS 1,000 ML IV ONE (22:00)
[2021-10-22 00:17] LABS: AMPHETAMINE SCREEN, URINE NEGATIVE (NEGATIVE); BARBITURATE SCREEN URINE NEGATIVE (NEGATIVE); BENZODIAZEPINES SCREEN URINE NEGATIVE (NEGATIVE); CANNABINOID SCREEN, URINE POSITIVE (NEGATIVE); COCAINE SCREEN URINE NEGATIVE (NEGATIVE); METHADONE STAT NEGATIVE (NEGATIVE); METHAMPHETAMINE SCREEN URINE S NEGATIVE (NEGATIVE); OPIATE SCREEN URINE NEGATIVE (NEGATIVE); OXYCODONE STAT NEGATIVE (NEGATIVE); PROPOXYPHENE STAT NEGATIVE (NEGATIVE); TRICYCLIC ANTIDEPRESSANTS SCRE NEGATIVE (NEGATIVE)
--- NOTE | 2021-10-22 02:24 | ED Psychosocial ---
General Chief Complaint: Psych/Social Disorder Stated Complaint: CHEST PAIN, SOB Source: patient Exam Limitations: no limitations History of Present Illness Date Seen by Provider: Oct 21, 2021 Time Seen by Provider: 21:25 Initial Comments This 35-year-old man presents to the emergency room with complaints of cough, inspiratory chest discomfort, shortness of breath, and suicidal ideation. He is estranged from his and is dealing with depression. He does see behavioral health services at [facility]. He reports sending a picture of him holding up a belt implying he would hang himself with it. He states he does not have a means to perform suicide by other measures. He drinks a significant amount of vodka daily. He reports not having any vodka since yesterday. He denies any other recent drug use. Allergies and Home Medications Allergies Coded Allergies: DENISEANo Known Allergies (Unverified Allergy, Mild, 10/15/09) Patient Home Medication List Home Medication List Reviewed: Yes Clonidine HCl (Clonidine HCl) 0.1 Mg Tablet, 0.1 MG PO BID Prescribed by: ECD SCHUMACHER on 09/12/21 1151 Diazepam (Valium) 10 Mg Tablet, 10 MG PO BID PRN for ANXIETY Prescribed by: CED SCHUMACHER on 08/27/21 1533 Lorazepam (Ativan) 2 Mg Tablet, 2 MG PO Q6H PRN for ANXIETY Prescribed by: CED SCHUMACHER on 09/12/21 1152 Lorazepam (Ativan) 2 Mg Tablet, 2 MG PO Q6H PRN for ANXIETY Prescribed by: BABS SCHNEIDER on 09/21/21 1429 Ondansetron (Ondansetron Odt) 8 Mg Tab.rapdis, 8 MG PO Q8H PRN for nausea Prescribed by: MALIK HENLEY on 10/19/21 0259 Review of Systems Constitutional: see HPI; No fever EENTM: no symptoms reported Respiratory: see HPI Cardiovascular: see HPI Gastrointestinal: no symptoms reported Genitourinary: no symptoms reported Musculoskeletal: no symptoms reported Skin: no symptoms reported Psychiatric/Neurological: See HPI Past Vjvghsm-Azewea-Bvmrcn Hx Patient Social History Tobacco Use?: Yes Tobacco type used: Cigarettes Substance use?: Yes Substance type: Marijuana Alcohol Use?: Yes Alcohol type: Hard Liquor Alcohol Frequency: Daily Immunizations Up To Date Tetanus Booster (TDap): Unknown First/Initial COVID19 Vaccinat: No Vaccine Second COVID19 Vaccination Bronson: No Vaccine Third COVID19 Vaccination Date: No Vaccine Seasonal Allergies Seasonal Allergies: No Past Medical History Surgery/Hospitalization HX: DENTAL EXTRACTIONS Surgeries: Yes (TEETH REMOVED, "FATTY TUMOR" REMOVED FROM RT CHIN/NECK) Respiratory: No Currently Using CPAP: No Currently Using BIPAP: No Cardiac: No Neurological: No Genitourinary: No Gastrointestinal: No Musculoskeletal: Yes ("BROKE HIS BACK" --NO SURGERY, PER PT ) Endocrine: No HEENT: Yes (MULTIPLE DENTAL EXTRACTIONS) Cancer: No Psychosocial: Yes (SUBSTANCE ABUSE, alcohol dependence) Integumentary: Yes Psoriasis Blood Disorders: No Family Medical History No Pertinent Family Hx SOCIAL HISTORY: -ETOH--DRINKS 2 PINTS OF VODKA EVERY DAY, SOMETIMES MORE THAN THAT -DRUGS--REGULAR MARIJUANA USE -SMOKES 1 PPD Physical Exam Vital Signs - First Documented 10/21/21 21:18 Temp 36.3 Pulse 106 Resp 22 B/P (MAP) 112/81 (91) Pulse Ox 98 O2 Delivery Room Air Capillary Refill : Height, Weight, BMI Height: 5'11.00" Weight: 155lbs. oz. 70.338685ef; 20.00 BMI Method:Estimated General Appearance: WD/WN, mild distress, thin HEENT: PERRL/EOMI, normal ENT inspection, other (Oropharynx dry) Neck: normal inspection Respiratory: lungs clear, normal breath sounds, no respiratory distress Cardiovascular: regular rate, rhythm, no edema, no murmur Gastrointestinal: normal bowel sounds, non tender, soft Extremities: normal inspection, no pedal edema Neurologic/Psychiatric: no motor/sensory deficits, alert, normal mood/affect, oriented x 3 Appearance/Memory: appropriate appearance Behavior/Eye Contact: cooperative, good eye contact Thoughts/Hallucinations: other (uicidal ideation that resolved after he sobered) Skin: normal color, warm/dry Progress/Results/Core Measures Results/Orders Lab Results Laboratory Tests Test 10/21/21 21:22 10/21/21 21:39 10/22/21 00:00 Range/Units White Blood Count 4.0 L 4.3-11.0 10^3/uL Red Blood Count 5.04 4.30-5.52 10^6/uL Hemoglobin 16.3 13.3-17.7 g/dL Hematocrit 46 40-54 % Mean Corpuscular Volume 90 80-99 fL Mean Corpuscular Hemoglobin 32 25-34 pg Mean Corpuscular Hemoglobin Concent 36 32-36 g/dL Red Cell Distribution Width 13.1 10.0-14.5 % Platelet Count 84 L 130-400 10^3/uL Mean Platelet Volume 10.2 9.0-12.2 fL Immature Granulocyte % (Auto) 0 % Neutrophils (%) (Auto) 49 42-75 % Lymphocytes (%) (Auto) 37 12-44 % Monocytes (%) (Auto) 11 0-12 % Eosinophils (%) (Auto) 2 0-10 % Basophils (%) (Auto) 1 0-10 % Neutrophils # (Auto) 2.0 1.8-7.8 10^3/uL Lymphocytes # (Auto) 1.5 1.0-4.0 10^3/uL Monocytes # (Auto) 0.4 0.0-1.0 10^3/uL Eosinophils # (Auto) 0.1 0.0-0.3 10^3/uL Basophils # (Auto) 0.0 0.0-0.1 10^3/uL Immature Granulocyte # (Auto) 0.0 0.0-0.1 10^3/uL Prothrombin Time 12.1 L 12.2-14.7 SEC INR Comment 0.9 0.8-1.4 Activated Partial Thromboplast Time 29 24-35 SEC Sodium Level 142 135-145 MMOL/L Potassium Level 3.3 L 3.6-5.0 MMOL/L Chloride Level 101 98-107 MMOL/L Carbon Dioxide Level 22 21-32 MMOL/L Anion Gap 19 H 5-14 MMOL/L Blood Urea Nitrogen 8 7-18 MG/DL Creatinine 0.88 0.60-1.30 MG/DL Estimat Glomerular Filtration Rate 115 BUN/Creatinine Ratio 9 Glucose Level 79 70-105 MG/DL Calcium Level 9.0 8.5-10.1 MG/DL Corrected Calcium 8.5-10.1 MG/DL Magnesium Level 2.3 1.6-2.4 MG/DL Total Bilirubin 0.7 0.1-1.0 MG/DL Aspartate Amino Transf (AST/SGOT) 163 H 5-34 U/L Alanine Aminotransferase (ALT/SGPT) 107 H 0-55 U/L Alkaline Phosphatase 126 40-136 U/L Myoglobin 125.7 H 10.0-92.0 NG/ML Troponin I < 0.028 <0.028 NG/ML Total Protein 7.8 6.4-8.2 GM/DL Albumin 4.6 H 3.2-4.5 GM/DL Serum Alcohol 402 *H <10 MG/DL Influenza Type A (RT-PCR) Not Detected Not Detecte Influenza Type B (RT-PCR) Not Detected Not Detecte SARS-CoV-2 RNA (RT-PCR) Not Detected Not Detecte Urine Opiates Screen NEGATIVE NEGATIVE Urine Oxycodone Screen NEGATIVE NEGATIVE Urine Methadone Screen NEGATIVE NEGATIVE Urine Propoxyphene Screen NEGATIVE NEGATIVE Urine Barbiturates Screen NEGATIVE NEGATIVE Ur Tricyclic Antidepressants Screen NEGATIVE NEGATIVE Urine Phencyclidine Screen NEGATIVE NEGATIVE Urine Amphetamines Screen NEGATIVE NEGATIVE Urine Methamphetamines Screen NEGATIVE NEGATIVE Urine Benzodiazepines Screen NEGATIVE NEGATIVE Urine Cocaine Screen NEGATIVE NEGATIVE Urine Cannabinoids Screen POSITIVE H NEGATIVE My Orders Orders - SUNDAR LLOYD MD Cbc With Automated Diff (10/21/21:25) Magnesium (10/21/21 21:25) Chest 1 View, Ap/Pa Only (10/21/21 21:25) Ekg Tracing (10/21/21:25) Comprehensive Metabolic Panel (10/21/21:25) Myoglobin Serum (10/21/21:25) Protime With Inr (10/21/21 21:25) Partial Thromboplastin Time (10/21/21 21:25) O2 (10/21/21 21:25) Monitor-Rhythm Ecg Trace Only (10/21/21 21:25) Ed Iv/Invasive Line Start (10/21/21 21:25) Troponin I Jessi (10/21/21 21:25) Covid 19 Inhouse Test (10/21/21 21:25) Influenza A And B By Pcr (10/21/21 21:25) Alcohol (10/21/21 21:25) Drug Screen Stat (Urine) (10/21/21 21:25) Lactated Ringers (Lr 1000 Ml Iv Solution (10/21/21 22:00) Medications Given in ED Current Medications Medications Dose Ordered Sig/Kaiden Route Start Time Stop Time Status Last Admin Dose Admin Lactated Ringer's 1,000 ml @ 0 mls/hr Q0M ONCE IV 10/21/21 22:00 10/21/21 22:01 DC 10/21/21 22:41 0 MLS/HR Vital Signs/I&O 10/21/21 10/22/21 21:18 02:40 Temp 36.3 Pulse 106 97 Resp 22 14 B/P (MAP) 112/81 (91) 107/77 Pulse Ox 98 100 O2 Delivery Room Air Room Air Progress Progress Note : Time: 02:25 Progress Note Work-up was relatively unremarkable. Patient was hydrated with IV fluids. Alcohol level was greater than 400 so he does not immediately excreted. He was allowed to sober for several hours. Upon reevaluation he was no longer suicidal and verbally contracted for safety, committing to calling the crisis line if necessary. He was ultimately discharged home in stable condition. Initial ECG Impression Date: Oct 21, 2021 Initial ECG Impression Time: 22:19 Initial ECG Rate: 82 Initial ECG Rhythm: Normal Sinus Initial ECG Intervals: Normal Initial ECG Impression: Normal Comment Normal sinus rhythm with no ST elevation or depression. No abnormal intervals or axis deviation. Diagnostic Imaging Diagonstic Imaging: Xray Plain Films/CT/US/NM/MRI: chest Comments NAME: SUKUMAR MARCUS [facility] REC#: [id number] PT STATUS: REG ER : 1985 PHYSICIAN: SUNDAR LLOYD MD ADMIT DATE: 10/21/21/ER Signed Date of Exam:10/21/21 CHEST 1 VIEW, AP/PA ONLY Indication: Cough and chest pain Portable chest 9:38 PM Heart size and pulmonary vascularity are normal. Lungs are clear. There are no effusions or pneumothoraces. IMPRESSION: No acute abnormalities in the chest Dictated by: Dictated on workstation # [id number] Dict: 10/21/212148 Trans: 10/21/212149 [facility] [id number] Interpreted by: SIL APONTE MD Electronically signed by: SIL APONTE MD 10/21/212149 Departure Impression Primary Impression: Suicidal ideation Additional Impressions: Atypical chest pain Alcohol dependence Qualified Codes: F10.29 - Alcohol dependence with unspecified alcohol- induced disorder Flu-like symptoms Disposition: 01 HOME, SELF-CARE Condition: Improved Departure-Patient Inst. Decision time for Depature: 02:15 Referrals: [facility] (PCP/Family) Primary Care Physician Patient Instructions: ALCOHOL AND SUBSTANCE ABUSE, Suicide Prevention Add. Discharge Instructions: Gradually taper down on your alcohol consumption. Avoid stopping alcohol abruptly as this may cause life-threatening withdrawal and seizures. Do not drink alcohol to intoxication. Follow-up with your primary care provider soon as possible. If you have a return of suicidal thinking or desire for other self-harm or harm of others, please call the crisis line at [phone]. Alternatively you may call 911 or return to the emergency room. Call with questions or concerns. Return to the ER if you have other urgent medical needs. All discharge instructions reviewed with patient and/or family. Voiced understanding. Copy Copies To 1: NESHA PEARSON JOSHUA T MD Oct 22, 2021 02:24
[2021-10-22 02:40] VITALS: BP 107/77
== END 2021-10-22 02:40 | disposition home or self-care (01) ==
LOC: EDUNIT# 21:18 → ER 21:19
DX: R45.851 Suicidal ideations (principal); R07.89 Other chest pain; F10.20 Alcohol dependence, uncomplicated; J11.1 Influenza due to unidentified influenza virus with other respiratory manifestations; Z72.0 Tobacco use; Z20.822 Contact with and (suspected) exposure to COVID-19
CPT/HCPCS: 71045; 80053; 80306; 83735; 83874; 84484; 85025; 85610; 85730; 87636; 93005; 93041; 99284; G0480; 36415; 80320

== ENCOUNTER 2021-12-27 14:50 | Emergency (ER) | payer MEDICAID | END 2021-12-27 15:07 | disposition left against medical advice (07) | LOC: EDUNIT# 14:50 → ER 14:51 | DX: R05.9 Cough, unspecified (principal); R09.81 Nasal congestion ==

== ENCOUNTER 2022-01-01 16:03 | Emergency (ER) | payer MEDICAID ==
[~2022-01-01] VITALS: Ht 182.8 cm; Wt 69.1 kg
[2022-01-01 16:55] LABS: BASOPHILS % (AUTO) 0 % (0-10); EOSINOPHILS % (AUTO) 0 % (0-10); HEMATOCRIT 43 % (40-54); HEMOGLOBIN 14.8 g/dL (13.3-17.7); LYMPHOCYTES # (AUTO) 0.9 X 10^3 (1.0-4.0); LYMPHOCYTES % (AUTO) 13 % (12-44); MEAN CORPUSCULAR HEMOGLOBIN 32 pg (25-34); MEAN CORPUSCULAR HGB CONC 35 g/dL (32-36); MEAN CORPUSCULAR VOLUME 93 fL (80-99); MONOCYTES # (AUTO) 0.6 X 10^3 (0.0-1.0); MONOCYTES % (AUTO) 8 % (0-12); NEUTROPHILS # (AUTO) 5.6 X 10^3 (1.8-7.8); NEUTROPHILS % (AUTO) 78 % (42-75); PLATELET COUNT 73 10^3/uL (130-400); WHITE BLOOD COUNT 7.2 10^3/uL (4.3-11.0)
[2022-01-01] MEDS ORDERED: NS IV 1000 ML 1,000 ML IV SCH ×2 (17:00→18:30)
[2022-01-01 17:06] LABS: ALANINE AMINOTRANSFERASE 62 U/L (0-55); ALBUMIN 4.5 GM/DL (3.2-4.5); ALKALINE PHOSPHATASE 121 U/L (40-136); BUN/CREATININE RATIO 15; CALCIUM 9.2 MG/DL (8.5-10.1); CARBON DIOXIDE 19 MMOL/L (21-32); CHLORIDE 99 MMOL/L (98-107); CREATININE SERUM 0.89 MG/DL (0.60-1.30); GFR ESTIMATED 114; GLUCOSE 94 MG/DL (70-105); SALICYLATE < 5.0 MG/DL (5.0-20.0); SODIUM 140 MMOL/L (135-145); TOTAL PROTEIN 7.3 GM/DL (6.4-8.2)
[2022-01-01 17:20] LABS: ACETAMINOPHEN < 10 UG/ML (10-30)
[2022-01-01 17:35] LABS: AMPHETAMINE SCREEN, URINE NEGATIVE (NEGATIVE); BARBITURATE SCREEN URINE NEGATIVE (NEGATIVE); BENZODIAZEPINES SCREEN URINE NEGATIVE (NEGATIVE); CANNABINOID SCREEN, URINE NEGATIVE (NEGATIVE); COCAINE SCREEN URINE NEGATIVE (NEGATIVE); METHADONE STAT NEGATIVE (NEGATIVE); OPIATE SCREEN URINE NEGATIVE (NEGATIVE); OXYCODONE STAT NEGATIVE (NEGATIVE); PROPOXYPHENE STAT NEGATIVE (NEGATIVE); TRICYCLIC ANTIDEPRESSANTS SCRE NEGATIVE (NEGATIVE)
--- NOTE | 2022-01-01 18:24 | ED Psychosocial ---
General Chief Complaint: Substance Abuse Stated Complaint: ETOH DETOX Nursing Triage Note: Pt arrival to ER via [facility] with complaint of alcohol detox. Pt has IV in L. AC and has NS running. Pt admits to drinking a pint today, but normally drinks 750 ml or more of liquor daily. Pt complains of nausea and feeling shaky. Pt states that he is going through alot with his and wants to go back to rehab. Source: patient Exam Limitations: intoxication History of Present Illness Date Seen by Provider: Jan 01, 2022 Time Seen by Provider: 17:50 Initial Comments Patient is a 36-year-old male long-term alcoholic who presents to the emergency department wanting alcohol detox. Patient states that he is wanting alcohol detox because he wants to be able to see his son with whom he is estranged. He states he drank at least a half a pint of vodka today. That is his drink of choice. He states he has had intermittent chest discomfort with radiation to the right arm. Not brought on by activity. It is intermittent. He is intermittently nauseated. He is quite obviously intoxicated at this time with slightly slurred speech although he is making sense and has logical speech. He denies fevers or chills, shortness of breath. No abdominal pain. He denies hematemesis or black or bloody stools. No urinary complaints. I talked to him about [place] [facility] and he states he has not called there in quite a while. He has not been to [facility] in a while either. All other review of systems reviewed and negative except as stated Severity: severe Allergies and Home Medications Allergies Coded Allergies: NKANo Known Allergies (Unverified Allergy, Mild, 10/15/09) Patient Home Medication List Home Medication List Reviewed: Yes Clonidine HCl (Clonidine HCl) 0.1 Mg Tablet, 0.1 MG PO BID Prescribed by: CED SCHUMACHER on 09/12/21 1151 Diazepam (Valium) 10 Mg Tablet, 10 MG PO BID PRN for ANXIETY Prescribed by: CED SCHUMACHER on 08/27/21 1533 Lorazepam (Ativan) 2 Mg Tablet, 2 MG PO Q6H PRN for ANXIETY Prescribed by: CED SCHUMACHER on 09/12/21 1152 Lorazepam (Ativan) 2 Mg Tablet, 2 MG PO Q6H PRN for ANXIETY Prescribed by: BABS SCHNEIDER on 09/21/21 1429 Ondansetron (Ondansetron Odt) 8 Mg Tab.rapdis, 8 MG PO Q8H PRN for nausea Prescribed by: MALIK HENLEY on 10/19/21 0259 Review of Systems Constitutional: see HPI EENTM: no symptoms reported Respiratory: no symptoms reported Cardiovascular: chest pain Gastrointestinal: nausea Genitourinary: no symptoms reported Musculoskeletal: no symptoms reported Skin: no symptoms reported Psychiatric/Neurological: Anxiety, Depressed, Emotional Problems All Other Systems Reviewed Negative Unless Noted: Yes Past Vdnnill-Lgcuhb-Svyvjr Hx Patient Social History Tobacco Use?: Yes Tobacco type used: Cigarettes Smoking Status: Current Everyday Smoker Use of E-Cig and/or Vaping dev: No Substance use?: No Alcohol Use?: Yes Alcohol type: Hard Liquor Alcohol Frequency: Daily Pt feels they are or have been: No Immunizations Up To Date Tetanus Booster (TDap): Unknown Influenza Vaccine Up-to-Date: No; Not Current First/Initial COVID19 Vaccinat: No Vaccine Second COVID19 Vaccination Bronson: No Vaccine Third COVID19 Vaccination Date: No Vaccine Seasonal Allergies Seasonal Allergies: No Past Medical History Surgery/Hospitalization HX: ETOH ABUSE, DEPRESSION, ANXIETY Surgeries: Yes (TEETH REMOVED, "FATTY TUMOR" REMOVED FROM RT CHIN/NECK) Respiratory: No Currently Using CPAP: No Currently Using BIPAP: No Cardiac: No Neurological: No Genitourinary: No Gastrointestinal: No Musculoskeletal: Yes ("BROKE HIS BACK" --NO SURGERY, PER PT ) Endocrine: No HEENT: Yes (MULTIPLE DENTAL EXTRACTIONS) Cancer: No Psychosocial: Yes (SUBSTANCE ABUSE, alcohol dependence) Integumentary: Yes Psoriasis Blood Disorders: No Family Medical History No Pertinent Family Hx SOCIAL HISTORY: -ETOH--DRINKS 2 PINTS OF VODKA EVERY DAY, SOMETIMES MORE THAN THAT -DRUGS--REGULAR MARIJUANA USE -SMOKES 1 PPD Physical Exam Vital Signs - First Documented 01/01/22 16:15 Temp 37.0 Pulse 111 Resp 20 B/P (MAP) 139/110 (120) Pulse Ox 99 O2 Delivery Room Air Capillary Refill : Less Than 3 Seconds Height, Weight, BMI Height: 5'11.00" Weight: 155lbs. oz. [id number]; 20.00 BMI Method:Estimated General Appearance: WD/WN, mild distress (Tearful) HEENT: PERRL/EOMI, other (Swollen eyelids bilaterally with conjunctival injection) Neck: full range of motion Respiratory: lungs clear, normal breath sounds, no respiratory distress, no accessory muscle use Cardiovascular: regular rate, rhythm Gastrointestinal: normal bowel sounds, non tender, soft Extremities: normal range of motion, non-tender, normal inspection, no pedal edema, no calf tenderness Neurologic/Psychiatric: alert, oriented x 3, depressed affect Appearance/Memory: disheveled, other (Has urinated in the bed) Behavior/Eye Contact: cooperative, good eye contact, normal speech Thoughts/Hallucinations: normal thought pattern, no apparent hallucination Skin: normal color, warm/dry, other (Scattered rashes consistent with psoriasis to the upper extremities and torso) Progress/Results/Core Measures Results/Orders Lab Results Laboratory Tests Test 01/01/22 16:06 01/01/22 17:12 Range/Units White Blood Count 7.2 4.3-11.0 10^3/uL Red Blood Count 4.62 4.30-5.52 10^6/uL Hemoglobin 14.8 13.3-17.7 g/dL Hematocrit 43 40-54 % Mean Corpuscular Volume 93 80-99 fL Mean Corpuscular Hemoglobin 32 25-34 pg Mean Corpuscular Hemoglobin Concent 35 32-36 g/dL Red Cell Distribution Width 14.3 10.0-14.5 % Platelet Count 73 L 130-400 10^3/uL Mean Platelet Volume 10.0 9.0-12.2 fL Immature Granulocyte % (Auto) 0 % Neutrophils (%) (Auto) 78 H 42-75 % Lymphocytes (%) (Auto) 13 12-44 % Monocytes (%) (Auto) 8 0-12 % Eosinophils (%) (Auto) 0 0-10 % Basophils (%) (Auto) 0 0-10 % Neutrophils # (Auto) 5.6 1.8-7.8 X 10^3 Lymphocytes # (Auto) 0.9 L 1.0-4.0 X 10^3 Monocytes # (Auto) 0.6 0.0-1.0 X 10^3 Eosinophils # (Auto) 0.0 0.0-0.3 10^3/uL Basophils # (Auto) 0.0 0.0-0.1 10^3/uL Immature Granulocyte # (Auto) 0.0 0.0-0.1 10^3/uL Sodium Level 140 135-145 MMOL/L Potassium Level 4.0 3.6-5.0 MMOL/L Chloride Level 99 98-107 MMOL/L Carbon Dioxide Level 19 L 21-32 MMOL/L Anion Gap 22 H 5-14 MMOL/L Blood Urea Nitrogen 13 7-18 MG/DL Creatinine 0.89 0.60-1.30 MG/DL Estimat Glomerular Filtration Rate 114 BUN/Creatinine Ratio 15 Glucose Level 94 70-105 MG/DL Calcium Level 9.2 8.5-10.1 MG/DL Corrected Calcium 8.8 8.5-10.1 MG/DL Total Bilirubin 1.0 0.1-1.0 MG/DL Aspartate Amino Transf (AST/SGOT) 116 H 5-34 U/L Alanine Aminotransferase (ALT/SGPT) 62 H 0-55 U/L Alkaline Phosphatase 121 40-136 U/L Total Protein 7.3 6.4-8.2 GM/DL Albumin 4.5 3.2-4.5 GM/DL Salicylates Level < 5.0 L 5.0-20.0 MG/DL Acetaminophen Level < 10 L 10-30 UG/ML Serum Alcohol 446 *H <10 MG/DL Urine Opiates Screen NEGATIVE NEGATIVE Urine Oxycodone Screen NEGATIVE NEGATIVE Urine Methadone Screen NEGATIVE NEGATIVE Urine Propoxyphene Screen NEGATIVE NEGATIVE Urine Barbiturates Screen NEGATIVE NEGATIVE Ur Tricyclic Antidepressants Screen NEGATIVE NEGATIVE Urine Phencyclidine Screen NEGATIVE NEGATIVE Urine Amphetamines Screen NEGATIVE NEGATIVE Urine Methamphetamines Screen NEGATIVE NEGATIVE Urine Benzodiazepines Screen NEGATIVE NEGATIVE Urine Cocaine Screen NEGATIVE NEGATIVE Urine Cannabinoids Screen NEGATIVE NEGATIVE My Orders Orders - MALIK HENLEY MD Ed Iv/Invasive Line Start (01/01/22 16:46) Alcohol (01/01/22 16:46) Cbc With Automated Diff (01/01/22 16:46) Comprehensive Metabolic Panel (01/01/22 16:46) Drug Screen Stat (Urine) (01/01/22 16:46) Salicylate (01/01/22 16:46) Acetaminophen (01/01/22 16:46) Ns Iv 1000 Ml (Sodium Chloride 0.9%) (01/01/22 17:00) Ekg Tracing (01/01/22 18:24) Ns Iv 1000 Ml (Sodium Chloride 0.9%) (01/01/22 18:30) Pantoprazole Injection (Protonix Injecti (01/01/22 18:30) Ondansetron Injection (Zofran Injectio (01/01/22 18:30) Ketorolac Injection (Toradol Injection) (01/01/22 18:30) Vital Signs/I&O 01/01/22 16:15 Temp 37.0 Pulse 111 Resp 20 B/P (MAP) 139/110 (120) Pulse Ox 99 O2 Delivery Room Air Blood Pressure Mean: 120 Progress Progress Note : Time: 18: Progress Note Patient seen and examined, quite tearful and anxious. Concerned he might have an alcohol withdrawal seizure however his alcohol is greatly above 400. The rest of his labs are unremarkable. Mild elevation in his LFTs. He denies suicidal ideation although he states he has occasional thoughts without a plan. He denies homicidal ideation, auditory or visual hallucinations. We talked about outpatient follow-up with [facility] and [facility]. He states that he plans to go. We will hydrate him with a second liter give him some nausea medicine and some Protonix. His exam is otherwise within normal limits. He is stable for discharge and does have a sober ride home. Initial ECG Impression Date: Jan 01, 2022 Initial ECG Impression Time: 18:33 Initial ECG Rate: 86 Initial ECG Rhythm: Normal Sinus Initial ECG Intervals: Normal Initial ECG Impression: Normal Departure Impression Primary Impression: Alcohol abuse Additional Impressions: Acute alcoholic intoxication Qualified Codes: F10.920 - Alcohol use, unspecified with intoxication, u ncomplicated Depression Qualified Codes: F32.1 - Major depressive disorder, single episode, moderate Disposition: 01 HOME, SELF-CARE Condition: Stable Departure-Patient Inst. Decision time for Depature: 18:23 Referrals: [facility] (PCP/Family) Primary Care Physician Patient Instructions: ALCOHOL AND SUBSTANCE ABUSE Add. Discharge Instructions: You need to follow-up with [facility] and [facility] [place] to get back into alcohol rehab. Come back to the emergency room for any new, concerning or emergent complaints. MALIK HENLEY MD Jan 01, 2022 18:24
[2022-01-01] MEDS ORDERED: PANTOPRAZOLE 40 MG (PROTONIX) VIAL IV ONE (18:30)
[2022-01-01] MEDS ORDERED: KETOROLAC 30 MG/ML VIAL IVP ONE (18:30)
[2022-01-01] MEDS ORDERED: ONDANSETRON 4 MG/2 ML (SDV) Z0FRAN IVP ONE (18:30)
[2022-01-01 19:30] VITALS: BP 132/97
== END 2022-01-01 19:35 | disposition home or self-care (01) ==
LOC: EDUNIT# 16:03 → ER 16:04
DX: F10.229 Alcohol dependence with intoxication, unspecified (principal); F32.1 Major depressive disorder, single episode, moderate; F17.210 Nicotine dependence, cigarettes, uncomplicated; Y90.8 Blood alcohol level of 240 mg/100 ml or more
CPT/HCPCS: 80053; 80306; 85025; 99284; G0480 ×3; 36415; 80320; 80329; 93005